=== PATIENT | female | born 1990 | race Two or more races ===

== ENCOUNTER 2017-05-17 20:24 | Emergency (ER) | payer MEDICAID ==
[~2017-05-17] VITALS: Ht 160 cm; Wt 72.6 kg
[2017-05-17 21:10] LABS: Basophils # (auto) 0 uL; Eosinophils # (auto) 0 uL; Eosinophils % (auto) 0.2 % (0.0-7.0); Lymphocytes # (auto) 3.2 uL; Monocytes # (auto) 0.8 uL; Monocytes % (auto) 6.2 % (0.0-12.0); Neutrophils # (auto) 8.5 uL
[2017-05-17 21:10] LABS: Urine Bacteria FEW /hpf (None Seen); Urine Blood Negative /uL (Negative); Urine Mucus FEW (None Seen); Urine Specific Gravity 1.023 (1.001-1.035); Urine WBC 19 /hpf (0 - 5)
[2017-05-17 21:12] LABS: Basophils % (auto) 0.1 % (0.0-2.0); Hematocrit 38.5 % (36.0-46.0); Lymphocytes % (auto) 25.5 % (10.0-50.0); Mean Corpuscular Hemoglobin 26.7 pg (28.0-32.0); Mean Corpuscular Hgb Conc. 33.9 g/dL (32.0-36.0); Platelet Count (auto) 242 10^3/uL (140-450); Red Blood Cells 4.87 10^6/uL (4.0-5.20); Red Cell Distribution Width 13.3 % (11.8-14.3); White Blood Cell 12.4 10^3/uL (4.4-10.8)
[2017-05-17 21:23] LABS: Albumin 3.6 g/dL (3.4-5.0); BUN/Creatinine Ratio 21.7; Calcium 8.5 mg/dL (8.5-10.1); Potassium 3.6 mmol/L (3.5-5.1)
[2017-05-17 21:25] LABS: Bilirubin, Total 0.3 mg/dL (0.2-1.0); Total Protein 7.5 g/dL (6.4-8.2)
[2017-05-18 02:54] VITALS: BP 150/100
== END 2017-05-18 03:32 | disposition home or self-care (01) ==
LOC: ER 20:24
DX: N39.0 Urinary tract infection, site not specified (principal)
CPT/HCPCS: 36415; 76801; 76817; 80053; 81001; 81025; 84702; 85025

== ENCOUNTER 2017-05-22 17:09 | Emergency (ER) | payer MEDICAID ==
[~2017-05-22] VITALS: Ht 157.5 cm; Wt 72.6 kg
[2017-05-22 18:13] LABS: Basophils # (auto) 0 uL; Basophils % (auto) 0.1 % (0.0-2.0); Eosinophils # (auto) 0 uL; Eosinophils % (auto) 0.1 % (0.0-7.0); Hematocrit 39.4 % (36.0-46.0); Hemoglobin 13.8 g/dL (12.2-16.2); Lymphocytes # (auto) 2.8 uL; Lymphocytes % (auto) 25.9 % (10.0-50.0); Mean Corpuscular Hemoglobin 27.5 pg (28.0-32.0); Mean Corpuscular Hgb Conc. 35.1 g/dL (32.0-36.0); Mean Corpuscular Volume 78.4 fL (80.0-100.0); Monocytes # (auto) 0.6 uL; Monocytes % (auto) 5.4 % (0.0-12.0); Neutrophils # (auto) 7.3 uL; Neutrophils % (auto) 68.5 % (37.0-80.0); Platelet Count (auto) 235 10^3/uL (140-450); Red Blood Cells 5.03 10^6/uL (4.0-5.20); Red Cell Distribution Width 13.3 % (11.8-14.3); White Blood Cell 10.7 10^3/uL (4.4-10.8)
[2017-05-22 22:19] LABS: Urine Bacteria NONE SEEN /hpf (None Seen); Urine Blood Negative /uL (Negative); Urine Mucus FEW (None Seen); Urine Specific Gravity 1.038 (1.001-1.035); Urine WBC 4 /hpf (0 - 5)
[2017-05-22] MEDS ORDERED: SODIUM CHLORIDE 0.9% 1,000 ML IV ONE (23:30)
[2017-05-22] MEDS ORDERED: ONDANSETRON HCL 4 MG/2 ML VIAL IV ONE (23:30)
[2017-05-23 00:44] VITALS: BP 134/78
== END 2017-05-23 00:55 | disposition home or self-care (01) ==
LOC: ER 17:09 → EDBD 17:09 → EDUNIT# 17:09 → ER 05-23 00:55
DX: O20.0 Threatened abortion (principal); O16.1 Unspecified maternal hypertension, first trimester; Z3A.09 9 weeks gestation of pregnancy
CPT/HCPCS: 36415; 76801; 81001; 84702; 85025; 96361; 96374; 99285; J2405

== ENCOUNTER → 2017-06-01 | Outpatient (CLI) | payer MEDICAID ==
[2017-06-01 12:13] LABS: Basophils # (auto) 0 uL; Basophils % (auto) 0.2 % (0.0-2.0); Eosinophils # (auto) 0 uL; Eosinophils % (auto) 0.2 % (0.0-7.0); Hematocrit 39.9 % (36.0-46.0); Hemoglobin 13.9 g/dL (12.2-16.2); Lymphocytes # (auto) 2.3 uL; Lymphocytes % (auto) 26.6 % (10.0-50.0); Mean Corpuscular Hemoglobin 27.2 pg (28.0-32.0); Mean Corpuscular Hgb Conc. 34.8 g/dL (32.0-36.0); Mean Corpuscular Volume 78.4 fL (80.0-100.0); Monocytes # (auto) 0.4 uL; Monocytes % (auto) 4.7 % (0.0-12.0); Neutrophils % (auto) 68.3 % (37.0-80.0); Platelet Count (auto) 243 10^3/uL (140-450); Red Cell Distribution Width 13.5 % (11.8-14.3); White Blood Cell 8.8 10^3/uL (4.4-10.8)
[2017-06-01 12:59] LABS: Alcohol, Urine < 3.0 mg/dL (0-5); Amphetamine Screen, Urine NEGATIVE (NEGATIVE); Barbiturate Scree,Urine NEGATIVE (NEGATIVE); Benzodiazephine Screen, Urine NEGATIVE (NEGATIVE); Cannabinoid Screen, Urine POSITIVE (NEGATIVE); Cocaine Screen, Urine NEGATIVE (NEGATIVE); Opiate Scree,Urine NEGATIVE (NEGATIVE); Phencyclidine Screen, Urine NEGATIVE (NEGATIVE)
[2017-06-01 13:06] LABS: Beta HCG, Quantitative 57004 mlU/mL (1-3)
[2017-06-01 13:47] LABS: Thyroid Stimulating Hormone < 0.01 uIU/mL (0.358-3.74)
== END | disposition home or self-care (01) ==
LOC: LAB 11:15
PROVIDERS: ATTEND Specialist
DX: Z34.81 Encounter for supervision of other normal pregnancy, first trimester (principal); Z3A.11 11 weeks gestation of pregnancy
CPT/HCPCS: 36415; 80307; 83036; 84439; 84443; 84702; 85025; 86592; 86703; 86762; 86850; 86900; 86901; 87086; 87340; 87591

== ENCOUNTER 2017-06-15 00:34 | Emergency (ER) | payer MEDICAID ==
[~2017-06-15] VITALS: Ht 157.5 cm; Wt 73.0 kg
[2017-06-15 00:45] VITALS: BP 134/80
[2017-06-15 01:21] LABS: Basophils # (auto) 0 uL; Basophils % (auto) 0.2 % (0.0-2.0); Eosinophils # (auto) 0.1 uL; Eosinophils % (auto) 0.4 % (0.0-7.0); Hematocrit 37.2 % (36.0-46.0); Hemoglobin 12.9 g/dL (12.2-16.2); Lymphocytes # (auto) 2.9 uL; Lymphocytes % (auto) 24.1 % (10.0-50.0); Mean Corpuscular Hemoglobin 27.5 pg (28.0-32.0); Mean Corpuscular Hgb Conc. 34.7 g/dL (32.0-36.0); Mean Corpuscular Volume 79.4 fL (80.0-100.0); Monocytes # (auto) 0.6 uL; Monocytes % (auto) 5.3 % (0.0-12.0); Neutrophils # (auto) 8.3 uL; Nucleated Red Blood Cells % 0.1 %; Platelet Count (auto) 230 10^3/uL (140-450); Red Blood Cells 4.68 10^6/uL (4.0-5.20); Red Cell Distribution Width 13.3 % (11.8-14.3); White Blood Cell 11.9 10^3/uL (4.4-10.8)
[2017-06-15 01:39] LABS: Albumin 3.3 g/dL (3.4-5.0); Calcium 9.2 mg/dL (8.5-10.1); Potassium 3.4 mmol/L (3.5-5.1)
[2017-06-15 01:42] LABS: BUN/Creatinine Ratio 19.6; Bilirubin, Total 0.4 mg/dL (0.2-1.0); Total Protein 7.3 g/dL (6.4-8.2)
[2017-06-15 02:09] LABS: Urine Bacteria FEW /hpf (None Seen); Urine Blood Negative /uL (Negative); Urine Specific Gravity 1.008 (1.001-1.035); Urine WBC 5 /hpf (0 - 5)
== END 2017-06-15 04:41 | disposition left against medical advice (07) ==
LOC: ER 00:34
DX: R10.30 Lower abdominal pain, unspecified (principal); Z53.21 Procedure and treatment not carried out due to patient leaving prior to being seen by health care provider
CPT/HCPCS: 36415; 80053; 81001; 81025; 84702; 85025

== ENCOUNTER 2017-11-15 10:15 | Observation (INO) | payer MEDICAID ==
[~2017-11-15 10:15] MED LIST: PREN-96 PO
== END 2017-11-15 13:15 | disposition home or self-care (01) | DRG 566 ==
LOC: LDRP 10:15
PROVIDERS: ADMIT Obstetrics & Gynecology; ATTEND Obstetrics & Gynecology
DX: O10.913 Unspecified pre-existing hypertension complicating pregnancy, third trimester (principal); E05.90 Thyrotoxicosis, unspecified without thyrotoxic crisis or storm; O99.283 Endocrine, nutritional and metabolic diseases complicating pregnancy, third trimester; Z3A.35 35 weeks gestation of pregnancy; Z87.891 Personal history of nicotine dependence
CPT/HCPCS: 59025; 76818; 81002; G0378

== ENCOUNTER 2017-11-23 11:47 | Observation (INO) | payer MEDICAID | END 2017-11-23 13:15 | disposition home or self-care (01) | DRG 566 | LOC: LDRP 11:47 | PROVIDERS: ADMIT Obstetrics & Gynecology; ATTEND Obstetrics & Gynecology | DX: O13.3 Gestational [pregnancy-induced] hypertension without significant proteinuria, third trimester (principal); O26.893 Other specified pregnancy related conditions, third trimester; G43.909 Migraine, unspecified, not intractable, without status migrainosus; M54.9 Dorsalgia, unspecified; R50.9 Fever, unspecified; Z3A.36 36 weeks gestation of pregnancy | CPT/HCPCS: 59025; 76818; 81002; G0378 ==

== ENCOUNTER 2017-11-30 11:11 | Observation (INO) | payer MEDICAID ==
[2017-11-30 13:55] LABS: Urine WBC None Seen /hpf (0 - 5)
[2017-11-30 14:12] LABS: Urine Bacteria NONE SEEN /hpf (None Seen); Urine Blood Negative /uL (Negative); Urine Specific Gravity 1.003 (1.001-1.035)
[2017-11-30 14:18] LABS: Basophils # (auto) 0.1 uL; Basophils % (auto) 0.5 % (0.0-2.0); Eosinophils # (auto) 0 uL; Eosinophils % (auto) 0.2 % (0.0-7.0); Hematocrit 37.9 % (36.0-46.0); Hemoglobin 12.8 g/dL (12.2-16.2); Lymphocytes # (auto) 2.1 uL; Lymphocytes % (auto) 18.6 % (10.0-50.0); Mean Corpuscular Hemoglobin 27.8 pg (28.0-32.0); Mean Corpuscular Hgb Conc. 33.9 g/dL (32.0-36.0); Mean Corpuscular Volume 82.1 fL (80.0-100.0); Monocytes # (auto) 0.6 uL; Neutrophils # (auto) 8.6 uL; Neutrophils % (auto) 75.7 % (37.0-80.0); Nucleated Red Blood Cells % 0.1 %; Platelet Count (auto) 223 10^3/uL (140-450); Red Blood Cells 4.62 10^6/uL (4.0-5.20); Red Cell Distribution Width 12.8 % (11.8-14.3); White Blood Cell 11.3 10^3/uL (4.4-10.8)
[2017-11-30 14:19] LABS: INR 0.81 (0.9-1.15); Partial Thromboplastin Time 25.6 sec (23.78-33.04); Prothrombin Time 8.8 sec (9.27-12.13)
[2017-11-30 14:32] LABS: Albumin 2.5 g/dL (3.4-5.0); Calcium 8.6 mg/dL (8.5-10.1); Potassium 4.2 mmol/L (3.5-5.1)
[2017-11-30 14:34] LABS: Uric Acid 4.6 mg/dL (2.6-6.0)
[2017-11-30 14:37] LABS: Bilirubin, Total 0.2 mg/dL (0.2-1.0)
== END 2017-11-30 15:00 | disposition home or self-care (01) | DRG 566 ==
LOC: LDRP 11:11
PROVIDERS: ADMIT Obstetrics & Gynecology; ATTEND Obstetrics & Gynecology
DX: O26.893 Other specified pregnancy related conditions, third trimester (principal); I10 Essential (primary) hypertension; O62.9 Abnormality of forces of labor, unspecified; Z3A.37 37 weeks gestation of pregnancy
CPT/HCPCS: 36415; 59025; 76818; 80053; 81001; 81002; 84550; 85025; 85610; 85730; G0378

== ENCOUNTER 2017-12-02 08:50 | Observation (INO) | payer MEDICAID ==
[2017-12-02 10:15] LABS: Protein, Urine 7.1 mg/dL (0.0-11.9)
[2017-12-02 10:21] LABS: 24 Hr. Total Protein, Urine 99.4 mg/24 Hr (<149.1)
== END 2017-12-02 10:38 | disposition home or self-care (01) | DRG 566 ==
LOC: LDRP 08:50
PROVIDERS: ADMIT Obstetrics & Gynecology; ATTEND Obstetrics & Gynecology
DX: O13.3 Gestational [pregnancy-induced] hypertension without significant proteinuria, third trimester (principal); E03.9 Hypothyroidism, unspecified; O99.283 Endocrine, nutritional and metabolic diseases complicating pregnancy, third trimester; Z3A.37 37 weeks gestation of pregnancy; Z87.891 Personal history of nicotine dependence
CPT/HCPCS: 59025; 81002; 84156; G0378

== ENCOUNTER 2017-12-06 22:02 | Observation (INO) | payer MEDICAID ==
[2017-12-06 23:38] LABS: Urine Bacteria NONE SEEN /hpf (None Seen); Urine Blood Negative /uL (Negative); Urine Specific Gravity 1.025 (1.001-1.035); Urine WBC 1 /hpf (0 - 5)
[2017-12-06 23:48] LABS: Alcohol, Urine < 3.0 mg/dL (0-5); Amphetamine Screen, Urine NEGATIVE (NEGATIVE); Barbiturate Scree,Urine NEGATIVE (NEGATIVE); Benzodiazephine Screen, Urine NEGATIVE (NEGATIVE); Cannabinoid Screen, Urine NEGATIVE (NEGATIVE); Cocaine Screen, Urine NEGATIVE (NEGATIVE); Opiate Scree,Urine NEGATIVE (NEGATIVE); Phencyclidine Screen, Urine NEGATIVE (NEGATIVE)
== END 2017-12-06 23:20 | disposition home or self-care (01) | DRG 566 ==
LOC: LDRP 22:02
PROVIDERS: ADMIT Specialist; ATTEND Specialist
DX: O26.893 Other specified pregnancy related conditions, third trimester (principal); F41.9 Anxiety disorder, unspecified; R03.0 Elevated blood-pressure reading, without diagnosis of hypertension; O99.343 Other mental disorders complicating pregnancy, third trimester; Z3A.38 38 weeks gestation of pregnancy
CPT/HCPCS: 59025; 80307; 81001; 81002; G0378

== ENCOUNTER 2017-12-07 10:55 | Observation (INO) | payer MEDICAID | END 2017-12-07 12:00 | disposition home or self-care (01) | DRG 566 | LOC: LDRP 10:55 | PROVIDERS: ADMIT Obstetrics & Gynecology; ATTEND Obstetrics & Gynecology | DX: O26.892 Other specified pregnancy related conditions, second trimester (principal); R50.9 Fever, unspecified; G43.909 Migraine, unspecified, not intractable, without status migrainosus; M54.9 Dorsalgia, unspecified; M79.10 Myalgia, unspecified site; Z3A.00 Weeks of gestation of pregnancy not specified | CPT/HCPCS: 76818; G0378 ==

== ENCOUNTER 2017-12-08 10:40 | Observation (INO) | payer MEDICAID | END 2017-12-08 12:00 | disposition home or self-care (01) | DRG 566 | LOC: LDRP 10:40 | PROVIDERS: ADMIT Obstetrics & Gynecology; ATTEND Obstetrics & Gynecology | DX: O62.9 Abnormality of forces of labor, unspecified (principal); O10.913 Unspecified pre-existing hypertension complicating pregnancy, third trimester; O26.893 Other specified pregnancy related conditions, third trimester; N89.8 Other specified noninflammatory disorders of vagina; O99.343 Other mental disorders complicating pregnancy, third trimester; F41.9 Anxiety disorder, unspecified; Z3A.38 38 weeks gestation of pregnancy; Z87.891 Personal history of nicotine dependence | CPT/HCPCS: 59025; 81002; G0378 ==

== ENCOUNTER 2017-12-15 08:15 | Inpatient (IN) | payer MEDICAID ==
[~2017-12-15] VITALS: Ht 30.5 cm; Wt 0.5 kg
[2017-12-15] MEDS ORDERED: LACT. RINGERS/OXYTOCIN 20UNITS 1,000 ML IV SCH (08:17)
[2017-12-15] MEDS ORDERED: LIDOCAINE 2% (LOCAL ANESTH.) PF 5ml SDV ID ONE (08:30)
[2017-12-15] MEDS ORDERED: WITCH HAZEL-GLYCERIN PAD TOP PRN (08:30)
[2017-12-15] MEDS ORDERED: PHISODERM TOP SOLN 240ML BTL TOP PRN (08:30)
[2017-12-15] MEDS ORDERED: NALBUPHINE HCL 10 MG/1ml INJECTION IV PRN (08:30)
[2017-12-15] MEDS ORDERED: METHYLERGONOVINE MALEATE 0.2 MG/ML AMP IM PRN (08:30)
[2017-12-15] MEDS ORDERED: DERMOPLAST 60ML BOTTLE TOP PRN (08:30)
[2017-12-15 09:19] LABS: Basophils # (auto) 0 uL; Basophils % (auto) 0.2 % (0.0-2.0); Eosinophils # (auto) 0 uL; Eosinophils % (auto) 0.3 % (0.0-7.0); Hematocrit 38.1 % (36.0-46.0); Hemoglobin 12.9 g/dL (12.2-16.2); Lymphocytes # (auto) 2.3 uL; Lymphocytes % (auto) 21.6 % (10.0-50.0); Mean Corpuscular Hgb Conc. 33.9 g/dL (32.0-36.0); Mean Corpuscular Volume 82.6 fL (80.0-100.0); Monocytes # (auto) 0.5 uL; Monocytes % (auto) 4.4 % (0.0-12.0); Neutrophils % (auto) 73.5 % (37.0-80.0); Platelet Count (auto) 208 10^3/uL (140-450); Red Blood Cells 4.61 10^6/uL (4.0-5.20); Red Cell Distribution Width 13.1 % (11.8-14.3); White Blood Cell 10.9 10^3/uL (4.4-10.8)
[2017-12-15 09:23] LABS: Urine Bacteria FEW /hpf (None Seen); Urine Blood 2+ /uL (Negative); Urine Mucus FEW (None Seen); Urine WBC 5 /hpf (0 - 5)
[2017-12-15 09:30] LABS: Albumin 2.6 g/dL (3.4-5.0); Potassium 3.8 mmol/L (3.5-5.1)
[2017-12-15 09:30] LABS: Alcohol, Urine < 3.0 mg/dL (0-5); Amphetamine Screen, Urine NEGATIVE (NEGATIVE); Barbiturate Scree,Urine NEGATIVE (NEGATIVE); Benzodiazephine Screen, Urine NEGATIVE (NEGATIVE); Cannabinoid Screen, Urine NEGATIVE (NEGATIVE); Cocaine Screen, Urine NEGATIVE (NEGATIVE); Opiate Scree,Urine NEGATIVE (NEGATIVE); Phencyclidine Screen, Urine NEGATIVE (NEGATIVE)
[2017-12-15 09:32] LABS: INR 0.82 (0.9-1.15); Partial Thromboplastin Time 25.9 sec (23.78-33.04); Prothrombin Time 8.9 sec (9.27-12.13)
[2017-12-15 09:34] LABS: BUN/Creatinine Ratio 17.5; Bilirubin, Total 0.2 mg/dL (0.2-1.0); Total Protein 7.1 g/dL (6.4-8.2)
[2017-12-15] MEDS: LACTATED RINGER'S 1,000 ML IV SCH ×2 (16:07)
[2017-12-15] MEDS ORDERED: ePHEDrine SULFATE 50 MG/ML AMP IV ONE ×2 (17:30→18:30)
[2017-12-15] MEDS ORDERED: fentaNYL W ROPIVACAINE 150 ML EPI SCH ×2 (17:30→18:30)
[2017-12-15] MEDS ORDERED: SODIUM CHLORIDE 0.9% 500 ML IV PRN (18:25)
[2017-12-15] MEDS ORDERED: NALOXONE HCL 0.4 MG/ML VIAL IV ONE (18:30)
[2017-12-15] MEDS: IBUPROFEN 600 MG TAB PO PRN (22:26)
[2017-12-16 03:20] VITALS: BP 134/67
[2017-12-16] MEDS: IBUPROFEN 600 MG TAB PO PRN ×3 (05:41→21:22)
[2017-12-16 07:10] LABS: RPR Non Reactive (Non Reactive)
[2017-12-16 07:30] VITALS: BP 125/70
[2017-12-16] MEDS: DOCUSATE CALCIUM 240 MG CAP PO SCH (10:00)
[2017-12-16 11:00] VITALS: BP 132/74
[2017-12-16 15:30] VITALS: BP 132/76
[2017-12-16] MEDS: ABILIFY 20 MG PO SCH (17:16)
[2017-12-16] MEDS ORDERED: INFLUENZA QUAD 2018-2019 0.5 ML SYRG IM ONE (17:30)
[2017-12-16] MEDS ORDERED: TETANUS-DIPTH-ACEL PERTUSSIS 0.5ML SYRG IM ONE (17:30)
[2017-12-16 19:00] VITALS: BP 140/77
[2017-12-16] MEDS ORDERED: QUEtiapine FUMARATE 25 MG TAB PO SCH (22:00)
[2017-12-16 23:00] VITALS: BP 108/56
[2017-12-17 03:00] VITALS: BP 129/60
[2017-12-17] MEDS: IBUPROFEN 600 MG TAB PO PRN ×2 (06:00→11:20)
[2017-12-17 07:00] VITALS: BP 135/86
[2017-12-17] MEDS: ABILIFY 20 MG PO SCH (10:00)
[2017-12-17] MEDS: DOCUSATE CALCIUM 240 MG CAP PO SCH (10:51)
[2017-12-17 11:10] VITALS: BP 139/85
== END 2017-12-17 13:30 | disposition home or self-care (01) | DRG 560 ==
LOC: LDRP 08:15
PROVIDERS: ADMIT Specialist; ATTEND Specialist
PROC: 10D07Z6 Extraction of Products of Conception, Vacuum, Via Natural or Artificial Opening (ICD-10-PCS; principal; 2017-12-15)
PROC: 3E0R3BZ Introduction of Anesthetic Agent into Spinal Canal, Percutaneous Approach (ICD-10-PCS; 2017-12-15)
PROC: 00HU33Z Insertion of Infusion Device into Spinal Canal, Percutaneous Approach (ICD-10-PCS; 2017-12-15)
PROC: 0W8NXZZ Division of Female Perineum, External Approach (ICD-10-PCS; 2017-12-15)
DX: O99.344 Other mental disorders complicating childbirth (principal); F31.9 Bipolar disorder, unspecified; Z37.0 Single live birth; Z3A.39 39 weeks gestation of pregnancy
CPT/HCPCS: 36415; 59025; 80053; 80307; 81001; 84443; 84550; 85025; 85610; 85730; 86592; 86850; 86900; 86901; 90674; 90715; 94762; 96361; 96366; 96372; G0378; J2001; J2590; J3010

== ENCOUNTER 2019-05-05 16:52 | Emergency (ER) | payer MEDICAID ==
[~2019-05-05] VITALS: Ht 157.5 cm; Wt 83.9 kg
[2019-05-05] MEDS ORDERED: guaiFENesin-DM 100/10mg/5ml SYR PO ONE (19:00)
[2019-05-05] MEDS ORDERED: ACETAMINOPHEN 500 MG TAB PO ONE (19:00)
[2019-05-05] MEDS ORDERED: IBUPROFEN 800 MG TAB PO ONE (19:00)
[2019-05-05] MEDS ORDERED: ALBUTEROL SULF 2.5 MG/0.5ML(0.5%) NEB SOLN NEB ONE (19:00)
[2019-05-05] MEDS ORDERED: PSEUDOEPHEDRINE HCL 30 MG TAB PO ONE (19:00)
[2019-05-05] MEDS ORDERED: IPRATROPIUM BROM 0.5 MG/2.5ML INH SOL NEB ONE (19:00)
[2019-05-05] MEDS ORDERED: ALBUTEROL SULF 2.5 MG/0.5ML(0.5%) NEB SOLN ONE (19:29)
[2019-05-05] MEDS ORDERED: IPRATROPIUM BROM 0.5 MG/2.5ML INH SOL ONE (19:29)
[2019-05-05 20:41] VITALS: BP 115/88
== END 2019-05-05 21:04 | disposition home or self-care (01) ==
LOC: ER 16:52
DX: J02.0 Streptococcal pharyngitis (principal); J18.9 Pneumonia, unspecified organism
CPT/HCPCS: 71045; 87804; 87880; 94640; 99284; J7644

== ENCOUNTER 2019-08-19 02:28 | Emergency (ER) | payer MEDICAID ==
[~2019-08-19] VITALS: Ht 157.5 cm; Wt 88.5 kg
[2019-08-19] MEDS ORDERED: cloNIDine HCL 0.1 MG TAB PO ONE (02:45)
[2019-08-19 03:27] LABS: Basophils # (auto) 0 10 ^3/uL (0-0.2); Basophils % (auto) 0.3 % (0.0-2.0); Eosinophils # (auto) 0.1 10 ^3/uL (0-0.8); Eosinophils % (auto) 0.8 % (0.0-7.0); Hematocrit 43.8 % (36.0-46.0); Hemoglobin 14.7 g/dL (12.2-16.2); Lymphocytes # (auto) 4.1 10 ^3/uL (0.4-5.4); Lymphocytes % (auto) 33.9 % (10.0-50.0); Mean Corpuscular Hemoglobin 27.5 pg (28.0-32.0); Mean Corpuscular Hgb Conc. 33.5 g/dL (32.0-36.0); Mean Corpuscular Volume 82.2 fL (80.0-100.0); Monocytes # (auto) 0.9 10 ^3/uL (0-1.3); Monocytes % (auto) 7.1 % (0.0-12.0); Neutrophils % (auto) 57.9 % (37.0-80.0); Platelet Count (auto) 246 10^3/uL (140-450); Red Blood Cells 5.32 10^6/uL (4.0-5.20); Red Cell Distribution Width 13.1 % (11.8-14.3)
[2019-08-19 03:43] LABS: INR 0.95 (0.9-1.15); Partial Thromboplastin Time 26.9 sec (23.64-32.05)
[2019-08-19 03:53] LABS: Albumin 3.6 g/dL (3.4-5.0); Anion Gap 9 (5-15); Blood Urea Nitrogen 15 mg/dL (7-18); Calcium 8.6 mg/dL (8.5-10.1); Carbon Dioxide 24 mmol/L (21-32); Chloride 106 mmol/L (98-107); Glucose 85 mg/dL (74-106); Potassium 4.2 mmol/L (3.5-5.1); Sodium 139 mmol/L (136-145)
[2019-08-19 03:54] LABS: Alanine Aminotransferase 16 U/L (13-56); Aspartate Aminotransferase 5 U/L (15-37); BUN/Creatinine Ratio 23.1; GFR African American 138 mL/min; GFR Non-African American 114 mL/min
[2019-08-19 03:59] LABS: Alkaline Phosphatase 71 U/L (45-117); Bilirubin, Total 0.3 mg/dL (0.2-1.0); Total Protein 7.7 g/dL (6.4-8.2)
[2019-08-19 04:04] VITALS: BP 128/83
[2019-08-19] MEDS ORDERED: ONDANSETRON HCL 4 MG/2 ML VIAL IV ONE (04:15)
[2019-08-19] MEDS ORDERED: SODIUM CHLORIDE 0.9% 1,000 ML IV ONE (04:15)
== END 2019-08-19 05:29 | disposition home or self-care (01) ==
LOC: ER 02:34
DX: A09 Infectious gastroenteritis and colitis, unspecified (principal); Z20.828 Contact with and (suspected) exposure to other viral communicable diseases
CPT/HCPCS: 36415; 71045; 80053; 82728; 83605; 83880; 84484; 85025; 85610; 85730; 87040; 87070; 87635; 87804; 87880; 93005; 96374; 99285; J2405

== ENCOUNTER 2020-03-01 11:45 | Emergency (ER) | payer MEDICAID ==
[~2020-03-01] VITALS: Ht 157.5 cm; Wt 81.6 kg
[2020-03-01 12:49] VITALS: BP 141/90
[2020-03-01] MEDS ORDERED: ACETAMINOPHEN 325 MG TAB PO ONE (13:00)
[2020-03-01 13:09] LABS: Urine Bacteria NONE SEEN /hpf (None Seen); Urine Blood TRACE /uL (Negative); Urine Mucus FEW (None Seen); Urine Specific Gravity 1.021 (1.001-1.035); Urine WBC 1 /hpf (0 - 5)
== END 2020-03-01 17:07 | disposition home or self-care (01) ==
LOC: ER 11:45
DX: O20.0 Threatened abortion (principal); H11.31 Conjunctival hemorrhage, right eye; Z3A.01 Less than 8 weeks gestation of pregnancy
CPT/HCPCS: 36415; 76801; 81001; 81025; 84702

== ENCOUNTER 2020-04-11 21:46 | Emergency (ER) | payer MEDICAID ==
[~2020-04-11] VITALS: Ht 157.5 cm; Wt 83.5 kg
[2020-04-11 22:48] LABS: Basophils # (auto) 0 10 ^3/uL (0-0.2); Basophils % (auto) 0.1 % (0.0-2.0); Eosinophils # (auto) 0 10 ^3/uL (0-0.8); Eosinophils % (auto) 0.1 % (0.0-7.0); Hematocrit 36.9 % (36.0-46.0); Lymphocytes % (auto) 13.2 % (10.0-50.0); Mean Corpuscular Hemoglobin 28.7 pg (28.0-32.0); Mean Corpuscular Hgb Conc. 35.2 g/dL (32.0-36.0); Mean Corpuscular Volume 81.6 fL (80.0-100.0); Monocytes # (auto) 0.6 10 ^3/uL (0-1.3); Monocytes % (auto) 3.9 % (0.0-12.0); Neutrophils # (auto) 12.4 10 ^3/uL (1.6-8.6); Neutrophils % (auto) 82.7 % (37.0-80.0); Platelet Count (auto) 213 10^3/uL (140-450); Red Blood Cells 4.53 10^6/uL (4.0-5.20); Red Cell Distribution Width 12.3 % (11.8-14.3); White Blood Cell 14.9 10^3/uL (4.4-10.8)
[2020-04-11 23:11] LABS: Albumin 3.2 g/dL (3.4-5.0); Calcium 8.6 mg/dL (8.5-10.1); Potassium 3.6 mmol/L (3.5-5.1)
[2020-04-11 23:14] LABS: BUN/Creatinine Ratio 24.4; Bilirubin, Total 0.3 mg/dL (0.2-1.0); Total Protein 7.5 g/dL (6.4-8.2)
[2020-04-11 23:52] LABS: Urine Bacteria FEW /hpf (None Seen); Urine Blood Negative /uL (Negative); Urine Mucus FEW (None Seen); Urine Specific Gravity 1.023 (1.001-1.035); Urine WBC 1 /hpf (0 - 5)
[2020-04-12 03:40] VITALS: BP 120/56
== END 2020-04-12 05:32 | disposition home or self-care (01) ==
LOC: ER 21:48
DX: O20.0 Threatened abortion (principal); S39.92XA Unspecified injury of lower back, initial encounter; S39.91XA Unspecified injury of abdomen, initial encounter; R51.9 Headache, unspecified; Z3A.12 12 weeks gestation of pregnancy; W22.8XXA Striking against or struck by other objects, initial encounter; Y93.89 Activity, other specified; Y92.89 Other specified places as the place of occurrence of the external cause; Y99.8 Other external cause status
CPT/HCPCS: 36415; 76801; 80053; 81001; 84702; 85025

== ENCOUNTER 2020-07-30 15:19 | Observation (INO) | payer MEDICAID ==
[~2020-07-30] VITALS: Ht 160 cm; Wt 73.5 kg
[2020-07-30] MEDS ORDERED: BETAMETHASONE ACET (30mg/5ml) 5ml Vial 6mg/ml IM ONE (16:45)
== END 2020-07-30 17:15 | disposition home or self-care (01) ==
LOC: LDRP 15:19
PROVIDERS: ADMIT Obstetrics & Gynecology; ATTEND Obstetrics & Gynecology
DX: O60.02 Preterm labor without delivery, second trimester (principal); O26.872 Cervical shortening, second trimester; Z3A.27 27 weeks gestation of pregnancy
CPT/HCPCS: 59025; 81002; 96372; G0378; J0702

== ENCOUNTER 2020-07-31 10:15 | Observation (INO) | payer MEDICAID ==
[~2020-07-31] VITALS: Ht 160 cm; Wt 88.0 kg
[2020-07-31] MEDS ORDERED: BETAMETHASONE ACET (30mg/5ml) 5ml Vial 6mg/ml IM ONE (11:00)
== END 2020-07-31 11:58 | disposition home or self-care (01) ==
LOC: LDRP 10:15
PROVIDERS: ADMIT Specialist; ATTEND Specialist
DX: O60.03 Preterm labor without delivery, third trimester (principal); Z3A.28 28 weeks gestation of pregnancy
CPT/HCPCS: 59025; 81002; 94760; 96372; G0378

== ENCOUNTER 2020-08-07 09:16 | Observation (INO) | payer MEDICAID ==
[2020-08-07] MEDS ORDERED: NIF10C GT (11:50)
== END 2020-08-07 11:48 | disposition home or self-care (01) ==
LOC: LDRP 10:40
PROVIDERS: ADMIT Obstetrics & Gynecology; ATTEND Obstetrics & Gynecology
DX: O60.03 Preterm labor without delivery, third trimester (principal); Z3A.29 29 weeks gestation of pregnancy
CPT/HCPCS: 59025; 76817; 76818; 81002; G0378

== ENCOUNTER 2020-08-26 14:43 | Observation (INO) | payer MEDICAID ==
[~2020-08-26] VITALS: Ht 157.5 cm; Wt 88.5 kg
[~2020-08-26 14:43] MED LIST changes: +NIF10C GT
[2020-08-26] MEDS ORDERED: BETAMETHASONE ACET (6MG/ML) 5ML VIAL IM ONE (15:15)
[2020-08-26] MEDS ORDERED: TERBUTALINE SULFATE 1 MG/ML 1ML VIAL SC SCH (15:45)
[2020-08-26 16:02] LABS: Urine Amorphous Crystal FEW /hpf (None Seen); Urine Bacteria FEW /hpf (None Seen); Urine Blood 2+ /uL (Negative); Urine Mucus FEW (None Seen); Urine Specific Gravity 1.027 (1.001-1.035); Urine WBC 2 /hpf (0 - 5)
[2020-08-26 16:13] LABS: Alcohol, Urine < 3.0 mg/dL (0-10); Amphetamine Screen, Urine NEGATIVE (NEGATIVE); Barbiturate Scree,Urine NEGATIVE (NEGATIVE); Benzodiazephine Screen, Urine NEGATIVE (NEGATIVE); Cannabinoid Screen, Urine NEGATIVE (NEGATIVE); Cocaine Screen, Urine NEGATIVE (NEGATIVE); Opiate Scree,Urine NEGATIVE (NEGATIVE); Phencyclidine Screen, Urine NEGATIVE (NEGATIVE)
== END 2020-08-26 17:20 | disposition home or self-care (01) ==
LOC: LDRP 14:43
PROVIDERS: ADMIT Obstetrics & Gynecology; ATTEND Obstetrics & Gynecology
DX: O99.891 Other specified diseases and conditions complicating pregnancy (principal); M54.5 Low back pain; O62.9 Abnormality of forces of labor, unspecified; Z3A.31 31 weeks gestation of pregnancy
CPT/HCPCS: 59025; 76805; 76817; 80307; 81001; 81002; 96372; G0378; J3105

== ENCOUNTER 2020-09-11 11:00 | Observation (INO) | payer MEDICAID | END 2020-09-11 14:00 | disposition home or self-care (01) | LOC: LDRP 11:00 → UNDOADMOB 11:00 → LDRP 12:24 | PROVIDERS: ADMIT Specialist; ATTEND Specialist | DX: O26.873 Cervical shortening, third trimester (principal); Z3A.34 34 weeks gestation of pregnancy | CPT/HCPCS: 59025; 76817; 76818; 81002; 94760; G0378 ==

== ENCOUNTER 2020-09-18 13:34 | Observation (INO) | payer MEDICAID | END 2020-09-18 14:55 | disposition home or self-care (01) | LOC: LDRP 13:34 | PROVIDERS: ADMIT Obstetrics & Gynecology; ATTEND Obstetrics & Gynecology | DX: O60.03 Preterm labor without delivery, third trimester (principal); O26.873 Cervical shortening, third trimester; O99.323 Drug use complicating pregnancy, third trimester; F12.90 Cannabis use, unspecified, uncomplicated; Z87.891 Personal history of nicotine dependence; Z3A.35 35 weeks gestation of pregnancy | CPT/HCPCS: 59025; 76817; 76818; 81002; 94762; G0378 ==

== ENCOUNTER → 2020-09-23 | Outpatient (CLI) | payer MEDICAID ==
[2020-09-23 10:54] LABS: Basophils # (auto) 0 10 ^3/uL (0-0.2); Basophils % (auto) 0.2 % (0.0-2.0); Eosinophils # (auto) 0 10 ^3/uL (0-0.8); Eosinophils % (auto) 0.4 % (0.0-7.0); Hematocrit 37.3 % (36.0-46.0); Hemoglobin 13.3 g/dL (12.2-16.2); Lymphocytes # (auto) 2.4 10 ^3/uL (0.4-5.4); Lymphocytes % (auto) 17.8 % (10.0-50.0); Mean Corpuscular Hemoglobin 28.9 pg (28.0-32.0); Mean Corpuscular Hgb Conc. 35.7 g/dL (32.0-36.0); Monocytes # (auto) 0.7 10 ^3/uL (0-1.3); Monocytes % (auto) 5.5 % (0.0-12.0); Neutrophils # (auto) 10.3 10 ^3/uL (1.6-8.6); Neutrophils % (auto) 76.1 % (37.0-80.0); Nucleated Red Blood Cells % 0.1 %; Red Blood Cells 4.61 10^6/uL (4.0-5.20); Red Cell Distribution Width 13.2 % (11.8-14.3); White Blood Cell 13.5 10^3/uL (4.4-10.8)
== END | disposition home or self-care (01) ==
LOC: LAB 10:40
PROVIDERS: ATTEND Specialist
DX: Z34.83 Encounter for supervision of other normal pregnancy, third trimester (principal); Z3A.36 36 weeks gestation of pregnancy
CPT/HCPCS: 36415; 82951; 85025

== ENCOUNTER 2020-09-25 12:07 | Observation (INO) | payer MEDICAID | END 2020-09-25 14:30 | disposition home or self-care (01) | LOC: LDRP 13:20 | PROVIDERS: ADMIT Obstetrics & Gynecology; ATTEND Obstetrics & Gynecology | DX: O60.03 Preterm labor without delivery, third trimester (principal); O26.873 Cervical shortening, third trimester; O34.63 Maternal care for abnormality of vagina, third trimester; N89.8 Other specified noninflammatory disorders of vagina; O99.323 Drug use complicating pregnancy, third trimester; F12.90 Cannabis use, unspecified, uncomplicated; Z3A.36 36 weeks gestation of pregnancy; Z87.891 Personal history of nicotine dependence | CPT/HCPCS: 59025; 76818; 81002; G0378 ==

== ENCOUNTER 2020-10-06 13:00 | Observation (INO) | payer MEDICAID ==
[2020-10-06 14:07] LABS: Basophils # (auto) 0 10 ^3/uL (0-0.2); Basophils % (auto) 0.3 % (0.0-2.0); Eosinophils # (auto) 0 10 ^3/uL (0-0.8); Eosinophils % (auto) 0.1 % (0.0-7.0); Hematocrit 37.7 % (36.0-46.0); Hemoglobin 13.1 g/dL (12.2-16.2); Lymphocytes # (auto) 1.9 10 ^3/uL (0.4-5.4); Mean Corpuscular Hemoglobin 28.5 pg (28.0-32.0); Mean Corpuscular Hgb Conc. 34.8 g/dL (32.0-36.0); Mean Corpuscular Volume 81.8 fL (80.0-100.0); Monocytes # (auto) 0.5 10 ^3/uL (0-1.3); Monocytes % (auto) 4.4 % (0.0-12.0); Neutrophils # (auto) 9.9 10 ^3/uL (1.6-8.6); Neutrophils % (auto) 80.2 % (37.0-80.0); Red Blood Cells 4.61 10^6/uL (4.0-5.20); Red Cell Distribution Width 13.1 % (11.8-14.3); White Blood Cell 12.4 10^3/uL (4.4-10.8)
[2020-10-06 14:25] LABS: Albumin 2.2 g/dL (3.4-5.0); Calcium 8.5 mg/dL (8.5-10.1); Potassium 3.5 mmol/L (3.5-5.1); Uric Acid 4.5 mg/dL (2.6-6.0)
[2020-10-06 14:29] LABS: INR 0.92 (0.9-1.15); Partial Thromboplastin Time 25.1 sec (23.6-33.0)
[2020-10-06 14:32] LABS: BUN/Creatinine Ratio 19.1; Bilirubin, Total 0.3 mg/dL (0.2-1.0); Total Protein 6.8 g/dL (6.4-8.2)
[2020-10-06 14:37] LABS: Urine Bacteria FEW /hpf (None Seen); Urine Blood TRACE /uL (Negative); Urine Mucus FEW (None Seen); Urine Specific Gravity 1.024 (1.001-1.035); Urine WBC 4 /hpf (0 - 5)
[2020-10-06 14:53] LABS: Protein, Urine 22.2 mg/dL (0.0-11.9)
== END 2020-10-06 15:45 | disposition home or self-care (01) ==
LOC: LDRP 13:00
PROVIDERS: ADMIT Obstetrics & Gynecology; ATTEND Obstetrics & Gynecology
DX: O13.3 Gestational [pregnancy-induced] hypertension without significant proteinuria, third trimester (principal); O24.419 Gestational diabetes mellitus in pregnancy, unspecified control; O99.323 Drug use complicating pregnancy, third trimester; F12.90 Cannabis use, unspecified, uncomplicated; Z3A.37 37 weeks gestation of pregnancy; Z87.891 Personal history of nicotine dependence
CPT/HCPCS: 36415; 59025; 76818; 80053; 81001; 81002; 82570; 84156; 84550; 85025; 85610; 85730; G0378

== ENCOUNTER 2020-10-07 02:03 | Inpatient (IN) | payer MEDICAID ==
[~2020-10-07] VITALS: Ht 160 cm; Wt 94.8 kg
[~2020-10-07 02:03] MED LIST changes: -NIF10C GT
[2020-10-07] MEDS ORDERED: LACTATED RINGER'S 1,000 ML IV SCH (02:45)
[2020-10-07] MEDS ORDERED: DERMOPLAST 60ML BOTTLE TOP PRN (02:45)
[2020-10-07] MEDS ORDERED: LIDOCAINE 2%HCL (LOCAL ANESTH.) INJ 20ML MDV IJ PRN (02:45)
[2020-10-07] MEDS ORDERED: WITCH HAZEL-GLYCERIN PAD TOP PRN (02:45)
[2020-10-07] MEDS ORDERED: PHISODERM TOP SOLN 240ML BTL TOP PRN (02:45)
[2020-10-07] MEDS ORDERED: BUTORPHANOL TARTRATE 2 MG/1 ML VIAL IV PRN ×2 (02:45)
[2020-10-07] MEDS ORDERED: PROMETHAZINE HCL 25 MG/ML 1ML IM PRN (02:45)
[2020-10-07] MEDS ORDERED: TERBUTALINE SULFATE 1 MG/ML 1ML VIAL SC ONE (03:00)
[2020-10-07] MEDS ORDERED: LACT. RINGERS/OXYTOCIN 20UNITS 1,000 ML IV SCH (03:00)
[2020-10-07] MEDS ORDERED: OXYTOCIN 10UNIT/ML 1ML VIAL IM ONE (03:00)
[2020-10-07] MEDS ORDERED: LACT. RINGERS/OXYTOCIN 20UNITS 500 ML IV ONE ×2 (03:00→03:30)
[2020-10-07] MEDS ORDERED: PENICILLIN G POT 5MIL/D5 50ML 50 ML IV ONE (03:00)
[2020-10-07 03:42] LABS: Basophils # (auto) 0 10 ^3/uL (0-0.2); Basophils % (auto) 0.1 % (0.0-2.0); Eosinophils # (auto) 0 10 ^3/uL (0-0.8); Eosinophils % (auto) 0.2 % (0.0-7.0); Hematocrit 38.7 % (36.0-46.0); Hemoglobin 13.7 g/dL (12.2-16.2); Lymphocytes # (auto) 2.8 10 ^3/uL (0.4-5.4); Lymphocytes % (auto) 19.2 % (10.0-50.0); Mean Corpuscular Hemoglobin 28.8 pg (28.0-32.0); Mean Corpuscular Hgb Conc. 35.4 g/dL (32.0-36.0); Mean Corpuscular Volume 81.2 fL (80.0-100.0); Monocytes # (auto) 0.8 10 ^3/uL (0-1.3); Monocytes % (auto) 5.8 % (0.0-12.0); Neutrophils # (auto) 10.8 10 ^3/uL (1.6-8.6); Neutrophils % (auto) 74.7 % (37.0-80.0); Nucleated Red Blood Cells % 0.2 %; Red Blood Cells 4.76 10^6/uL (4.0-5.20); Red Cell Distribution Width 13.1 % (11.8-14.3); White Blood Cell 14.5 10^3/uL (4.4-10.8)
[2020-10-07 03:50] LABS: INR 0.93 (0.9-1.15); Partial Thromboplastin Time 25.6 sec (23.6-33.0); Urine Bacteria NONE SEEN /hpf (None Seen); Urine Blood 1+ /uL (Negative); Urine Mucus FEW (None Seen); Urine Specific Gravity 1.019 (1.001-1.035); Urine WBC 8 /hpf (0 - 5)
[2020-10-07 04:05] LABS: Albumin 2.4 g/dL (3.4-5.0); Calcium 8.7 mg/dL (8.5-10.1); Potassium 3.6 mmol/L (3.5-5.1)
[2020-10-07 04:07] LABS: Alcohol, Urine < 3.0 mg/dL (0-10); Amphetamine Screen, Urine NEGATIVE (NEGATIVE); Barbiturate Scree,Urine NEGATIVE (NEGATIVE); Benzodiazephine Screen, Urine NEGATIVE (NEGATIVE); Cannabinoid Screen, Urine NEGATIVE (NEGATIVE); Cocaine Screen, Urine NEGATIVE (NEGATIVE); Opiate Scree,Urine NEGATIVE (NEGATIVE); Phencyclidine Screen, Urine NEGATIVE (NEGATIVE)
[2020-10-07 04:08] LABS: BUN/Creatinine Ratio 21.6; Bilirubin, Total 0.3 mg/dL (0.2-1.0); Total Protein 7.1 g/dL (6.4-8.2); Uric Acid 4.6 mg/dL (2.6-6.0)
[2020-10-07] MEDS ORDERED: ACETAMINOPHEN 325 MG TAB PO PRN (05:15)
[2020-10-07] MEDS: IBUPROFEN 600 MG TAB PO PRN ×3 (05:28→20:25)
[2020-10-07] MEDS ORDERED: ACCU-CHEK COMFORT CURVE STRIP VI SCH (06:00)
[2020-10-07 07:00] VITALS: BP 134/74
[2020-10-07] MEDS ORDERED: PENICILLIN G POTASSIUM 2,500,000 UNITS in D5W 5% 50 ML IV SCH (07:00)
[2020-10-07 11:00] VITALS: BP 138/75
[2020-10-07 15:00] VITALS: BP 135/68
[2020-10-07] MEDS ORDERED: MEASLES, MUMPS & RUBELLA VAC(MMRII) 0.5ML SC ONE (17:45)
[2020-10-07 19:08] VITALS: BP 137/75
[2020-10-07 23:16] VITALS: BP 138/78
[2020-10-08 04:04] VITALS: BP 136/72
[2020-10-08 06:34] VITALS: BP 129/73
[2020-10-08 07:06] LABS: RPR Non Reactive (Non Reactive)
== END 2020-10-08 09:24 | disposition home or self-care (01) | DRG 560 ==
LOC: LDRP 02:03 → OBSVTOIN 02:48 → LDRP 02:49
PROVIDERS: ADMIT Obstetrics & Gynecology; ATTEND Obstetrics & Gynecology
PROC: 10E0XZZ Delivery of Products of Conception, External Approach (ICD-10-PCS; principal; 2020-10-07)
DX: O69.81X0 Labor and delivery complicated by cord around neck, without compression, not applicable or unspecified (principal); Z37.0 Single live birth; Z20.822 Contact with and (suspected) exposure to COVID-19; Z3A.37 37 weeks gestation of pregnancy
CPT/HCPCS: 36415; 59025; 59409; 71046; 80053; 80307; 81001; 82948; 82962; 84112; 84550; 85025; 85610; 85730; 86592; 86850; 86900; 86901; 87426; 93005; 94760; 96360; 96361; 96365; 96366; G0378; J2540; J2590; J7060

== ENCOUNTER 2021-05-17 13:43 | Emergency (ER) | payer MEDICAID ==
[~2021-05-17] VITALS: Ht 152.4 cm; Wt 93.0 kg
[2021-05-17 17:45] VITALS: BP 154/85
[2021-05-17] MEDS ORDERED: BENZ100C19 PO (17:53)
[2021-05-17] MEDS ORDERED: ACET-1158 PO (17:53)
[2021-05-17] MEDS ORDERED: PRED20TA2 PO (17:53)
[2021-05-17] MEDS ORDERED: AMOX-277 PO (17:53)
[2021-05-17] MEDS ORDERED: methylPREDNISolone SOD SUCC 125 MG/2 ML VL IM ONE (18:00)
[2021-05-17] MEDS ORDERED: cefTRIAXone SOD 1,000 MG VL IM ONE (18:00)
== END 2021-05-17 18:24 | disposition home or self-care (01) ==
LOC: ER 13:43
DX: J06.9 Acute upper respiratory infection, unspecified (principal); I10 Essential (primary) hypertension; E03.9 Hypothyroidism, unspecified; Z79.2 Long term (current) use of antibiotics; Z79.899 Other long term (current) drug therapy; Z20.822 Contact with and (suspected) exposure to COVID-19
CPT/HCPCS: 36415; 71046; 87426; 96372; 99284; J0696; J2930

== ENCOUNTER 2021-12-01 13:20 | Emergency (ER) | payer MEDICAID ==
[~2021-12-01] VITALS: Ht 162.6 cm; Wt 81.8 kg
[~2021-12-01 13:20] MED LIST changes: +ACET-1158 PO; +AMOX-277 PO; +BENZ100C19 PO; +PRED20TA2 PO
[2021-12-01] MEDS ORDERED: LORazepam 2MG/ML-1ML VIAL IV ONE (14:15)
[2021-12-01] MEDS ORDERED: SODIUM CHLORIDE 0.9% 1,000 ML IVB ONE (14:15)
[2021-12-01 14:46] LABS: Basophils # (auto) 0 10 ^3/uL (0-0.2); Basophils % (auto) 0.2 % (0.0-2.0); Eosinophils # (auto) 0 10 ^3/uL (0-0.8); Hematocrit 46.2 % (36.0-46.0); Hemoglobin 14.9 g/dL (12.2-16.2); Lymphocytes # (auto) 2.9 10 ^3/uL (0.4-5.4); Mean Corpuscular Hemoglobin 27.2 pg (28.0-32.0); Mean Corpuscular Hgb Conc. 32.3 g/dL (32.0-36.0); Mean Corpuscular Volume 84.2 fL (80.0-100.0); Monocytes % (auto) 6.3 % (0.0-12.0); Neutrophils # (auto) 11.5 10 ^3/uL (1.6-8.6); Neutrophils % (auto) 74.5 % (37.0-80.0); Red Blood Cells 5.49 10^6/uL (4.0-5.20); Red Cell Distribution Width 13.3 % (11.8-14.3); White Blood Cell 15.5 10^3/uL (4.4-10.8)
[2021-12-01] MEDS ORDERED: ACETAMINOPHEN 325 MG TAB PO ONE (15:30)
[2021-12-01 15:53] LABS: Alcohol, Urine < 3.0 mg/dL (0-10); Amphetamine Screen, Urine POSITIVE (NEGATIVE); Barbiturate Scree,Urine NEGATIVE (NEGATIVE); Benzodiazephine Screen, Urine NEGATIVE (NEGATIVE); Cannabinoid Screen, Urine POSITIVE (NEGATIVE); Cocaine Screen, Urine POSITIVE (NEGATIVE); Opiate Scree,Urine NEGATIVE (NEGATIVE); Phencyclidine Screen, Urine NEGATIVE (NEGATIVE)
[2021-12-01 16:05] LABS: Urine Bacteria FEW /hpf (None Seen); Urine Blood 1+ /uL (Negative); Urine Budding Yeast FEW /hpf (None Seen); Urine Specific Gravity 1.003 (1.001-1.035); Urine WBC 3 /hpf (0 - 5)
[2021-12-01 16:09] LABS: Potassium 3.2 mmol/L (3.5-5.1); Sodium 140 mmol/L (136-145)
[2021-12-01 16:10] LABS: Alanine Aminotransferase 22 U/L (13-56); Alkaline Phosphatase 81 U/L (45-117); Anion Gap 14 (5-15); Aspartate Aminotransferase 19 U/L (15-37); BUN/Creatinine Ratio 6.6; Bilirubin, Total 0.6 mg/dL (0.2-1.0); Blood Urea Nitrogen 5 mg/dL (7-18); Calcium 7.9 mg/dL (8.5-10.1); Carbon Dioxide 17 mmol/L (21-32); Chloride 109 mmol/L (98-107); GFR African American 113 mL/min; GFR Non-African American 93 mL/min; Glucose 95 mg/dL (74-106); Total Protein 7.4 g/dL (6.4-8.2)
[2021-12-01 16:11] LABS: Albumin 3.4 g/dL (3.4-5.0)
[2021-12-01] MEDS ORDERED: ONDA-144 PO (16:38)
[2021-12-01 19:10] VITALS: BP 154/92
== END 2021-12-01 19:20 | disposition home or self-care (01) ==
LOC: ER 13:20 → EDBD 13:20 → ER 19:19
DX: F10.239 Alcohol dependence with withdrawal, unspecified (principal); F15.10 Other stimulant abuse, uncomplicated; F12.10 Cannabis abuse, uncomplicated; F14.10 Cocaine abuse, uncomplicated; I10 Essential (primary) hypertension; E03.9 Hypothyroidism, unspecified; F17.210 Nicotine dependence, cigarettes, uncomplicated; Z79.2 Long term (current) use of antibiotics; Z79.899 Other long term (current) drug therapy; Y90.0 Blood alcohol level of less than 20 mg/100 ml
CPT/HCPCS: 36415; 80053; 80307; 80320; 81001; 85025; 96360; 99283; J7030

== ENCOUNTER 2022-06-19 18:39 | Inpatient (IN) | payer MEDICAID ==
[~2022-06-19] VITALS: Ht 160 cm; Wt 95.0 kg
[~2022-06-19 18:39] MED LIST changes: +ONDA-144 PO
[2022-06-19 19:05] LABS: Basophils # (auto) 0 10 ^3/uL (0-0.2); Basophils % (auto) 0.3 % (0.0-2.0); Eosinophils # (auto) 0.2 10 ^3/uL (0-0.8); Eosinophils % (auto) 1.6 % (0.0-7.0); Hematocrit 44.6 % (36.0-46.0); Hemoglobin 15.1 g/dL (12.2-16.2); Lymphocytes # (auto) 2.1 10 ^3/uL (0.4-5.4); Lymphocytes % (auto) 22.5 % (10.0-50.0); Mean Corpuscular Hgb Conc. 33.9 g/dL (32.0-36.0); Mean Corpuscular Volume 82.7 fL (80.0-100.0); Monocytes # (auto) 0.7 10 ^3/uL (0-1.3); Monocytes % (auto) 7.1 % (0.0-12.0); Neutrophils # (auto) 6.3 10 ^3/uL (1.6-8.6); Neutrophils % (auto) 68.5 % (37.0-80.0); Nucleated Red Blood Cells % 0.2 %; Red Cell Distribution Width 13.3 % (11.8-14.3); White Blood Cell 9.2 10^3/uL (4.4-10.8)
[2022-06-19 19:23] LABS: Albumin 3.8 g/dL (3.4-5.0); Calcium 8.5 mg/dL (8.5-10.1); Potassium 3.9 mmol/L (3.5-5.1)
[2022-06-19 19:27] LABS: BUN/Creatinine Ratio 12.3 (10.0-20.0); Bilirubin, Total 0.3 mg/dL (0.2-1.0); Total Protein 7.4 g/dL (6.4-8.2)
[2022-06-19] MEDS ORDERED: AZITHROMYCIN 500MG/ 250ML 250 ML IV ONE (19:45)
[2022-06-19] MEDS ORDERED: methylPREDNISolone SOD SUCC 125 MG/2 ML VL IV ONE (19:45)
[2022-06-20] VITALS (7 sets, daily range): BP systolic 106–161; BP diastolic 56–93
[2022-06-20] MEDS ORDERED: IPRATROPIUM BROM 0.5 MG/2.5ML INH SOL NEB PRN (00:45)
[2022-06-20] MEDS ORDERED: ALBUTEROL SULF 2.5 MG/0.5ML(0.5%) NEB SOLN NEB PRN (00:45)
[2022-06-20] MEDS: cefTRIAXone 1GM/50ML D5W 50 ML IV SCH ×2 (00:51→22:20)
[2022-06-20 02:15] LABS: Cholesterol 199 mg/dL (< 200); HDL Cholesterol 58 mg/dL (40-59); LDL Cholesterol 118 mg/dL (< 100); Triglycerides 188 mg/dL (< 150)
[2022-06-20] MEDS: ACETAMINOPHEN 325 MG TAB PO PRN ×3 (03:22→22:26)
[2022-06-20] MEDS ORDERED: HYDR12.56 PO (03:25)
[2022-06-20] MEDS ORDERED: ALBU2TAB4 PO (03:26)
[2022-06-20] MEDS ORDERED: QUET25TA37 PO (03:29)
[2022-06-20] MEDS ORDERED: INFLUENZA QUAD 2022-2023 0.5 ML SYRG IM ONE (06:00)
[2022-06-20] MEDS ORDERED: PNEUMOCOCCAL VACC POLYS 25 MCG/0.5 ML VIAL IM ONE (06:00)
[2022-06-20] MEDS: ALBUTEROL SULF 2.5 MG/0.5ML(0.5%) NEB SOLN NEB SCH ×3 (07:01→18:19)
[2022-06-20] MEDS: IPRATROPIUM BROM 0.5 MG/2.5ML INH SOL NEB SCH ×3 (07:01→18:19)
[2022-06-20 08:05] LABS: Urine Bacteria NONE SEEN /hpf (None Seen); Urine Blood 1+ /uL (Negative); Urine WBC 1 /hpf (0 - 5)
[2022-06-20 08:20] LABS: Alcohol, Urine < 3.0 mg/dL (0-10); Amphetamine Screen, Urine NEGATIVE (NEGATIVE); Barbiturate Scree,Urine NEGATIVE (NEGATIVE); Benzodiazephine Screen, Urine NEGATIVE (NEGATIVE)
[2022-06-20 08:28] LABS: Cannabinoid Screen, Urine POSITIVE (NEGATIVE); Cocaine Screen, Urine NEGATIVE (NEGATIVE); Opiate Scree,Urine NEGATIVE (NEGATIVE); Phencyclidine Screen, Urine NEGATIVE (NEGATIVE)
[2022-06-20 08:39] LABS: Free T4 (Free Thyroxine) 0.88 ng/dL (0.89-1.76)
[2022-06-20 08:40] LABS: Free T3 2.68 pg/mL (2.3-4.2)
[2022-06-20] MEDS ORDERED: PANTOPRAZOLE 40 MG/10 ML VIAL INJ IV SCH (10:00)
[2022-06-20] MEDS ORDERED: ENOXAPARIN SOD 40 MG/0.4 ML SYRINGE SC SCH (10:00)
[2022-06-20] MEDS: hydrALAZINE HCL 20 MG/ML VL IV PRN ×2 (10:18→19:04)
[2022-06-20] MEDS ORDERED: LISINOPRIL 20 MG TAB PO ONE (12:15)
[2022-06-20] MEDS ORDERED: methylPREDNISolone SOD SUCC 40 MG/ML VL IV ONE (12:15)
[2022-06-20] MEDS ORDERED: NICOTINE 14 MG/24HR TOPICAL PATCH TD ONE (12:15)
[2022-06-20] MEDS ORDERED: HCTZ 25 MG TAB PO ONE (12:30)
[2022-06-20] MEDS ORDERED: ZINC SULFATE 220mg CAP or TAB PO ONE (13:15)
[2022-06-20] MEDS ORDERED: ASCORBIC ACID 500 MG TAB PO ONE (13:15)
[2022-06-20 13:38] LABS: Alkaline Phosphatase 72 U/L (45-117); Anion Gap 9 (5-15); Aspartate Aminotransferase 25 U/L (15-37); BUN/Creatinine Ratio 15.5 (10.0-20.0); Blood Urea Nitrogen 9 mg/dL (7-18); Carbon Dioxide 18 mmol/L (21-32); Chloride 108 mmol/L (98-107); GFR African American 154 mL/min; GFR Non-African American 127 mL/min; Glucose 115 mg/dL (74-106); Potassium 4.2 mmol/L (3.5-5.1); Sodium 135 mmol/L (136-145)
[2022-06-20 13:39] LABS: Alanine Aminotransferase 22 U/L (13-56); Albumin 3.5 g/dL (3.4-5.0); Bilirubin, Total 0.3 mg/dL (0.2-1.0); Calcium 9.3 mg/dL (8.5-10.1); Total Protein 8.1 g/dL (6.4-8.2)
[2022-06-20 15:16] LABS: Basophils # (auto) 0 10 ^3/uL (0-0.2); Basophils % (auto) 0.1 % (0.0-2.0); Eosinophils # (auto) 0 10 ^3/uL (0-0.8); Hematocrit 41.8 % (36.0-46.0); Hemoglobin 14.4 g/dL (12.2-16.2); Lymphocytes % (auto) 22.6 % (10.0-50.0); Mean Corpuscular Hemoglobin 28.3 pg (28.0-32.0); Mean Corpuscular Hgb Conc. 34.5 g/dL (32.0-36.0); Mean Corpuscular Volume 81.9 fL (80.0-100.0); Monocytes # (auto) 0.6 10 ^3/uL (0-1.3); Monocytes % (auto) 7.4 % (0.0-12.0); Neutrophils # (auto) 6.1 10 ^3/uL (1.6-8.6); Neutrophils % (auto) 69.9 % (37.0-80.0); Nucleated Red Blood Cells % 0.2 %; Red Cell Distribution Width 12.8 % (11.8-14.3); White Blood Cell 8.7 10^3/uL (4.4-10.8)
[2022-06-20] MEDS ORDERED: AZITHROMYCIN 500MG/ 250ML 250 ML IV SCH (22:00)
[2022-06-20] MEDS: methylPREDNISolone SOD SUCC 40 MG/ML VL IV SCH (22:20)
[2022-06-21] VITALS (7 sets, daily range): BP systolic 114–154; BP diastolic 62–94
[2022-06-21] MEDS: IPRATROPIUM BROM 0.5 MG/2.5ML INH SOL NEB SCH ×4 (01:13→18:55)
[2022-06-21] MEDS: ALBUTEROL SULF 2.5 MG/0.5ML(0.5%) NEB SOLN NEB SCH ×4 (01:13→18:55)
[2022-06-21] MEDS: ACETAMINOPHEN 325 MG TAB PO PRN ×2 (10:24→20:45)
[2022-06-21] MEDS: ASCORBIC ACID 500 MG TAB PO SCH (10:24)
[2022-06-21] MEDS: LISINOPRIL 20 MG TAB PO SCH (10:25)
[2022-06-21] MEDS: HCTZ 25 MG TAB PO SCH (10:25)
[2022-06-21] MEDS: ZINC SULFATE 220mg CAP or TAB PO SCH (10:26)
[2022-06-21] MEDS: ENOXAPARIN SOD 40 MG/0.4 ML SYRINGE SC SCH (10:27)
[2022-06-21] MEDS: methylPREDNISolone SOD SUCC 40 MG/ML VL IV SCH (10:27)
[2022-06-21] MEDS: NICOTINE 14 MG/24HR TOPICAL PATCH TD SCH (10:28)
[2022-06-21] MEDS: cefTRIAXone 1GM/50ML D5W 50 ML IV SCH (20:44)
[2022-06-22] MEDS: ALBUTEROL SULF 2.5 MG/0.5ML(0.5%) NEB SOLN NEB SCH ×3 (00:27→12:22)
[2022-06-22] MEDS: IPRATROPIUM BROM 0.5 MG/2.5ML INH SOL NEB SCH ×3 (00:27→12:22)
[2022-06-22 05:00] VITALS: BP 137/87
[2022-06-22] MEDS: ENOXAPARIN SOD 40 MG/0.4 ML SYRINGE SC SCH (08:36)
[2022-06-22] MEDS: ACETAMINOPHEN 325 MG TAB PO PRN (08:36)
[2022-06-22] MEDS: LISINOPRIL 20 MG TAB PO SCH (08:37)
[2022-06-22] MEDS: ZINC SULFATE 220mg CAP or TAB PO SCH (08:37)
[2022-06-22] MEDS: ASCORBIC ACID 500 MG TAB PO SCH (08:37)
[2022-06-22] MEDS: NICOTINE 14 MG/24HR TOPICAL PATCH TD SCH (08:38)
[2022-06-22] MEDS: HCTZ 25 MG TAB PO SCH (08:38)
[2022-06-22 08:58] VITALS: BP 129/63
[2022-06-22] MEDS ORDERED: AZITHROMYCIN 250 MG TAB PO SCH (10:00)
[2022-06-22] MEDS ORDERED: predniSONE 20 MG TAB PO SCH (10:00)
[2022-06-22] MEDS ORDERED: ASCO500T11 PO (11:58)
[2022-06-22] MEDS ORDERED: ALBUAER3 IN (11:58)
[2022-06-22] MEDS ORDERED: HYDR25TA5 PO (11:58)
[2022-06-22] MEDS ORDERED: PRED20TA2 PO (11:58)
[2022-06-22] MEDS ORDERED: AZIT250T9 PO (11:58)
[2022-06-22] MEDS ORDERED: LISI20TA28 PO (11:58)
[2022-06-22 12:30] VITALS: BP 144/70
== END 2022-06-22 15:43 | disposition home or self-care (01) | DRG 137 ==
LOC: ER 18:39 → OVERFLOW 23:42 → WEST WING 06-20 02:09
PROVIDERS: ADMIT Registered Nurse; ATTEND Internal Medicine
DX: U07.1 COVID-19 (principal); J96.01 Acute respiratory failure with hypoxia; J12.82 Pneumonia due to coronavirus disease 2019; J45.901 Unspecified asthma with (acute) exacerbation; I10 Essential (primary) hypertension; E89.0 Postprocedural hypothyroidism; E66.9 Obesity, unspecified; Z72.0 Tobacco use; Z79.899 Other long term (current) drug therapy; Z68.37 Body mass index [BMI] 37.0-37.9, adult
CPT/HCPCS: 36415; 71045; 71046; 80053; 80061; 80307; 81001; 81025; 83036; 83605; 83880; 84439; 84443; 84481; 84484; 85025; 87040; 87070; 87205; 87426; 90686; 93005; 94640; 96365; 96375; C9113; G0378; J0696

== ENCOUNTER 2022-08-18 05:16 | Emergency (ER) | payer MEDICAID ==
[~2022-08-18] VITALS: Ht 162.6 cm; Wt 100.0 kg
[~2022-08-18 05:16] MED LIST changes: -ACET-1158 PO; +ALBU2TAB11 PO; +ALBUAER3 IN; -AMOX-277 PO; +ASCO500T11 PO; +AZIT-43 PO; -BENZ100C19 PO; +HYDR12.59 PO; +HYDR25TA5 PO; +LISI20TA56 PO; -ONDA-144 PO; -PREN-96 PO; +QUET25TA37 PO
[2022-08-18] MEDS ORDERED: SODIUM CHLORIDE 0.9% 1,000 ML IV ONE (05:45)
[2022-08-18] MEDS ORDERED: HYDROmorphone HCL 2 MG/ML VL/or syr IV ONE ×2 (05:45→07:30)
[2022-08-18] MEDS ORDERED: ONDANSETRON HCL 4 MG/2 ML VIAL IV ONE ×2 (05:45→07:30)
[2022-08-18] MEDS ORDERED: IOHEXOL 350 MG/ML 100ML IJ ONE (06:04)
[2022-08-18 06:29] LABS: Basophils # (auto) 0 10 ^3/uL (0-0.2); Basophils % (auto) 0.2 % (0.0-2.0); Eosinophils # (auto) 0 10 ^3/uL (0-0.8); Hematocrit 41.7 % (36.0-46.0); Hemoglobin 14.1 g/dL (12.2-16.2); Lymphocytes # (auto) 1.8 10 ^3/uL (0.4-5.4); Lymphocytes % (auto) 12.8 % (10.0-50.0); Mean Corpuscular Hemoglobin 28.1 pg (28.0-32.0); Mean Corpuscular Hgb Conc. 33.7 g/dL (32.0-36.0); Mean Corpuscular Volume 83.2 fL (80.0-100.0); Monocytes # (auto) 0.6 10 ^3/uL (0-1.3); Neutrophils # (auto) 11.7 10 ^3/uL (1.6-8.6); Nucleated Red Blood Cells % 0.1 %; Red Blood Cells 5.01 10^6/uL (4.0-5.20); Red Cell Distribution Width 13.4 % (11.8-14.3); White Blood Cell 14.1 10^3/uL (4.4-10.8)
[2022-08-18 06:39] LABS: INR 1.04 (0.9-1.15); Partial Thromboplastin Time 27.1 SEC (24.5-34.5)
[2022-08-18 06:49] LABS: Albumin 3.2 g/dL (3.4-5.0); Potassium 3.7 mmol/L (3.5-5.1)
[2022-08-18 06:52] LABS: BUN/Creatinine Ratio 10.8 (10.0-20.0)
[2022-08-18 06:53] LABS: Bilirubin, Total 0.2 mg/dL (0.2-1.0); Total Protein 7.3 g/dL (6.4-8.2)
[2022-08-18] MEDS ORDERED: PERCOT PO (07:15)
[2022-08-18] MEDS ORDERED: hydrALAZINE HCL 20 MG/ML VL IV ONE (07:30)
[2022-08-18 08:47] LABS: Amphetamine Screen, Urine NEGATIVE (NEGATIVE); Barbiturate Scree,Urine NEGATIVE (NEGATIVE); Benzodiazephine Screen, Urine NEGATIVE (NEGATIVE); Cannabinoid Screen, Urine POSITIVE (NEGATIVE)
[2022-08-18 08:53] LABS: Cocaine Screen, Urine NEGATIVE (NEGATIVE); Opiate Scree,Urine NEGATIVE (NEGATIVE); Phencyclidine Screen, Urine NEGATIVE (NEGATIVE)
[2022-08-18 10:01] VITALS: BP 154/70
[2022-08-18] MEDS ORDERED: FOLIC ACID 1 MG, MULTIPLE VITAMIN 10 ML, MAGNESIUM SULF SDV 50% 8 MEQ, THIAMINE INJ 100... INJ SCH ×5 (12:00)
== END 2022-08-18 11:50 | disposition home or self-care (01) ==
LOC: EDBD 05:16 → ER 05:16
DX: S39.012A Strain of muscle, fascia and tendon of lower back, initial encounter (principal); S86.919A Strain of unspecified muscle(s) and tendon(s) at lower leg level, unspecified leg, initial encounter; R41.82 Altered mental status, unspecified; J45.909 Unspecified asthma, uncomplicated; I10 Essential (primary) hypertension; F12.10 Cannabis abuse, uncomplicated; F15.10 Other stimulant abuse, uncomplicated; F14.10 Cocaine abuse, uncomplicated; Z87.891 Personal history of nicotine dependence; Z79.899 Other long term (current) drug therapy; Z79.01 Long term (current) use of anticoagulants; V43.52XA Car driver injured in collision with other type car in traffic accident, initial encounter; Y93.89 Activity, other specified; Y92.89 Other specified places as the place of occurrence of the external cause; Y99.8 Other external cause status
CPT/HCPCS: 36415; 70450; 70486; 71260; 72125; 74177; 80053; 80307; 80320; 82962; 85025; 85610; 85730; 86850; 86900; 86901; 96361; 96365; 96375; 96376; 99285; J0360; J1170; J2405; J3411; J3475; J7030; Q9967

== ENCOUNTER 2022-09-01 09:02 | Emergency (ER) | payer MEDICAID ==
[~2022-09-01] VITALS: Ht 157.5 cm; Wt 93.8 kg
[~2022-09-01 09:02] MED LIST changes: +PERCOT PO
[2022-09-01 09:42] VITALS: BP 136/94
[2022-09-01] MEDS ORDERED: cefTRIAXone SOD 1,000 MG VL IM ONE (10:15)
[2022-09-01] MEDS ORDERED: IPRATROPIUM BROM 0.5 MG/2.5ML INH SOL NEB ONE (10:15)
[2022-09-01] MEDS ORDERED: ALBUTEROL SULF 2.5 MG/0.5ML(0.5%) NEB SOLN NEB ONE (10:15)
[2022-09-01] MEDS ORDERED: AUG875T PO (10:26)
[2022-09-01] MEDS ORDERED: ALBU108A5 IN (10:26)
[2022-09-01] MEDS ORDERED: PRED20TA2 PO (10:26)
== END 2022-09-01 10:54 | disposition home or self-care (01) ==
LOC: ER 09:02
DX: J20.9 Acute bronchitis, unspecified (principal); J45.901 Unspecified asthma with (acute) exacerbation; H66.91 Otitis media, unspecified, right ear; I10 Essential (primary) hypertension; F12.10 Cannabis abuse, uncomplicated; F15.10 Other stimulant abuse, uncomplicated; F14.10 Cocaine abuse, uncomplicated; Z87.891 Personal history of nicotine dependence
CPT/HCPCS: 71046; 94640; 96372; 99283; J0696; J7644

== ENCOUNTER 2022-10-31 10:26 | Emergency (ER) | payer MEDICAID ==
[~2022-10-31] VITALS: Ht 157.5 cm; Wt 98.9 kg
[~2022-10-31 10:26] MED LIST changes: +ALBU108A5 IN; +AUG875T PO
[2022-10-31] MEDS ORDERED: cloNIDine HCL 0.1 MG TAB PO ONE (11:00)
[2022-10-31 11:18] LABS: Urine Bacteria FEW /hpf (None Seen); Urine Blood 1+ /uL (Negative); Urine Clarity Clear (Clear); Urine Color Yellow (Yellow); Urine Mucus FEW (None Seen); Urine Protein, UAD Negative (Negative); Urine Urobilinogen Normal (Negative); Urine WBC 1 /hpf (0 - 5); Urine pH 6.5 (5.0-8.0)
[2022-10-31 11:21] LABS: Basophils # (auto) 0 10 ^3/uL (0-0.2); Basophils % (auto) 0.5 % (0.0-2.0); Eosinophils # (auto) 0 10 ^3/uL (0-0.8); Eosinophils % (auto) 0.8 % (0.0-7.0); Hematocrit 41.3 % (36.0-46.0); Lymphocytes # (auto) 1.4 10 ^3/uL (0.4-5.4); Lymphocytes % (auto) 22.7 % (10.0-50.0); Mean Corpuscular Hemoglobin 27.9 pg (28.0-32.0); Mean Corpuscular Hgb Conc. 33.8 g/dL (32.0-36.0); Mean Corpuscular Volume 82.5 fL (80.0-100.0); Monocytes # (auto) 0.6 10 ^3/uL (0-1.3); Monocytes % (auto) 10.4 % (0.0-12.0); Neutrophils % (auto) 65.6 % (37.0-80.0); Nucleated Red Blood Cells % 0.2 %; Red Blood Cells 5.01 10^6/uL (4.0-5.20); White Blood Cell 6.1 10^3/uL (4.4-10.8)
[2022-10-31 11:51] LABS: Amphetamine Screen, Urine Neg (NEGATIVE); Benzodiazephine Screen, Urine Neg (NEGATIVE)
[2022-10-31 11:52] LABS: Barbiturate Scree,Urine Neg (NEGATIVE); Cannabinoid Screen, Urine Pos (NEGATIVE); Cocaine Screen, Urine Neg (NEGATIVE); Opiate Scree,Urine Neg (NEGATIVE); Phencyclidine Screen, Urine Neg (NEGATIVE)
[2022-10-31 11:52] LABS: Alanine Aminotransferase 17 U/L (7-40); Alkaline Phosphatase 73 U/L (46-116); Anion Gap 5.5 (5-15); Aspartate Aminotransferase < 8 U/L (13-40); BUN/Creatinine Ratio 10.8 (10.0-20.0); Blood Alcohol < 3.0 mg/dL (<10); Blood Urea Nitrogen 7 mg/dL (9-23); Calcium 8.9 mg/dL (8.5-10.1); Carbon Dioxide 26.5 mmol/L (20-30); Chloride 106 mmol/L (98-107); Glucose 85 mg/dL (74-106); Magnesium 1.8 mg/dL (1.6-2.6); Potassium 3.9 mmol/L (3.5-5.1); Sodium 138 mmol/L (136-145)
[2022-10-31 11:53] LABS: Albumin 4.3 g/dL (3.2-4.8); Bilirubin, Total 0.6 mg/dL (0.2-1.0)
[2022-10-31] MEDS ORDERED: NITR-87 PO (13:21)
[2022-10-31] MEDS ORDERED: HYDR25TA4 PO (13:21)
[2022-10-31 14:07] VITALS: BP 141/71; PULSE 97; RESP 17; TEMP 98.2; O2SAT 99
== END 2022-10-31 14:08 | disposition home or self-care (01) ==
LOC: ER 10:26
DX: I16.0 Hypertensive urgency (principal); N39.0 Urinary tract infection, site not specified; J45.909 Unspecified asthma, uncomplicated; F17.210 Nicotine dependence, cigarettes, uncomplicated; F15.90 Other stimulant use, unspecified, uncomplicated; Z90.89 Acquired absence of other organs; Z79.1 Long term (current) use of non-steroidal anti-inflammatories (NSAID); Z79.899 Other long term (current) drug therapy
CPT/HCPCS: 36415; 70450; 71046; 80053; 80307; 80320; 81001; 82962; 83735; 84484; 85025; 93005

== ENCOUNTER 2023-03-10 14:56 | Emergency (ER) | payer MEDICAID ==
[~2023-03-10] VITALS: Ht 157.5 cm; Wt 91.0 kg
[~2023-03-10 14:56] MED LIST changes: +HYDR25TA4 PO; +NITR-87 PO
[2023-03-10 15:10] VITALS: BP 141/86; RESP 18; TEMP 97.5; O2SAT 98
[2023-03-10 15:23] LABS: Basophils # (auto) 0.1 10 ^3/uL (0-0.2); Basophils % (auto) 0.4 % (0.0-2.0); Eosinophils # (auto) 0.4 10 ^3/uL (0-0.8); Eosinophils % (auto) 3.5 % (0.0-7.0); Hematocrit 44.3 % (36.0-46.0); Hemoglobin 14.8 g/dL (12.2-16.2); Lymphocytes # (auto) 2.6 10 ^3/uL (0.4-5.4); Lymphocytes % (auto) 20.6 % (10.0-50.0); Mean Corpuscular Hemoglobin 27.4 pg (28.0-32.0); Mean Corpuscular Hgb Conc. 33.5 g/dL (32.0-36.0); Mean Corpuscular Volume 81.9 fL (80.0-100.0); Monocytes # (auto) 0.8 10 ^3/uL (0-1.3); Monocytes % (auto) 6.8 % (0.0-12.0); Neutrophils # (auto) 8.5 10 ^3/uL (1.6-8.6); Neutrophils % (auto) 68.7 % (37.0-80.0); Nucleated Red Blood Cells % 1.1 %; Red Blood Cells 5.41 10^6/uL (4.0-5.20); Red Cell Distribution Width 13.5 % (11.8-14.3); White Blood Cell 12.4 10^3/uL (4.4-10.8)
[2023-03-10 15:40] LABS: INR 0.93 (0.9-1.15); Partial Thromboplastin Time 27.1 SEC (24.5-34.5); Prothrombin Time 9.8 sec (9.3-11.8)
[2023-03-10 15:54] LABS: Alanine Aminotransferase 19 U/L (7-40); Albumin 4.5 g/dL (3.2-4.8); Alkaline Phosphatase 82 U/L (46-116); Anion Gap 10 (5-15); Aspartate Aminotransferase 16 U/L (13-40); BUN/Creatinine Ratio 20.5 (10.0-20.0); Bilirubin, Total 0.5 mg/dL (0.2-1.0); Blood Urea Nitrogen 16 mg/dL (9-23); Calcium 9.8 mg/dL (8.5-10.1); Carbon Dioxide 26 mmol/L (20-30); Chloride 103 mmol/L (98-107); Glucose 95 mg/dL (74-106); Potassium 3.7 mmol/L (3.5-5.1); Sodium 139 mmol/L (136-145); Total Protein 7.3 g/dL (5.7-8.2)
[2023-03-10 17:57] VITALS: PULSE 94
== END 2023-03-10 18:53 | disposition home or self-care (01) ==
LOC: ER 14:56
DX: R07.89 Other chest pain (principal); J45.909 Unspecified asthma, uncomplicated; I10 Essential (primary) hypertension; F12.10 Cannabis abuse, uncomplicated; F15.10 Other stimulant abuse, uncomplicated; F14.10 Cocaine abuse, uncomplicated; D72.829 Elevated white blood cell count, unspecified; Z87.891 Personal history of nicotine dependence
CPT/HCPCS: 36415; 71045; 76705; 80053; 83690; 84484; 85025; 85379; 85610; 85730; 93005

== ENCOUNTER 2023-07-20 21:06 | Emergency (ER) | payer MEDICAID ==
[~2023-07-20] VITALS: Ht 160 cm; Wt 105.3 kg
[2023-07-20 22:58] VITALS: BP 171/105; PULSE 87; RESP 16; TEMP 98.1; O2SAT 98
[2023-07-20 23:10] LABS: Urine Bacteria None Seen /hpf (None Seen)
[2023-07-20] MEDS: KETOROLAC TROMETH 60MG/2ML VIAL IM ONE (23:12)
[2023-07-20 23:15] LABS: Urine Blood 1+ /uL (Negative); Urine Clarity Clear (Clear); Urine Color Light-Yellow (Yellow); Urine Mucus FEW (None Seen); Urine Protein, UAD TRACE (Negative); Urine Specific Gravity 1.031 (1.001-1.035); Urine Urobilinogen Normal (Negative); Urine WBC 7 /hpf (0 - 5)
[2023-07-20 23:20] LABS: Basophils # (auto) 0.1 10 ^3/uL (0-0.2); Basophils % (auto) 0.5 % (0.0-2.0); Eosinophils # (auto) 0.2 10 ^3/uL (0-0.8); Eosinophils % (auto) 1.7 % (0.0-7.0); Hematocrit 40.6 % (36.0-46.0); Hemoglobin 13.6 g/dL (12.2-16.2); Lymphocytes # (auto) 4.2 10 ^3/uL (0.4-5.4); Lymphocytes % (auto) 29.7 % (10.0-50.0); Mean Corpuscular Hemoglobin 27.8 pg (28.0-32.0); Mean Corpuscular Hgb Conc. 33.6 g/dL (32.0-36.0); Mean Corpuscular Volume 82.8 fL (80.0-100.0); Monocytes # (auto) 0.8 10 ^3/uL (0-1.3); Monocytes % (auto) 5.8 % (0.0-12.0); Neutrophils # (auto) 8.8 10 ^3/uL (1.6-8.6); Neutrophils % (auto) 62.3 % (37.0-80.0); Nucleated Red Blood Cells % 0.2 %; White Blood Cell 14.2 10^3/uL (4.4-10.8)
[2023-07-20 23:40] LABS: Alanine Aminotransferase 28 U/L (7-40); Albumin 4.2 g/dL (3.2-4.8); Alkaline Phosphatase 74 U/L (46-116); Anion Gap 6 (5-15); Aspartate Aminotransferase 15 U/L (13-40); BUN/Creatinine Ratio 22.1 (10.0-20.0); Bilirubin, Total 0.2 mg/dL (0.2-1.0); Blood Urea Nitrogen 15 mg/dL (9-23); Calcium 9.9 mg/dL (8.7-10.4); Carbon Dioxide 30 mmol/L (20-30); Chloride 105 mmol/L (98-107); Glucose 109 mg/dL (74-106); Potassium 3.3 mmol/L (3.5-5.1); Sodium 141 mmol/L (136-145); Total Protein 7.2 g/dL (5.7-8.2)
[2023-07-20] MEDS ORDERED: NITR-52 PO (23:43)
[2023-07-21 00:09] LABS: COVID19 ANTIGEN SOFIA FIA NEGATIVE (NEGATIVE); Rapid Influenza A Negative (Negative); Rapid Influenza B Negative (Negative)
[2023-07-21] MEDS: POTASSIUM CHL 20 Meq TABLET PO ONE (00:15)
[2023-07-21] MEDS ORDERED: PRED20TA2 PO (00:19)
[2023-07-21] MEDS ORDERED: ALBU108A5 IN (00:19)
== END 2023-07-21 00:21 | disposition home or self-care (01) ==
LOC: ER 21:06
DX: J06.9 Acute upper respiratory infection, unspecified (principal); N39.0 Urinary tract infection, site not specified; J45.909 Unspecified asthma, uncomplicated; I10 Essential (primary) hypertension; E07.9 Disorder of thyroid, unspecified; F15.10 Other stimulant abuse, uncomplicated; F12.10 Cannabis abuse, uncomplicated; Z20.822 Contact with and (suspected) exposure to COVID-19; Z79.899 Other long term (current) drug therapy; Z87.891 Personal history of nicotine dependence
CPT/HCPCS: 36415; 71045; 74176; 80053; 81001; 85025; 87426; 87804; 96372; 99285; J1885

== ENCOUNTER 2023-11-09 20:34 | Inpatient (IN) | payer MEDICAID ==
[~2023-11-09] VITALS: Ht 160 cm; Wt 99.4 kg
[~2023-11-09 20:34] MED LIST changes: +NITR-52 PO
[2023-11-09 21:21] LABS: Basophils # (auto) 0.1 10 ^3/uL (0-0.2); Basophils % (auto) 0.5 % (0.0-2.0); Eosinophils # (auto) 0.1 10 ^3/uL (0-0.8); Eosinophils % (auto) 0.5 % (0.0-7.0); Hematocrit 45.4 % (36.0-46.0); Hemoglobin 15.9 g/dL (12.2-16.2); Lymphocytes # (auto) 4.3 10 ^3/uL (0.4-5.4); Lymphocytes % (auto) 31.5 % (10.0-50.0); Mean Corpuscular Hemoglobin 28.8 pg (28.0-32.0); Mean Corpuscular Hgb Conc. 34.9 g/dL (32.0-36.0); Mean Corpuscular Volume 82.6 fL (80.0-100.0); Monocytes # (auto) 0.8 10 ^3/uL (0-1.3); Monocytes % (auto) 5.5 % (0.0-12.0); Neutrophils # (auto) 8.5 10 ^3/uL (1.6-8.6); Nucleated Red Blood Cells % 0.1 %; Platelet Count (auto) 328 10^3/uL (140-450); Red Cell Distribution Width 12.6 % (11.8-14.3); White Blood Cell 13.8 10^3/uL (4.4-10.8)
[2023-11-09 21:40] LABS: Alanine Aminotransferase 42 U/L (7-40); Albumin 4.9 g/dL (3.2-4.8); Alkaline Phosphatase 84 U/L (46-116); Anion Gap 8 (5-15); Aspartate Aminotransferase 21 U/L (13-40); BUN/Creatinine Ratio 14.3 (10.0-20.0); Bilirubin, Total 0.4 mg/dL (0.2-1.0); Blood Urea Nitrogen 12 mg/dL (9-23); Calcium 10.9 mg/dL (8.7-10.4); Carbon Dioxide 31 mmol/L (20-30); Chloride 99 mmol/L (98-107); Glucose 95 mg/dL (74-106); Potassium 3.7 mmol/L (3.5-5.1); Sodium 138 mmol/L (136-145); Total Protein 8.1 g/dL (5.7-8.2)
[2023-11-09 23:42] LABS: Urine Bacteria None Seen /hpf (None Seen)
[2023-11-10 00:05] LABS: Urine Blood 1+ /uL (Negative); Urine Clarity Turbid (Clear); Urine Color Yellow (Yellow); Urine Hyaline Cast FEW /lpf (0 - 2); Urine Mucus FEW (None Seen); Urine Protein, UAD TRACE (Negative); Urine Specific Gravity 1.023 (1.001-1.035); Urine Urobilinogen Normal (Negative); Urine WBC 16 /hpf (0 - 5); Urine pH 5.5 (5.0-9.0)
[2023-11-10 00:07] LABS: Amphetamine Screen, Urine Neg (NEGATIVE); Barbiturate Scree,Urine Neg (NEGATIVE); Benzodiazephine Screen, Urine Neg (NEGATIVE); Cannabinoid Screen, Urine Pos (NEGATIVE); Cocaine Screen, Urine Neg (NEGATIVE); Opiate Scree,Urine Neg (NEGATIVE); Phencyclidine Screen, Urine Neg (NEGATIVE)
[2023-11-10 04:55] VITALS: PULSE 100; RESP 16; O2SAT 99
[2023-11-10] MEDS: ONDANSETRON HCL 4 MG/2 ML VIAL IV ONE (08:29)
[2023-11-10] MEDS: MORPHINE SULFATE INJ 2 MG/ml SYRG IV ONE (08:30)
[2023-11-10 11:38] LABS: Basophils # (auto) 0.1 10 ^3/uL (0-0.2); Basophils % (auto) 0.5 % (0.0-2.0); Eosinophils # (auto) 0.1 10 ^3/uL (0-0.8); Eosinophils % (auto) 0.6 % (0.0-7.0); Hematocrit 45.1 % (36.0-46.0); Hemoglobin 15.7 g/dL (12.2-16.2); Lymphocytes # (auto) 2.8 10 ^3/uL (0.4-5.4); Lymphocytes % (auto) 22.8 % (10.0-50.0); Mean Corpuscular Hgb Conc. 34.8 g/dL (32.0-36.0); Mean Corpuscular Volume 83.4 fL (80.0-100.0); Monocytes # (auto) 0.6 10 ^3/uL (0-1.3); Monocytes % (auto) 5.3 % (0.0-12.0); Neutrophils # (auto) 8.7 10 ^3/uL (1.6-8.6); Neutrophils % (auto) 70.8 % (37.0-80.0); Platelet Count (auto) 290 10^3/uL (140-450); Red Blood Cells 5.41 10^6/uL (4.0-5.20); Red Cell Distribution Width 12.7 % (11.8-14.3); White Blood Cell 12.3 10^3/uL (4.4-10.8)
[2023-11-10 12:06] LABS: Alanine Aminotransferase 44 U/L (7-40); Albumin 4.7 g/dL (3.2-4.8); Alkaline Phosphatase 81 U/L (46-116); Anion Gap 8 (5-15); Aspartate Aminotransferase 24 U/L (13-40); BUN/Creatinine Ratio 17.1 (10.0-20.0); Bilirubin, Total 0.6 mg/dL (0.2-1.0); Blood Urea Nitrogen 13 mg/dL (9-23); Carbon Dioxide 30 mmol/L (20-30); Chloride 100 mmol/L (98-107); Glucose 107 mg/dL (74-106); Potassium 3.5 mmol/L (3.5-5.1); Sodium 138 mmol/L (136-145); Total Protein 7.8 g/dL (5.7-8.2)
[2023-11-10] MEDS: DOXYCYCLINE 100MG/250ML 250 ML IV SCH (12:59)
[2023-11-10] MEDS: cefTRIAXone 1GM/50ML D5W 50 ML IV SCH (13:02)
[2023-11-10 13:14] LABS: Free T3 3.53 pg/mL (2.3-4.2)
[2023-11-10 13:15] LABS: Free T4 (Free Thyroxine) 1.33 ng/dL (0.89-1.76)
[2023-11-10] MEDS: ONDANSETRON HCL 4 MG/2 ML VIAL IV PRN (13:21)
[2023-11-10] MEDS: hydroCHLOROthiazide 25 MG TAB PO SCH (14:14)
[2023-11-10] MEDS: LISINOPRIL 5 MG TAB PO SCH (14:15)
[2023-11-10 14:54] VITALS: BP 153/95; PULSE 97; RESP 18; TEMP 97.7; O2SAT 97
[2023-11-10 17:00] VITALS: BP 158/96; PULSE 89; RESP 18; TEMP 98.2; O2SAT 99
[2023-11-10] MEDS: ACETAMINOPHEN 325 MG TAB PO PRN (17:25)
[2023-11-10 18:00] VITALS: BP 136/88; PULSE 80
[2023-11-10] MEDS: hydrALAZINE HCL 20 MG/ML VL IV PRN (19:41)
[2023-11-10 20:00] VITALS: PULSE 82; RESP 18; O2SAT 91
[2023-11-10 21:00] VITALS: BP 121/64; PULSE 76; RESP 20; TEMP 97.6; O2SAT 98
[2023-11-11] VITALS (8 sets, daily range): BP systolic 118–159; BP diastolic 58–99; PULSE 86–107; RESP 16–21; TEMP 97.3–98.3; O2SAT 96–100
[2023-11-11 07:21] LABS: Anion Gap 7 (5-15); Carbon Dioxide 30 mmol/L (20-30); Chloride 100 mmol/L (98-107); Potassium 4.3 mmol/L (3.5-5.1); Sodium 137 mmol/L (136-145)
[2023-11-11 07:26] LABS: BUN/Creatinine Ratio 9.8 (10.0-20.0); Blood Urea Nitrogen 8 mg/dL (9-23); Glucose 130 mg/dL (74-106)
[2023-11-11 07:28] LABS: Basophils # (auto) 0 10 ^3/uL (0-0.2); Basophils % (auto) 0.2 % (0.0-2.0); Eosinophils # (auto) 0.1 10 ^3/uL (0-0.8); Eosinophils % (auto) 1.1 % (0.0-7.0); Hematocrit 43.1 % (36.0-46.0); Hemoglobin 15.3 g/dL (12.2-16.2); Lymphocytes % (auto) 30.3 % (10.0-50.0); Mean Corpuscular Hemoglobin 29.3 pg (28.0-32.0); Mean Corpuscular Hgb Conc. 35.5 g/dL (32.0-36.0); Mean Corpuscular Volume 82.4 fL (80.0-100.0); Monocytes # (auto) 0.6 10 ^3/uL (0-1.3); Monocytes % (auto) 5.8 % (0.0-12.0); Neutrophils # (auto) 6.2 10 ^3/uL (1.6-8.6); Neutrophils % (auto) 62.6 % (37.0-80.0); Platelet Count (auto) 272 10^3/uL (140-450); Red Blood Cells 5.23 10^6/uL (4.0-5.20); Red Cell Distribution Width 12.8 % (11.8-14.3); White Blood Cell 9.9 10^3/uL (4.4-10.8)
[2023-11-11] MEDS ORDERED: LISINOPRIL 5 MG TAB PO SCH (10:00)
[2023-11-11] MEDS ORDERED: hydroCHLOROthiazide 25 MG TAB PO SCH (10:00)
[2023-11-11] MEDS: PANTOPRAZOLE 40 MG/10 ML VIAL INJ IV SCH (10:44)
[2023-11-11] MEDS: DOXYCYCLINE 100 MG TAB/CAP PO SCH (10:45)
[2023-11-11] MEDS: SODIUM CHLORIDE 0.9% 1,000 ML IV SCH (17:10)
[2023-11-11] MEDS: MORPHINE SULFATE INJ 2 MG/ml SYRG IV PRN (17:10)
[2023-11-11] MEDS: MELATONIN 5 MG TAB PO ONE (23:16)
[2023-11-12 01:00] VITALS: BP 121/67; PULSE 82; RESP 19; TEMP 98.3; O2SAT 97
[2023-11-12 05:00] VITALS: BP 143/71; PULSE 84; RESP 17; TEMP 97.7; O2SAT 96
[2023-11-12 07:58] VITALS: PULSE 96; RESP 21; O2SAT 97
[2023-11-12 09:00] VITALS: BP 112/78; PULSE 70; RESP 20; TEMP 98.4; O2SAT 92
[2023-11-12 11:06] LABS: Chlamydia Trachomatis, NAA Negative (Negative); Neisseria gonorrhoeae, NAA Negative (Negative)
[2023-11-12] MEDS ORDERED: THIA100T13 PO (11:50)
[2023-11-12] MEDS ORDERED: FOLI-119 PO (11:50)
[2023-11-12] MEDS ORDERED: ZOFR4T PO (11:50)
[2023-11-12] MEDS ORDERED: DOXY1CAP57 PO (11:50)
[2023-11-12 12:02] VITALS: BP 112/78; TEMP 36.9
== END 2023-11-12 13:50 | disposition home or self-care (01) | DRG 720 ==
LOC: ER 20:34 → OVERFLOW 11-10 11:22 → TELE-EAST 11-10 14:46 → EAST 11-11 00:52
PROVIDERS: ADMIT Registered Nurse General Practice; ATTEND Registered Nurse General Practice
DX: A41.9 Sepsis, unspecified organism (principal); K76.0 Fatty (change of) liver, not elsewhere classified; A74.9 Chlamydial infection, unspecified; E03.9 Hypothyroidism, unspecified; E11.9 Type 2 diabetes mellitus without complications; N30.01 Acute cystitis with hematuria; F17.210 Nicotine dependence, cigarettes, uncomplicated; I16.0 Hypertensive urgency; J45.909 Unspecified asthma, uncomplicated; Z82.49 Family history of ischemic heart disease and other diseases of the circulatory system; Z82.5 Family history of asthma and other chronic lower respiratory diseases; Z83.3 Family history of diabetes mellitus; Z79.4 Long term (current) use of insulin
CPT/HCPCS: 36415; 71045; 74176; 76705; 76856; 80048; 80053; 80307; 81001; 81025; 83615; 83690; 84439; 84443; 84481; 85025; 93005; G0378; J2405; J2470; J3490

== ENCOUNTER 2024-02-27 20:30 | Emergency (ER) | payer MEDICAID ==
[~2024-02-27] VITALS: Ht 157.5 cm; Wt 103.1 kg
[~2024-02-27 20:30] MED LIST changes: +DOXY1CAP57 PO; +FOLI-119 PO; +THIA100T13 PO; +ZOFR4T PO
[2024-02-27 22:16] LABS: COVID19 ANTIGEN SOFIA FIA NEGATIVE (NEGATIVE)
[2024-02-27 22:17] LABS: Rapid Influenza A Negative (Negative); Rapid Influenza B Negative (Negative)
[2024-02-27] MEDS: ACETAMINOPHEN 325 MG TAB PO ONE (23:57)
[2024-02-28] MEDS ORDERED: AMOX875T4 PO (00:01)
[2024-02-28] MEDS ORDERED: ACET500T58 PO (00:01)
[2024-02-28] MEDS ORDERED: PRED20TA2 PO (00:01)
[2024-02-28] MEDS ORDERED: ALBUAER3 IN (00:01)
--- NOTE | 2024-02-28 00:01 | ED.PDOC ---
SOB-HPI HPI Comments 33-YEAR-OLD FEMALE PRESENTS TO ER WITH COMPLAINTS OF FLU-LIKE SYMPTOMS X TWO DAYS. PATIENT REPORTS THAT SHE HAS BEEN EXPERIENCING PRODUCTIVE COUGH WITH GREEN PHLEGM, CONGESTION, BODY ACHES AND INTERMITTENT FRONTAL HEADACHE X1 DAY WITH ASSOCIATED NAUSEA X 1 DAY. SHE RATES HER CURRENT PAIN AN 8/10 AND STATES HER SON HAS ALSO BEEN EXPERIENCING SIMILAR SYMPTOMS. NOTES SHE LAST TOOK [id number] TYLENOL YESTERDAY MORNING WITHOUT RELIEF. PATIENT PRESENTS TO ER FEBRILE ON ARRIVAL AT 100.6 F, AMBULATORY, WITH STEADY GAIT, IN NO DISTRESS AND DENIES ANY KNOWN FEVER PRIOR TO ARRIVAL TO ER. DENIES SHORTNESS OF BREATH, CHEST PAIN, HEMOPTYSIS, SORE THROAT, EARACHE, DIZZINESS, VOMITING OR ANY FURTHER SYMPTOMS/COMPLAINTS Chief Complaint: Flu like Time Seen by MD: 21:31 Primary Care Provider: UNKNOWN Reviewed notes: Nurses Notes, Medications, Allergies Information Source: Patient Mode of Arrival: Ambulatory Past Medical History PAST MEDICAL HISTORY: Asthma, HTN, Thyroid Surgical History: Denies all surgeries CONTROL VALVE MECHANIC History: No Pertinent CONTROL VALVE MECHANIC History Family History Family History: Unknown, Family hx of heart hadley, Family hx of HTN Social History Smoker: Cigarettes, Less Than 1 Pack/Day Alcohol: Occasionally Drugs: Marijuana Lives In: Home Constitutional: denies: chills, diaphoresis, fatigue, fever, malaise, sweats, weakness, others EENTM: reports: others ( STATED IN HPI) Respiratory: reports: others ( STATED IN HPI) Cardiovascular: denies: chest pain, dizzy spells, diaphoresis, Dyspnea on exe rtion, edema, irregular heart beat, left arm pain, lightheadedness, palpitations, PND, syncope, others Gastrointestinal: denies: abdomen distended, abdominal pain, blood streaked bowels, constipated, diarrhea, dysphagia, difficulty swallowing, hematemesis, melena, nausea, poor appetite, poor fluid intake, rectal bleeding, rectal pain, vomiting, others Genitourinary: denies: abnormal vagina bleeding, burning, dyspareunia, dysuria, flank pain, frequency, hematuria, incontinence, pain, , vagina discharge, urgency, others Neurological: reports: others ( STATED IN HPI) Musculoskeletal: denies: back pain, gout, joint pain, joint swelling, muscle p ain, muscle stiffness, neck pain, others Integumetry: denies: bruises, change in color, change in hair/nails, dryness, laceration, lesions, lumps, rash, wounds, others Allergic/Immunocompromised: denies: Difficulty Healing, Frequent Infections, Hives, Itching, others Hematologic/Lymphatic: denies: anemia, blood clots, easy bleeding, easy bruising, swollen glands, others Endocrine: denies: excessive hunger, excessive sweating, excessive thirst, excessive urination, flushing, intolerance to cold, intolerance to heat, unexplained weight gain, unexplained weight loss, others Psychiatric: denies: anxiety, bipolar disorder, depression, hopeless, panic disorder, schizophrenia, sleepless, suicidal, others Physical Exam General Appearance: No Apparent Distress HEENT: Normal ENT Inspection, PERRL/EOMI, Pharynx Normal, TMs Normal Neck: Full Range of Motion, Non-Tender, Normal Respiratory: Chest Non-Tender, Lungs Clear, No Accessory Muscle Use, No Respiratory Distress, Normal Breath Sounds Cardiovascular: No Murmur, No Gallop, Regular Rate/Rhythm Breast Exam: Deferred Gastrointestinal: NOT DONE Genitalia: Deferred Pelvic: Deferred Rectal: Deferred Extremities: Normal capillary refill, Normal range of motion Neurologic: Alert, line tender II-XII nml as Tested, No Motor Deficits, Normal Affect, Normal Mood, No Sensory Deficits Cerebellar Function: Normal Reflexes: Normal Skin: Dry, Normal Color, Warm Peripheral Pulses: 2+ Radial (R), 2+ Radial (L), 2+ Brachial (R), 2+ Brachial (L) Lymphatic: No Adenopathy Was a procedure done? Was a procedure done?: No Sedation Sedation?: No Differential Dx Differential Diagnosis: Pneumonia, Respiratory Distress, Otitis Media, Other (COVID-19, INFLUENZA) X-Ray, Labs, Meds, VS Vital Signs Date Time Temp Pulse Resp B/P (MAP) Pulse Ox O2 Delivery O2 Flow Rate FiO2 02/28/24 02:57 98.6 121 20 146/79 (101) 97 98.6 02/27/24 20:55 100.6 124 18 154/105 (121) 96 100.6 02/27/24 20:55 Room Air 02/27/24 20:55 100.6 124 18 154/105 (121) 96 Lab Test 02/27/24 21:10 Range/Units Influenza Type A Antigen Negative Negative Influenza Type B Antigen Negative Negative SARS-CoV-2 Antigen (Rapid) Negative NEGATIVE Current Medications Medications (Trade) Dose Ordered Sig/Enrique Route Start Time Stop Time Status Last Admin Acetaminophen (Tylenol Tablet) 650 mg ONCE ONCE PO 02/27/24 21:45 02/27/24 21:46 DC 02/27/24 23:57 Methylprednisolone Sodium Succinate (Solu Medrol) 125 mg ONCE ONCE IM 02/28/24 00:00 02/28/24 00:01 DC 02/28/24 02:41 Ceftriaxone Sodium (Rocephin) 1,000 mg ONCE ONCE IM 02/28/24 00:00 02/28/24 00:01 DC 02/28/24 02:41 Ondansetron HCl (Zofran Po) 4 mg ONCE ONCE PO 02/28/24 01:00 02/28/24 01:01 DC 02/28/24 02:22 ALL SWAB RESULTS REVIEWED-NEGATIVE TYLENOL 650 MG P.O. ORDERED ROCEPHIN 1 G IM ORDERED SOLU-MEDROL 125 MG IM ORDERED ZOFRAN 4 MG PO ORDERED SMOKING/CANNABIS CESSATION DISCUSSED AND ADVISED PATIENT HAD IMPROVEMENT IN SYMPTOMS, TOLERATING P.O. INTAKE WELL AND IN NO DIS TRESS PRIOR TO DISCHARGE ADVISED TO DRINK PLENTY OF FLUIDS ADVISED TO FOLLOW UP WITH PCP IN 1-2 DAYS PATIENT VERBALIZED UNDERSTANDING AND AGREEABLE WITH CURRENT PLAN OF CARE ADVISED TO RETURN TO ER IMMEDIATELY IF SYMPTOMS WORSEN Time of 1ST Reevaluation: 23:24 Reevaluation 1ST: N/A Patient Education/Counseling: Diagnosis, Treatment, Prognosis, Need For Follow Up Family Education/Counseling: No Family Present Departure 1 Departure Time of Disposition: 23:52 Impression: Primary Impression: Upper respiratory infection Qualified Codes: J06.9 - Acute upper respiratory infection, unspecified Disposition: 01 HOME / SELF CARE / HOMELESS Condition: Stable e-Prescriptions Albuterol Sulfate (VENTOLIN MDI) 90 Mcg Ih 2 PUFF IN Q4HPRN, #1 INH 0 Refills Prov: KATI DE LA TORRE 02/28/24 Acetaminophen (Acetaminophen) 500 Mg Tab 500 MG PO Q4HPRN, #30 TAB 0 Refills Prov: KATI DE LA TORRE 02/28/24 Prednisone (Prednisone) 20 Mg Tab 20 MG PO BID for 5 Days, #10 TAB 0 Refills Prov: KATI DE LA TORRE 02/28/24 Amoxicillin & Pot Clavulanate (Amoxicillin/Potassium Cla) 875 Mg Tab 1 TAB PO BID for 7 Days, #14 TAB 0 Refills Prov: KATI DE LA TORRE 02/28/24 Discharged With: Self Critical Care Note Critical Care Time?: No Stability Stability form required: No Heart Score Heart Score: Heart Score Response (Comments) Value History N/A 0 EKG N/A 0 Age N/A 0 Risk Factors N/A 0 Troponin N/A 0 Total 0 KATI DE LA TORRE Feb 28, 2024 00:01
[2024-02-28] MEDS: ONDANSETRON ODT 4 MG TAB PO ONE (02:22)
[2024-02-28] MEDS: methylPREDNISolone SOD SUCC 125 MG/2 ML VL IM ONE (02:41)
[2024-02-28] MEDS: cefTRIAXone SOD 1,000 MG VL IM ONE (02:41)
[2024-02-28 02:57] VITALS: BP 146/79; PULSE 121; RESP 20; TEMP 98.6; O2SAT 97
== END 2024-02-28 03:01 | disposition home or self-care (01) ==
LOC: ER 20:30
DX: J06.9 Acute upper respiratory infection, unspecified (principal); J45.909 Unspecified asthma, uncomplicated; I10 Essential (primary) hypertension; F17.210 Nicotine dependence, cigarettes, uncomplicated; F12.10 Cannabis abuse, uncomplicated; Z20.822 Contact with and (suspected) exposure to COVID-19
CPT/HCPCS: 36415; 87426; 87804; 96372; 99284; J0696; J2919; Q0162

== ENCOUNTER 2024-07-03 09:52 | Emergency (ER) | payer MEDICAID ==
[~2024-07-03] VITALS: Ht 160 cm; Wt 101.3 kg
[~2024-07-03 09:52] MED LIST changes: +ACET500T58 PO; +AMOX875T4 PO
--- NOTE | 2024-07-03 10:23 | ED.PDOC ---
HPI Comments 33 year old female presents to the ED with chief complaint of chest pain. Patient reports that she has been experiencing chest pain with associated headache and nausea for the past 2 days. Patient relays that she visited today, but was told her BP was too high and she needed to follow up with the ED for further evaluation. Patient denies any vomiting, abdominal pain, dizziness, SOB, cough, fever, or chills. Chief Complaint: High Blood Pressure Time Seen by MD: 10:20 Primary Care Provider: UNKNOWN Reviewed Notes: Nurses Notes, Medications, Allergies Allergies: Coded Allergies: NO KNOWN ALLERGIES (Unverified , 05/17/17) Home Meds Active Scripts Albuterol Sulfate (VENTOLIN MDI) 90 Mcg Ih, 2 PUFF IN Q4HPRN, #1 INH 0 Refills Prov:KATI DE LA TORRE 02/28/24 Acetaminophen (Acetaminophen) 500 Mg Tab, 500 MG PO Q4HPRN, #30 TAB 0 Refills Prov:KATI DE LA TORRE 02/28/24 Prednisone (Prednisone) 20 Mg Tab, 20 MG PO BID for 5 Days, #10 TAB 0 Refills Prov:KATI DE LA TORRE 02/28/24 Amoxicillin & Pot Clavulanate (Amoxicillin/Potassium Cla) 875 Mg Tab, 1 TAB PO BID for 7 Days, #14 TAB 0 Refills Prov:KATI DE LA TORRE 02/28/24 Folic Acid (Folic Acid) 1 Mg Tab, 1 MG PO DAILY, #30 TAB Prov:MATIAS MARCH MD 11/12/23 Thiamine HCl (Thiamine Hydrochloride) 100 Mg Tab, 100 MG PO DAILY, #30 TAB Prov:MATIAS MARCH MD 11/12/23 Ondansetron Odt 4MG Tab (ZOFRAN PO) 4 Mg Tb, 4 MG PO QID PRN, #20 TAB ODT TAB-DISSOLVE IN MOUTH, THEN SWALLOW Prov:MATIAS MARCH MD 11/12/23 Doxycycline Monohydrate (Doxycycline Monohydrate) 100 Mg Cap, 1 CAP PO BID, #28 CAP Prov:MATIAS MARCH MD 11/12/23 Albuterol Sulfate (Albuterol Sulfate Hfa) 108 Mcg/Act Aer, 108 MCG IN TID, #90 AER Prov:BLU JANG 07/21/23 Prednisone (Prednisone) 20 Mg Tab, 60 MG PO DAILY, #15 TAB Prov:BLU JANG PAC 07/21/23 Nitrofurantoin (Nitrofurantoin) 100 Mg Cap, 1 CAP PO BID for 5 Days, #10 CAP Prov:BLU JANG PAC 07/20/23 Hydrochlorothiazide (Hydrochlorothiazide) 25 Mg Tab, 1 TAB PO DAILY, #30 TAB 5 Refills Prov:SULAIMAN GARZA MD 10/31/22 Nitrofurantoin Monohydrate Mac (Macrobid) 100 Mg Cap, 100 MG PO BID for 5 Days, #10 CAP Prov:SULAIMAN GARZA MD 10/31/22 Amoxicillin & Pot Clavulanate (AUGMENTIN TABLET) 875 Mg Tb, 875 MG PO BID for 10 Days, #20 TAB Prov:GAMALIEL GILLESPIE 09/01/22 Oxycodone W/ Acetaminophen (Percocet 5/325MG) 1 Tab Tb, 1 TAB PO BID for 7 Days, #14 TAB Prov:GORAN CARTWRIGHT MD 08/18/22 Albuterol Sulfate (VENTOLIN MDI) 90 Mcg Ih, 90 MCG IN TIDP PRN for 30 Days, #1 INH Prov:NOLA ARCHIBALD MD 06/22/22 Prednisone (Prednisone) 20 Mg Tab, 20 MG PO QAM for 5 Days, #5 TAB Prov:NOLA ARCHIBALD MD 06/22/22 Ascorbic Acid (VITAMIN C TABLET) 500 Mg Tb, 500 MG PO DAILY for 30 Days, #30 TAB Prov:NOLA ARCHIBALD MD 06/22/22 Lisinopril (Lisinopril) 20 Mg Tab, 20 MG PO DAILY for 30 Days, #30 TAB 3 Refills Prov:NOLA ARCHIBALD MD 06/22/22 Hctz (Hydrochlorothiazide) 25 Mg Tab, 25 MG PO QAM for 30 Days, #30 TAB 3 Refills Prov:NOLA ARCHIBALD MD 06/22/22 Azithromycin (Azithromycin) 250 Mg Tab, 500 MG PO DAILY for 5 Days, #10 TAB Prov:NOLA ARCHIBALD MD 06/22/22 Reported Medications Quetiapine Fumerate (Seroquel) 25 Mg Tab, 10 MG PO HS for depression, TAB 06/20/22 Albuterol Sulfate (Albuterol Sulfate) 2 Mg Tab, 10 MG PO Q6HP PRN for SHORTNESS OF BREATH, MG 06/20/22 Hydrochlorothiazide (Hydrochlorothiazide) 12.5 Mg Cap, 5 MG PO BID for 30 Days, MG 06/20/22 Information Source: Patient Mode of Arrival: Ambulatory Severity: Moderate Timing: Days Duration: Since onset Prehospital treatment: None Location: Substernal Radiation: No Radiation Quality: Aching Onset: At Rest Cardiac Risk Factors: None PE Risk Factors: None History of: None Past Medical History PAST MEDICAL HISTORY: Asthma, HTN, Thyroid Surgical History: Denies all surgeries PIN OR CLIP FASTENER History: No Pertinent PIN OR CLIP FASTENER History Family History Family History: Unknown, Family hx of heart hadley, Family hx of HTN Social History Smoker: Cigarettes, Less Than 1 Pack/Day Alcohol: Occasionally Drugs: Marijuana Lives In: Home Constitutional: denies: chills, diaphoresis, fatigue, fever, malaise, sweats, weakness, others EENTM: denies: blurred vision, double vision, ear bleeding, ear discharge, ear drainage, ear pain, ear ringing, eye pain, eye redness, hearing loss, mouth pain, mouth swelling, nasal discharge, nose bleeding, nose congestion, nose pain, photophobia, tearing, throat pain, throat swelling, voice changes, others Respiratory: denies: cough, hemoptysis, orthopnea, SOB at rest, shortness of breath, SOB with excertion, stridor, wheezing, others Cardiovascular: reports: chest pain, lightheadedness; denies: dizzy spells, diaphoresis, Dyspnea on exertion, edema, irregular heart beat, left arm pain, palpitations, PND, syncope, others Gastrointestinal: reports: nausea; denies: abdomen distended, abdominal pain, blood streaked bowels, constipated, diarrhea, dysphagia, difficulty swallowing, hematemesis, melena, poor appetite, poor fluid intake, rectal bleeding, rectal pain, vomiting, others Genitourinary: denies: abnormal vagina bleeding, burning, dyspareunia, dysuria, flank pain, frequency, hematuria, incontinence, pain, , vagina discharge, urgency, others Neurological: reports: headache; denies: dizziness, fainting, left sided numbness, left sided weakness, numbness, paresthesia, pre-existing deficit, right sided numbness, right sided weakness, seizure, speech problems, tingling, tremors, weakness, others Musculoskeletal: denies: back pain, gout, joint pain, joint swelling, muscle p ain, muscle stiffness, neck pain, others Integumetry: denies: bruises, change in color, change in hair/nails, dryness, laceration, lesions, lumps, rash, wounds, others Allergic/Immunocompromised: denies: Difficulty Healing, Frequent Infections, Hives, Itching, others Hematologic/Lymphatic: denies: anemia, blood clots, easy bleeding, easy bruising, swollen glands, others Endocrine: denies: excessive hunger, excessive sweating, excessive thirst, excessive urination, flushing, intolerance to cold, intolerance to heat, unexplained weight gain, unexplained weight loss, others Psychiatric: denies: anxiety, bipolar disorder, depression, hopeless, panic disorder, schizophrenia, sleepless, suicidal, others All Other Systems: Reviewed and Negative Physical Exam General Appearance: Moderate Distress, Normal HEENT: Normal ENT Inspection, Pharynx Normal, TMs Normal Neck: Full Range of Motion, Non-Tender, Normal, Normal Inspection Respiratory: Chest Non-Tender, Lungs Clear, No Accessory Muscle Use, No Respiratory Distress, Normal Breath Sounds Cardiovascular: No Edema, No JVD, No Murmur, No Gallop, Normal Peripheral Pulses, Regular Rate/Rhythm Breast Exam: Deferred Gastrointestinal: No Organomegaly, Non Tender, No Pulsatile Mass, Normal Bowel Sounds, Soft Genitalia: Deferred Pelvic: Deferred Rectal: Deferred Extremities: No calf tenderness, Normal capillary refill, Normal inspection, Normal range of motion, Non-tender, No pedal edema Musculoskeletal : Apperance: Normal Neurologic: Alert, inventory accountant II-XII nml as Tested, No Motor Deficits, Normal Affect, Normal Mood, No Sensory Deficits Cerebellar Function: Normal Reflexes: Normal Skin: Dry, Normal Color, Warm Peripheral Pulses: 3+ Radial (R), 3+ Radial (L) Lymphatic: No Adenopathy Was a procedure done? Was a procedure done?: No CP Differential Dx Differential Diagnosis: A-fib, A-Flutter, Angina, Anxiety / Panic Attack, Atrial Dysrhythmia, Electrolyte Disorder X-Ray, Labs, Meds, VS Vital Signs Date Time Temp Pulse Resp B/P (MAP) Pulse Ox O2 Delivery O2 Flow Rate FiO2 5/14/25 13:20 162/84 07/03/24 12:20 185/107 07/03/24 09:58 93 07/03/24 09:53 97.9 78 16 155/104 (121) 96 97.9 Lab Test 07/03/24 12:56 07/03/24 11:25 07/03/24 10:21 07/03/24 10:04 Range/Units Urine Color Yellow Yellow Urine Clarity Clear Clear Urine pH 6.0 5.0-9.0 Urine Specific [place] 1.032 1.001-1.035 Urine Protein Trace H Negative Urine Ketones Negative Negative Urine Blood 1+ H Negative /uL Urine Nitrite Negative Negative Urine Bilirubin Negative Negative Urine Urobilinogen Normal Negative mg/dL Urine Leukocyte Esterase 2+ Negative /uL Urine RBC 8 0 - 4 /hpf Urine Microscopic WBC 8 H 0-5 /HPF Urine Squamous Epithelial Cells Few <5 /hpf Urine Bacteria Mod H None Seen /hpf Urine Mucus Few None Seen Urine Glucose Normal Normal mg/dL Troponin I High Sensitivity 4 3 L </=34 ng/L White Blood Count 10.4 4.4-10.8 10^3/uL Red Blood Count 5.68 H 4.0-5.20 10^6/uL Hemoglobin 15.7 12.2-16.2 g/dL Hematocrit 45.3 36.0-46.0 % Mean Corpuscular Volume 79.8 L 80.0-100.0 fL Mean Corpuscular Hemoglobin 27.6 L 28.0-32.0 pg Mean Corpuscular Hemoglobin Concent 34.5 32.0-36.0 g/dL Red Cell Distribution Width 13.1 11.8-14.3 % Platelet Count 264 140-450 10^3/uL Mean Platelet Volume 8.2 6.9-10.8 fL Neutrophils (%) (Auto) 62.9 37.0-80.0 % Lymphocytes (%) (Auto) 30.6 10.0-50.0 % Monocytes (%) (Auto) 5.0 0.0-12.0 % Eosinophils (%) (Auto) 1.0 0.0-7.0 % Basophils (%) (Auto) 0.5 0.0-2.0 % Neutrophils # (Auto) 6.6 1.6-8.6 10 ^3/uL Lymphocytes # (Auto) 3.2 0.4-5.4 10 ^3/uL Monocytes # (Auto) 0.5 0-1.3 10 ^3/uL Eosinophils # (Auto) 0.1 0-0.8 10 ^3/uL Basophils # (Auto) 0.1 0-0.2 10 ^3/uL Nucleated Red Blood Cells 0.1 % Sodium Level 140 136-145 mmol/L Potassium Level 3.2 L 3.5-5.1 mmol/L Chloride Level 103 98-107 mmol/L Carbon Dioxide Level 29 20-31 mmol/L Anion Gap 8 5-15 Blood Urea Nitrogen 10 9-23 mg/dL Creatinine 0.78 0.550-1.02 mg/dL Glomerular Filtration Rate Calc 102 >90 mL/min BUN/Creatinine Ratio 12.8 10.0-20.0 Serum Glucose 154 H 74-106 mg/dL Calcium Level 9.7 8.7-10.4 mg/dL POC Glucose 151 H 70-106 mg/dl Current Medications Medications (Trade) Dose Ordered Sig/Enrique Route Start Time Stop Time Status Last Admin Clonidine HCl (Catapres Tablet) 0.2 mg ONCE ONCE PO 07/03/24 10:30 07/03/24 10:31 DC 07/03/24 12:20 Potassium Bicarbonate (Klor-Con/Ef) 25 meq ONCE ONCE PO 07/03/24 16:30 07/03/24 16:31 DC 07/03/24 16:28 Patient alert. Complaining of having high blood pressure. She has been taking her blood pressure medication for months. Heart rate within normal limits. She was given clonidine. Answering questions. WBC within normal limits. Was given prescription of lisinopril. Urinalysis shows UTI. She was given Macrobid antibiotic. Explained to the patient at 4:25 p.m. her diagnosis reviewed the lab findings including giving a prescription of lisinopril for her blood pressure. Was told to follow up with her primary care physician. Was told to come back if there is any problem. Time of 1ST Reevaluation: 11:20 Reevaluation 1ST: Unchanged Time of 2ND Reevaluation: 16:25 Reevaluation 2ND: Improved Patient Education/Counseling: Diagnosis, Treatment Family Education/Counseling: No Family Present Additional Information The following tests were ordered, and results were reviewed by me: CBC, BMP, UA, Troponin, EKG Additional Information was gathered from interviewing the following independent historians: None I reviewed and agreed with the following test results read by other providers: None I discussed treatment and results with medical personnel and: patient Comprehensive systems review obtained and negative except for what is stated in the HPI. Departure 1 Departure Time of Disposition: 16:29 Impression: Primary Impression: Hypertensive urgency Additional Impression: UTI (urinary tract infection) Qualified Codes: N30.00 - Acute cystitis without hematuria Disposition: HOME / SELF CARE / HOMELESS Condition: Good e-Prescriptions Nitrofurantoin Monohydrate Mac (Macrobid) 100 Mg Cap 100 MG PO BID for 7 Days, #14 CAP Prov: WILLIE DUNN MD 07/03/24 Ibuprofen Micronized (MOTRIN TABLET) 600 Mg Tb 600 MG PO TID PRN for 3 Days, #9 TAB *Black box warning-NSAIDS can increase risk of HI & hypertension, GI irritation, ulceration, bleed, perferation. Do not use post cardiac surgery. Use short duration/lowest effective dose. Prov: WILLIE DUNN MD 07/03/24 Lisinopril (Lisinopril) 20 Mg Tab 1 TAB PO DAILY for 20 Days, #20 TAB 5 Refills Prov: WILLIE DUNN MD 07/03/24 Discharged With: Self Comments Spoke to and examined patient at 1015, discussing treatment plan at this time. Critical Care Note Critical Care Time?: No Stability Stability form required: No Heart Score Heart Score: Heart Score Response (Comments) Value History Moderate Suspicious 1 EKG Normal 0 Age <45 0 Risk Factors No known risk factors 0 Troponin Normal limit 0 Total 1 I personally scribed for WILLIE DUNN MD ([email or web address]) on 07/03/24 at 10:23. Electronically submitted by Arvind Schilling ([email or web address]). WILLIE DUNN MD July 03, 2024 10:23
[2024-07-03 10:35] LABS: Basophils # (auto) 0.1 10 ^3/uL (0-0.2); Basophils % (auto) 0.5 % (0.0-2.0); Eosinophils # (auto) 0.1 10 ^3/uL (0-0.8); Hematocrit 45.3 % (36.0-46.0); Hemoglobin 15.7 g/dL (12.2-16.2); Lymphocytes # (auto) 3.2 10 ^3/uL (0.4-5.4); Lymphocytes % (auto) 30.6 % (10.0-50.0); Mean Corpuscular Hemoglobin 27.6 pg (28.0-32.0); Mean Corpuscular Hgb Conc. 34.5 g/dL (32.0-36.0); Mean Corpuscular Volume 79.8 fL (80.0-100.0); Monocytes # (auto) 0.5 10 ^3/uL (0-1.3); Neutrophils # (auto) 6.6 10 ^3/uL (1.6-8.6); Neutrophils % (auto) 62.9 % (37.0-80.0); Nucleated Red Blood Cells % 0.1 %; Platelet Count (auto) 264 10^3/uL (140-450); Red Blood Cells 5.68 10^6/uL (4.0-5.20); Red Cell Distribution Width 13.1 % (11.8-14.3); White Blood Cell 10.4 10^3/uL (4.4-10.8)
[2024-07-03 10:48] LABS: Chloride 103 mmol/L (98-107); Sodium 140 mmol/L (136-145)
[2024-07-03 10:49] LABS: Anion Gap 8 (5-15); Calcium 9.7 mg/dL (8.7-10.4); Carbon Dioxide 29 mmol/L (20-31)
[2024-07-03 10:52] LABS: Potassium 3.2 mmol/L (3.5-5.1)
[2024-07-03 10:54] LABS: BUN/Creatinine Ratio 12.8 (10.0-20.0); Blood Urea Nitrogen 10 mg/dL (9-23)
[2024-07-03 11:02] LABS: Glucose 154 mg/dL (74-106)
[2024-07-03] MEDS: cloNIDine HCL 0.1 MG TAB PO ONE (12:20)
[2024-07-03 15:14] LABS: Urine Bacteria MOD /hpf (None Seen); Urine Blood 1+ /uL (Negative); Urine Clarity Clear (Clear); Urine Color Yellow (Yellow); Urine Mucus FEW (None Seen); Urine Protein, UAD TRACE (Negative); Urine Specific Gravity 1.032 (1.001-1.035); Urine Squamous Epithelial Cell FEW /hpf (<5); Urine Urobilinogen Normal (Negative); Urine WBC 8 /HPF (0-5)
[2024-07-03] MEDS: POTASSIUM EFFERVESENT TAB 25 MEQ PO ONE (16:28)
[2024-07-03] MEDS ORDERED: IBU600T PO (16:39)
[2024-07-03] MEDS ORDERED: LISI20TA56 PO (16:39)
[2024-07-03] MEDS ORDERED: NITR-87 PO (16:39)
[2024-07-03 16:46] VITALS: BP 160/94; PULSE 72; RESP 16; TEMP 97.6; O2SAT 98
--- NOTE | 2024-07-04 06:56 | ECG ---
[facility] Test Date: 2024-07-03 Test Time: 09:58:24 Pat Name: JOSÉ LUIS TREJO Department: ER Room: Gender: F Outside Sales Manager: [place] : [id number] Requested By: WILLIE DUNN Order Number: [id number] Reading MD: Albert Zaman Measurements Intervals [place] Rate: 93 P: 19 TN: 132 QRS: 21 QRSD: 82 T: 57 QT: 356 QTc: 443 Interpretive Statements Sinus rhythm Ventricular premature complex Electronically Signed On 07-04-2024 13:13:32 PDT by Albert Zaman Please click the below link to view image of tracing.
== END 2024-07-03 16:48 | disposition home or self-care (01) ==
LOC: ER 09:52
DX: I16.0 Hypertensive urgency (principal); N39.0 Urinary tract infection, site not specified; J45.909 Unspecified asthma, uncomplicated; I10 Essential (primary) hypertension; F12.90 Cannabis use, unspecified, uncomplicated; F17.210 Nicotine dependence, cigarettes, uncomplicated; Z79.899 Other long term (current) drug therapy
CPT/HCPCS: 36415; 80048; 81001; 82947; 82962; 84484; 85025; 93005

== ENCOUNTER 2024-11-18 20:11 | Inpatient (IN) | payer MEDICAID ==
[~2024-11-18] VITALS: Ht 160 cm; Wt 97.2 kg
[~2024-11-18 20:11] MED LIST changes: +IBU600T PO
--- NOTE | 2024-11-18 20:29 | ED.PDOC ---
History of Present Illness HPI Comments 34-year-old female with a hypertension, chlamydial UTI, ? PID., asthma, tobacco use who has been to the ER with a chief complaint of a chest pain 48 hour. Patient reports left-sided chest pain, radiating to the back, sharp and pressure-type in nature, 10/10 in intensity, which started while she was watching a game, associated with a headache, denies nausea vomiting diaphoresis, on arrival to the ER patient's blood pressure was 190/100 mmHg, pulse 90s, troponin unremarkable. Patient reports compliance to her hypertensive medication including hydrochlorothiazide and lisinopril. History significant mom passing at 39 and sister passing at 33, cardiac causes Chief Complaint: Chest Pain Time Seen by MD: 20:18 Primary Care Provider: UNKNOWN Reviewed Notes: Nurses Notes Allergies: Coded Allergies: NO KNOWN ALLERGIES (Unverified , 05/17/17) Home Meds Active Scripts Nitrofurantoin Monohydrate Mac (Macrobid) 100 Mg Cap, 100 MG PO BID for 7 Days, #14 CAP Prov:WILLIE DUNN MD 07/03/24 Ibuprofen Micronized (MOTRIN TABLET) 600 Mg Tb, 600 MG PO TID PRN for 3 Days, #9 TAB *Black box warning-NSAIDS can increase risk of ND & hypertension, GI irritation, ulceration, bleed, perferation. Do not use post cardiac surgery. Use short duration/lowest effective dose. Prov:WILLIE DUNN MD 07/03/24 Lisinopril (Lisinopril) 20 Mg Tab, 1 TAB PO DAILY for 20 Days, #20 TAB 5 Refills Prov:WILLIE DUNN MD 07/03/24 Albuterol Sulfate (VENTOLIN MDI) 90 Mcg Ih, 2 PUFF IN Q4HPRN, #1 INH 0 Refills Prov:KATI DE LA TORRE 02/28/24 Acetaminophen (Acetaminophen) 500 Mg Tab, 500 MG PO Q4HPRN, #30 TAB 0 Refills Prov:KATI DE LA TORRE 02/28/24 Prednisone (Prednisone) 20 Mg Tab, 20 MG PO BID for 5 Days, #10 TAB 0 Refills Prov:KATI DE LA TORRE 02/28/24 Amoxicillin & Pot Clavulanate (Amoxicillin/Potassium Cla) 875 Mg Tab, 1 TAB PO BID for 7 Days, #14 TAB 0 Refills Prov:KATI DE LA TORRE 02/28/24 Folic Acid (Folic Acid) 1 Mg Tab, 1 MG PO DAILY, #30 TAB Prov:MATIAS MARCH MD 11/12/23 Thiamine HCl (Thiamine Hydrochloride) 100 Mg Tab, 100 MG PO DAILY, #30 TAB Prov:MATIAS MARCH MD 11/12/23 Ondansetron Odt 4MG Tab (ZOFRAN PO) 4 Mg Tb, 4 MG PO QID PRN, #20 TAB ODT TAB-DISSOLVE IN MOUTH, THEN SWALLOW Prov:MATIAS MARCH MD 11/12/23 Doxycycline Monohydrate (Doxycycline Monohydrate) 100 Mg Cap, 1 CAP PO BID, #28 CAP Prov:MATIAS MARCH MD 11/12/23 Albuterol Sulfate (Albuterol Sulfate Hfa) 108 Mcg/Act Aer, 108 MCG IN TID, #90 AER Prov:BLU JANG 07/21/23 Prednisone (Prednisone) 20 Mg Tab, 60 MG PO DAILY, #15 TAB Prov:BLU JANG 07/21/23 Nitrofurantoin (Nitrofurantoin) 100 Mg Cap, 1 CAP PO BID for 5 Days, #10 CAP Prov:BLU JANG 07/20/23 Hydrochlorothiazide (Hydrochlorothiazide) 25 Mg Tab, 1 TAB PO DAILY, #30 TAB 5 Refills Prov:SULAIMAN GARZA MD 10/31/22 Nitrofurantoin Monohydrate Mac (Macrobid) 100 Mg Cap, 100 MG PO BID for 5 Days, #10 CAP Prov:SULAIMAN GARZA MD 10/31/22 Amoxicillin & Pot Clavulanate (AUGMENTIN TABLET) 875 Mg Tb, 875 MG PO BID for 10 Days, #20 TAB Prov:GAMALIEL GILLESPIE 09/01/22 Oxycodone W/ Acetaminophen (Percocet 5/325MG) 1 Tab Tb, 1 TAB PO BID for 7 Days, #14 TAB Prov:GORAN CARTWRIGHT MD 08/18/22 Albuterol Sulfate (VENTOLIN MDI) 90 Mcg Ih, 90 MCG IN TIDP PRN for 30 Days, #1 INH Prov:NOLA ARCHIBALD MD 06/22/22 Prednisone (Prednisone) 20 Mg Tab, 20 MG PO QAM for 5 Days, #5 TAB Prov:NOLA ARCHIBALD MD 06/22/22 Ascorbic Acid (VITAMIN C TABLET) 500 Mg Tb, 500 MG PO DAILY for 30 Days, #30 TAB Prov:NOLA ARCHIBALD MD 06/22/22 Lisinopril (Lisinopril) 20 Mg Tab, 20 MG PO DAILY for 30 Days, #30 TAB 3 Refills Prov:NOLA ARCHIBALD MD 06/22/22 Hctz (Hydrochlorothiazide) 25 Mg Tab, 25 MG PO QAM for 30 Days, #30 TAB 3 Refills Prov:NOLA ARCHIBALD MD 06/22/22 Azithromycin (Azithromycin) 250 Mg Tab, 500 MG PO DAILY for 5 Days, #10 TAB Prov:NOLA ARCHIBALD MD 06/22/22 Reported Medications Quetiapine Fumerate (Seroquel) 25 Mg Tab, 10 MG PO HS for depression, TAB 06/20/22 Albuterol Sulfate (Albuterol Sulfate) 2 Mg Tab, 10 MG PO Q6HP PRN for SHORTNESS OF BREATH, MG 06/20/22 Hydrochlorothiazide (Hydrochlorothiazide) 12.5 Mg Cap, 5 MG PO BID for 30 Days, MG 06/20/22 Mode of Arrival: Ambulatory Past Medical History PAST MEDICAL HISTORY: Asthma, HTN, Thyroid Surgical History: Denies all surgeries TITLE CHECKER History: No Pertinent TITLE CHECKER History Family History Family History: Unknown, Family hx of heart hadley, Family hx of HTN Social History Smoker: Cigarettes, Less Than 1 Pack/Day Alcohol: Occasionally Drugs: Marijuana Lives In: Home Constitutional: denies: chills, diaphoresis, fatigue, fever, malaise, sweats, weakness, others EENTM: denies: blurred vision, double vision, ear bleeding, ear discharge, ear drainage, ear pain, ear ringing, eye pain, eye redness, hearing loss, mouth pain, mouth swelling, nasal discharge, nose bleeding, nose congestion, nose pain, photophobia, tearing, throat pain, throat swelling, voice changes, others Respiratory: denies: cough, hemoptysis, orthopnea, SOB at rest, shortness of breath, SOB with excertion, stridor, wheezing, others Cardiovascular: reports: chest pain Gastrointestinal: denies: abdomen distended, abdominal pain, blood streaked bowels, constipated, diarrhea, dysphagia, difficulty swallowing, hematemesis, melena, nausea, poor appetite, poor fluid intake, rectal bleeding, rectal pain, vomiting, others Genitourinary: denies: abnormal vagina bleeding, burning, dyspareunia, dysuria, flank pain, frequency, hematuria, incontinence, pain, , vagina discharge, urgency, others Neurological: denies: dizziness, fainting, headache, left sided numbness, left sided weakness, numbness, paresthesia, pre-existing deficit, right sided numbness, right sided weakness, seizure, speech problems, tingling, tremors, weakness, others Musculoskeletal: denies: back pain, gout, joint pain, joint swelling, muscle pain, muscle stiffness, neck pain, others Integumetry: denies: bruises, change in color, change in hair/nails, dryness, laceration, lesions, lumps, rash, wounds, others Allergic/Immunocompromised: denies: Difficulty Healing, Frequent Infections, Hives, Itching, others Hematologic/Lymphatic: denies: anemia, blood clots, easy bleeding, easy bruising, swollen glands, others Endocrine: denies: excessive hunger, excessive sweating, excessive thirst, excessive urination, flushing, intolerance to cold, intolerance to heat, unexplained weight gain, unexplained weight loss, others Psychiatric: denies: anxiety, bipolar disorder, depression, hopeless, panic disorder, schizophrenia, sleepless, suicidal, others Physical Exam General Appearance: No Apparent Distress, Normal HEENT: Normal ENT Inspection, Pharynx Normal, TMs Normal Neck: Full Range of Motion, Non-Tender, Normal, Normal Inspection Respiratory: Chest Non-Tender, Lungs Clear, No Accessory Muscle Use, No Respiratory Distress, Normal Breath Sounds Cardiovascular: No Edema, No JVD, No Murmur, No Gallop, Normal Peripheral Pulses, Regular Rate/Rhythm Breast Exam: Deferred Gastrointestinal: No Organomegaly, Non Tender, No Pulsatile Mass, Normal Bowel Sounds, Soft Genitalia: Deferred Pelvic: Deferred Rectal: Deferred Extremities: No calf tenderness, Normal capillary refill, Normal inspection, Normal range of motion, Non-tender, No pedal edema Musculoskeletal : Apperance: Normal Neurologic: Alert, strip picker II-XII nml as Tested, No Motor Deficits, Normal Affect, Normal Mood, No Sensory Deficits Cerebellar Function: Normal Reflexes: Normal Skin: Dry, Normal Color, Warm Lymphatic: No Adenopathy Was a procedure done? Was a procedure done?: No EKG EKG : Cardiac Rhythm: NSR Differential Dx Considerations may include: ACS/pericarditis/PE X-Ray, Labs, Meds, VS Vital Signs Date Time Temp Pulse Resp B/P (MAP) Pulse Ox O2 Delivery O2 Flow Rate FiO2 11/19/24 00:00 92 162/103 11/18/24 23:12 196/100 11/18/24 23:07 196/100 11/18/24 23:00 98.4 85 16 196/100 (132) 100 98.4 11/18/24 21:08 70 11/18/24 20:24 98.2 88 18 196/110 98 98.2 11/18/24 20:15 80 Lab Test 11/18/24 23:00 11/18/24 22:05 11/18/24 20:40 Range/Units Urine Color Light-yellow Yellow Urine Clarity Clear Clear Urine pH 6.0 5.0-9.0 Urine Specific [place] 1.028 1.001-1.035 Urine Protein Negative Negative Urine Ketones Negative Negative Urine Blood 1+ H Negative /uL Urine Nitrite Negative Negative Urine Bilirubin Negative Negative Urine Urobilinogen Normal Negative mg/dL Urine Leukocyte Esterase Trace Negative /uL Urine RBC 6 0 - 4 /hpf Urine Microscopic WBC 3 0-5 /HPF Urine Squamous Epithelial Cells Few <5 /hpf Urine Bacteria None seen None Seen /hpf Urine Mucus Few None Seen Urine Glucose Normal Normal mg/dL Urine Test Negative Negative Troponin I High Sensitivity 3 L < 3 L </=34 ng/L White Blood Count 11.8 H 4.4-10.8 10^3/uL Red Blood Count 4.94 4.0-5.20 10^6/uL Hemoglobin 13.7 12.2-16.2 g/dL Hematocrit 40.1 36.0-46.0 % Mean Corpuscular Volume 81.3 80.0-100.0 fL Mean Corpuscular Hemoglobin 27.8 L 28.0-32.0 pg Mean Corpuscular Hemoglobin Concent 34.2 32.0-36.0 g/dL Red Cell Distribution Width 13.2 11.8-14.3 % Platelet Count 274 140-450 10^3/uL Mean Platelet Volume 8.7 6.9-10.8 fL Neutrophils (%) (Auto) 68.6 37.0-80.0 % Lymphocytes (%) (Auto) 25.8 10.0-50.0 % Monocytes (%) (Auto) 4.6 0.0-12.0 % Eosinophils (%) (Auto) 0.6 0.0-7.0 % Basophils (%) (Auto) 0.4 0.0-2.0 % Neutrophils # (Auto) 8.1 1.6-8.6 10 ^3/uL Lymphocytes # (Auto) 3.1 0.4-5.4 10 ^3/uL Monocytes # (Auto) 0.5 0-1.3 10 ^3/uL Eosinophils # (Auto) 0.1 0-0.8 10 ^3/uL Basophils # (Auto) 0 0-0.2 10 ^3/uL Nucleated Red Blood Cells 0.0 % Sodium Level 143 136-145 mmol/L Potassium Level 3.4 L 3.5-5.1 mmol/L Chloride Level 107 98-107 mmol/L Carbon Dioxide Level 27 20-31 mmol/L Anion Gap 9 5-15 Blood Urea Nitrogen 11 9-23 mg/dL Creatinine 0.76 0.550-1.02 mg/dL Glomerular Filtration Rate Calc 104 >90 mL/min BUN/Creatinine Ratio 14.5 10.0-20.0 Serum Glucose 95 74-106 mg/dL Calcium Level 9.2 8.7-10.4 mg/dL Current Medications Medications (Trade) Dose Ordered Sig/Enrique Route Start Time Stop Time Status Last Admin Clonidine HCl (Catapres Tablet) 0.2 mg ONCE ONCE PO 11/18/24 20:30 11/18/24 20:36 DC 11/18/24 23:07 Hydralazine HCl (Apresoline Injection) 10 mg ONCE ONCE IV 11/18/24 20:30 11/18/24 20:36 DC 11/18/24 23:12 Potassium Bicarbonate (Klor-Con/Ef) 50 meq ONCE ONCE PO 11/18/24 22:00 11/18/24 22:03 DC 11/18/24 23:07 Labetalol HCl (Labetalol HCl) 10 mg ONCE ONCE IV 11/18/24 23:15 11/18/24 23:27 DC 11/19/24 00:00 Images Reviewed?: Images reviewed and evaluated by me Time of 1ST Reevaluation: 22:00 Reevaluation 1ST: Improved Time of 2ND Reevaluation: 23:00 Reevaluation 2ND: Improved Consultation: PCP, Cardiology Patient Education/Counseling: Diagnosis, Treatment, Prognosis, Need For Follow Up Family Education/Counseling: No Family Present SEPSIS Sepsis Screen Date sepsis recognized/suspect: Nov 18, 2024 Time Sepsis recognized/suspect: 2025 Recent Procedure: No On Antibiotic Therapy: No Respiratory Rate >20: No Heart Rate >90: No Temp<36 C (96.8 F) or >38.3 C: No SBP <90 or MAP <65 mmHG: No New Acute Mental Status Change: No Is the patient on CPAP, BIPAP,: No Physician Orders Chest Xray 1 View (11/18/24 20:27) Electrocardigram (11/18/24 21:27) Vital Signs Date Time Temp Pulse Resp B/P (MAP) Pulse Ox O2 Delivery O2 Flow Rate FiO2 11/19/24 00:00 92 162/103 11/18/24 23:12 196/100 11/18/24 23:07 196/100 11/18/24 23:00 98.4 85 16 196/100 (132) 100 98.4 11/18/24 21:08 70 11/18/24 20:24 98.2 88 18 196/110 98 98.2 11/18/24 20:15 80 Laboratory Tests Test 11/18/24 20:40 White Blood Count 11.8 10^3/uL (4.4-10.8) H Medications Medications Dose Ordered Sig/Enrique Route Start Time Stop Time Status Last Admin Dose Admin Clonidine HCl 0.2 mg ONCE ONCE PO 11/18/24 20:30 11/18/24 20:36 DC 11/18/24 23:07 Hydralazine HCl 10 mg ONCE ONCE IV 11/18/24 20:30 11/18/24 20:36 DC 11/18/24 23:12 Labetalol HCl 10 mg ONCE ONCE IV 11/18/24 23:15 11/18/24 23:27 DC 11/19/24 00:00 Potassium Bicarbonate 50 meq ONCE ONCE PO 11/18/24 22:00 11/18/24 22:03 DC 11/18/24 23:07 Departure 1 Departure Time of Disposition: 01:07 Impression: Primary Impression: Chest pain Additional Impression: Hypertensive urgency Disposition: 30 STILL A PATIENT Admit to: Tele Condition: Stable Additional Instructions: Patient will be admitted for workup of chest pain and secondary hypertension. She has strong family history of sudden cardiac and heart attacks including her mother who passed at 39 and sister who passed at 33 Critical Care Note Critical Care Time?: No Stability Stability form required: No Heart Score Heart Score: Heart Score Response (Comments) Value History Moderate Suspicious 1 EKG Normal 0 Age <45 0 Risk Factors >3 or Hx ASHD 2 Troponin Normal limit 0 Total 3 ADAN LIEBERMAN RESIDENT Nov 18, 2024 20:29
--- NOTE | 2024-11-18 21:07 | DVH ---
CHEST RADIOGRAPH Indication: chest pain, sob Technique: Single frontal view of the chest was obtained Comparison: XY CHEST PORTABLE on DOS: 11/09/23, XY CHEST XRAY 1 VIEW on DOS: 07/20/23, XY CHEST PORTABL E on DOS: 03/10/23 FINDINGS: Lines and Tubes: None Lungs: No focal consolidation. Pleura: No effusion. No pneumothorax. Cardiomediastinal contours: Unremarkable Bones: No acute osseous abnormality. IMPRESSION: No acute cardiopulmonary disease.
--- NOTE | 2024-11-18 21:13 | ECG ---
[facility] Test Date: 2024-11-18 Test Time: 21:08:24 Pat Name: JOSÉ LUIS TREJO Department: Room: 0295T Gender: F Ict Developer: MORENITA : [id number] Requested By: ADAN LIEBERMAN Order Number: [id number] Reading MD: Albert Zaman Measurements Intervals [place] Rate: 70 P: 17 MS: 123 QRS: 40 QRSD: 92 T: 63 QT: 381 QTc: 412 Interpretive Statements Sinus rhythm Electronically Signed On 11-21-2024 22:09:34 PDT by Albert Zaman Please click the below link to view image of tracing.
[2024-11-18 21:15] LABS: Hematocrit 40.1 % (36.0-46.0); Hemoglobin 13.7 g/dL (12.2-16.2); Mean Corpuscular Hemoglobin 27.8 pg (28.0-32.0); Mean Corpuscular Volume 81.3 fL (80.0-100.0); Nucleated Red Blood Cells % 0.0 %
[2024-11-18 21:20] LABS: Chloride 107 mmol/L (98-107); Sodium 143 mmol/L (136-145)
[2024-11-18 21:22] LABS: Anion Gap 9 (5-15); Calcium 9.2 mg/dL (8.7-10.4); Carbon Dioxide 27 mmol/L (20-31)
[2024-11-18 21:27] LABS: BUN/Creatinine Ratio 14.5 (10.0-20.0); Blood Urea Nitrogen 11 mg/dL (9-23); Glucose 95 mg/dL (74-106)
[2024-11-18 21:28] LABS: Potassium 3.4 mmol/L (3.5-5.1)
[2024-11-18] MEDS: POTASSIUM EFFERVESENT TAB 25 MEQ PO ONE (23:07)
[2024-11-18] MEDS: hydrALAZINE HCL 20 MG/ML VL IV ONE (23:12)
[2024-11-18 23:54] LABS: Urine Protein, UAD Negative (Negative)
[2024-11-19] VITALS (12 sets, daily range): BP systolic 133–180; BP diastolic 80–106; PULSE 66–97; RESP 16–18; TEMP 97.6–98.6; O2SAT 93–100
[2024-11-19] MEDS: LABETALOL HCL 20 MG/4 ML VL IV ONE
[2024-11-19] MEDS ORDERED: NITROGLYCERIN 0.4 MG SL TAB SL PRN (01:15)
[2024-11-19] MEDS ORDERED: ACETAMINOPHEN 325 MG TAB PO PRN (01:15)
[2024-11-19] MEDS ORDERED: MORPHINE SULFATE INJ 2 MG/ml SYRG IV PRN (01:15)
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
[2024-11-19 01:59] LABS: Alanine Aminotransferase 21 U/L (7-40); Albumin 4.5 g/dL (3.2-4.8); Alkaline Phosphatase 71 U/L (46-116); Magnesium 1.9 mg/dL (1.6-2.6); Total Protein 7.6 g/dL (5.7-8.2)
[2024-11-19 02:01] LABS: Bilirubin, Total 0.3 mg/dL (0.2-1.0)
[2024-11-19 02:13] LABS: Triglycerides 149 mg/dL (< 150)
[2024-11-19 02:15] LABS: Cholesterol 152 mg/dL (< 200); HDL Cholesterol 50 mg/dL (40-59)
[2024-11-19 02:20] LABS: Cannabinoid Screen, Urine Pos (NEGATIVE)
[2024-11-19 02:46] LABS: Bilirubin, Direct < 0.1 mg/dL (<0.3)
[2024-11-19 02:46] LABS: Amphetamine Screen, Urine Neg (NEGATIVE); Barbiturate Scree,Urine Neg (NEGATIVE); Benzodiazephine Screen, Urine Neg (NEGATIVE); Cocaine Screen, Urine Neg (NEGATIVE); Opiate Scree,Urine Neg (NEGATIVE); Phencyclidine Screen, Urine Neg (NEGATIVE)
[2024-11-19] MEDS: LISINOPRIL 20 MG TAB PO ONE (04:52)
[2024-11-19] MEDS ORDERED: SIMV10TA20 PO (05:07)
[2024-11-19] MEDS ORDERED: ERGO2000 PO (05:07)
[2024-11-19] MEDS ORDERED: PANT40T PO (05:07)
--- NOTE | 2024-11-19 06:25 | ECG ---
[facility] Test Date: 2024-11-18 Test Time: 20:15:59 Pat Name: JOSÉ LUIS TREJO Department: [facility] ED Patient ID: [id number] Room: 0295T A Gender: F [place]: LAMIN : 1990 Requested By: ADAN LIEBERMAN Order Number: [id number] Reading MD: Albert Zaman Measurements Intervals [place] Rate: 80 P: 46 TN: 125 QRS: 37 QRSD: 94 T: 66 QT: 357 QTc: 412 Interpretive Statements Sinus rhythm Electronically Signed On 11-21-2024 22:09:27 PDT by Albert Zaman Please click the below link to view image of tracing.
--- NOTE | 2024-11-19 08:25 | DVH ---
INDICATION: Rule out cholelithiasis TECHNIQUE: Multiple real-time sonographic images were obtained of the right upper quadrant. COMPARISON: CT CT AB PEL WO CON-NO ORAL OR IV on DOS: 11/10/23, US PELVIC on DOS: 11/10/23, US GALLBLAD PARUL on DOS: 11/09/23, CT CT AB PEL WO CON-NO ORAL OR IV on DOS: 07/20/23, US GALLBLADDER on DOS: 4 FINDINGS: The liver demonstrates increased echotexture without focal mass lesions. The liver measure s 17.8 cm. Probable focal fatty sparing in the region of the gallbladder fossa. There is no intrahepatic or extrahepatic ductal dilatation. The common duct measures 0.3 cm. The gallbladder is without evidence of stone or sludge. The gallbladder wall measures 0.2 cm and is w ithin normal limits. The right kidney measures 10.1 cm. The right kidney is normal in contour, size, and shape. The echoge nicity is normal. There is no hydronephrosis. The pancreas is not well visualized due to overlying bowel gas. IMPRESSION: No sonographic evidence of gallstones or acute cholecystitis. Hepatic steatosis and hepatomegaly.
[2024-11-19] MEDS: hydroCHLOROthiazide 25 MG TAB PO SCH (10:00)
[2024-11-19] MEDS ORDERED: DEXTROSE (50%) 50ML SYRG IV PRN (10:00)
[2024-11-19] MEDS ORDERED: ATORVASTATIN 20 MG TAB PO ONE (10:00)
[2024-11-19] MEDS: FOLIC ACID 1 MG TAB PO SCH (10:52)
[2024-11-19] MEDS: THIAMINE HCL 100 MG TAB PO SCH (10:52)
[2024-11-19] MEDS: ENOXAPARIN SOD 40 MG/0.4 ML SYRINGE SC SCH (10:53)
[2024-11-19] MEDS: PANTOPRAZOLE 40 MG/10 ML VIAL INJ IV ONE (11:03)
[2024-11-19] MEDS: InsuLIN REG 1unit/0.01ml Soln (100units/ml) SC SCH (11:30)
[2024-11-19] MEDS: ACCU-CHEK COMFORT CURVE STRIP VI SCH (11:30)
--- NOTE | 2024-11-19 11:32 | DVH ---
ULTRASOUND RENAL CLINICAL INDICATION: Hypertension TECHNIQUE: Real-time sonographic, duplex, and color Doppler images of the kidneys were obtained. FINDINGS: The right kidney measures 12 cm and is normal in size. The right renal echogenicity, contou r and cortical thickness are within normal limits. No hydronephrosis, large masses or perinephric flu id is seen. The left kidney measures 12 cm and is normal in size. The left renal echogenicity, contour, and corti juliana thickness are within normal limits. no hydronephrosis, large masses or perinephric fluid is seen. Subsequent Doppler interrogation of the kidneys was performed. Resistive indices and velocities withi n normal limits. IMPRESSION: Normal examination. [<reference, normal RI <.7>]
[2024-11-19 13:22] LABS: Hematocrit 44.1 % (36.0-46.0); Hemoglobin 15.3 g/dL (12.2-16.2); Mean Corpuscular Hemoglobin 28.0 pg (28.0-32.0); Mean Corpuscular Volume 80.7 fL (80.0-100.0); Nucleated Red Blood Cells % 0.1 %
[2024-11-19 13:29] LABS: Chloride 103 mmol/L (98-107); Potassium 3.7 mmol/L (3.5-5.1); Sodium 139 mmol/L (136-145)
[2024-11-19 13:30] LABS: Anion Gap 10 (5-15); Carbon Dioxide 26 mmol/L (20-31)
[2024-11-19 13:31] LABS: Calcium 9.5 mg/dL (8.7-10.4)
[2024-11-19 13:35] LABS: Glucose 102 mg/dL (74-106)
[2024-11-19 13:36] LABS: BUN/Creatinine Ratio 11.6 (10.0-20.0)
[2024-11-19 13:37] LABS: Blood Urea Nitrogen 8 mg/dL (9-23)
--- NOTE | 2024-11-19 13:38 | DVHPN2 ---
Changes from previous H/P or p: No Changes, Changes Objective Vitals Vital Signs Date Time Temp Pulse Resp B/P (MAP) Pulse Ox O2 Delivery O2 Flow Rate FiO2 11/19/24 10:30 156/95 (115) 11/19/24 08:00 18 Room Air* 0 21 11/19/24 04:30 98.1 72 99 98.1 Intake/Output Intake and Output 11/19/24 07:00 Intake Total 0 ml Output Total 0 ml Balance 0 ml Intake Oral 0 ml Output Urine Total 0 ml Medications Current Medications Medications Dose Ordered Sig/Enrique Route Start Time Stop Time Status Last Admin Dose Admin Acetaminophen 325 mg Q4HP PRN PO 11/19/24 01:15 Ondansetron HCl 4 mg Q4HP PRN IV 11/19/24 01:15 Morphine Sulfate 2 mg Q4HPRN PRN IV 11/19/24 01:15 Enoxaparin Sodium 40 mg DAILY SC 11/19/24 10:00 11/19/24 10:53 40 MG Nitroglycerin 0.4 mg Q5MINP PRN SL 11/19/24 01:15 Morphine Sulfate 2 mg Q30M PRN IV 11/19/24 01:15 Hydrochlorothiazide 25 mg DAILY PO 11/19/24 10:00 11/19/24 10:00 25 MG Lisinopril 20 mg DAILY PO 11/20/24 10:00 Thiamine HCl 100 mg DAILY PO 11/19/24 10:00 11/19/24 10:52 100 MG Folic Acid 1 mg DAILY PO 11/19/24 10:00 11/19/24 10:52 1 MG Aspirin 81 mg DAILY PO 11/19/24 10:00 11/19/24 10:53 81 MG Atorvastatin Calcium 40 mg HS PO 11/19/24 22:00 Ceftriaxone Sodium 50 ml @ 100 mls/hr DAILY@09 IV 11/20/24 09:00 Diagnostic Test (Pha) 1 strip ACHS 11/19/24 11:30 11/19/24 11:30 1 STRIP Insulin Human Regular ACHS SC 11/19/24 11:30 Dextrose 50 ml UD PRN IV 11/19/24 10:00 Laboratory Results Laboratory Tests 11/19/24 12:02 Chemistry Test 11/18/24 20:40 11/18/24 22:05 11/19/24 12:02 Calcium Level 9.2 mg/dL (8.7-10.4) Pending Albumin 4.5 g/dL (3.2-4.8) Magnesium Level 1.9 mg/dL (1.6-2.6) Phosphorus Level 3.0 mg/dL (2.4-5.1) Total Protein 7.6 g/dL (5.7-8.2) Lipid panel Test 11/18/24 22:05 Cholesterol Level 152 mg/dL (< 200) HDL Cholesterol 50 mg/dL (40-59) Triglycerides Level 149 mg/dL (< 150) LFT Test 11/18/24 22:05 Alanine Aminotransferase (ALT) 21 U/L (7-40) Alkaline Phosphatase 71 U/L (46-116) Aspartate Amino Transferase (AST) 14 U/L (13-40) Direct Bilirubin < 0.1 mg/dL (<0.3) Total Bilirubin 0.3 mg/dL (0.2-1.0) HgA1c, TSH Test 11/18/24 20:40 Hemoglobin A1c 5.7 % A1C (<5.7) Thyroid Stimulating Hormone (TSH) 3.87 uIU/mL (0.55-4.78) Urinalysis Test 11/18/24 23:00 Urine Color Light-yellow (Yellow) Urine Clarity Clear (Clear) Urine pH 6.0 (5.0-9.0) Urine Specific [place] 1.028 (1.001-1.035) Urine Protein Negative (Negative) Urine Ketones Negative (Negative) Urine Blood 1+ /uL (Negative) H Urine Nitrite Negative (Negative) Urine Bilirubin Negative (Negative) Urine Urobilinogen Normal mg/dL (Negative) Urine Leukocyte Esterase Trace /uL (Negative) Urine RBC 6 /hpf (0 - 4) Urine Microscopic WBC 3 /HPF (0-5) Urine Squamous Epithelial Cells Few /hpf (<5) Urine Bacteria None seen /hpf (None Seen) Urine Mucus Few (None Seen) Urine Glucose Normal mg/dL (Normal) Urine Test Negative (Negative) Labs and/or images reviewed: Labs reviewed by me, Image(s) reviewed by me Assessment/Plan Assessment/Plan Hypertensive urgency Ruled out hyperthyroidism Ruled out acute coronary syndrome GERD: Consult for GI Dr. Shaq Ty Sepsis secondary to UTI Complicated UTI Hypokalemia Hepatic steatosis Obesity Obstructive sleep apnea with requirement of CPAP History of TIA Hypertension Dyslipidemia Diabetes -controlled (hemoglobin A1c 5.7%) Polysubstance abuse Bipolar disorder Depression RN Lorin bedside Plan discussed with: Patient Date of Service: Nov 19, 2024 Billing Provider: MATIAS MARCH MD Common Visit Codes: [id number] INP/OBS CARE(HIGH) MATIAS MARCH MD Nov 19, 2024 13:38
[2024-11-19 13:39] LABS: Free T4 (Free Thyroxine) 1.07 ng/dL (0.89-1.76)
--- NOTE | 2024-11-19 14:33 | DVHCONRES ---
Date Seen: Nov 19, 2024 Resident Creating Document: HAWA LÓPEZ RESIDENT Referring Physician Dr. March Reason for Consultation Epigastric pain, history of GERD History of Present Illness Patient is a 34-year-old female with past medical history of hypertension, dyslipidemia, type 2 diabetes, hepatic steatosis with stage III fibrosis, alcohol use disorder in remission for the last 1 year, severe CESARIO, recurrent UTIs, chlamydia?, GERD, bipolar disorder, depression, hypothyroidism, who initially came to the ER for epigastric chest pain and uncontrolled blood pressure. At the time of my assessment, patient notes significant improvement in epigastric pain, she describes it as a heavy pressure-like sharp pain that has been going on for the past 1-2 months also associated with nausea in his hour taste in her mouth. Patient notes she had an episode of vomiting recently containing food. Of note, patient has a history of using ibuprofen 600 mg b.i.d.-t.i.d. for the last 3 months. Patient also notes she had unintentional weight loss of about 30 lb in the last 12 months. Last bowel movement was yesterday and normal, does note some nausea but no vomiting since being hospitalized. Past Medical History hypertension, dyslipidemia, type 2 diabetes, hepatic steatosis with stage III fibrosis, alcohol use disorder in remission for the last 1 year, severe CESARIO, recurrent UTIs, chlamydia?, GERD, bipolar disorder, depression, hypothyroidism Past Surgical History Appendectomy, cystostomy Family History: Asthma G8 MOTHER Cardiovascular disease G8 MOTHER Diabetes mellitus G8 MOTHER G8 FATHER Hypercholesterolemia G8 FATHER Hypertension G8 MOTHER G8 FATHER Social History Smoking: Quit 2 years ago, prior history of heavy use Alcohol: Prior history of heavy usage, quit 1 year ago Drugs: Uses marijuana Allergies: Coded Allergies: NO KNOWN ALLERGIES (Unverified , 05/17/17) Home Meds Active Scripts Nitrofurantoin Monohydrate Mac (Macrobid) 100 Mg Cap, 100 MG PO BID for 7 Days, #14 CAP Prov:WILLIE DUNN MD 07/03/24 Ibuprofen Micronized (MOTRIN TABLET) 600 Mg Tb, 600 MG PO TID PRN for 3 Days, #9 TAB *Black box warning-NSAIDS can increase risk of MA & hypertension, GI irritation, ulceration, bleed, perferation. Do not use post cardiac surgery. Use short duration/lowest effective dose. Prov:WILLIE DUNN MD 07/03/24 Lisinopril (Lisinopril) 20 Mg Tab, 1 TAB PO DAILY for 20 Days, #20 TAB 5 Refills Prov:WILLIE DUNN MD 07/03/24 Albuterol Sulfate (VENTOLIN MDI) 90 Mcg Ih, 2 PUFF IN Q4HPRN, #1 INH 0 Refills Prov:KATI DE LA TORRE 02/28/24 Acetaminophen (Acetaminophen) 500 Mg Tab, 500 MG PO Q4HPRN, #30 TAB 0 Refills Prov:KATI DE LA TORRE 02/28/24 Prednisone (Prednisone) 20 Mg Tab, 20 MG PO BID for 5 Days, #10 TAB 0 Refills Prov:KATI DE LA TORRE 02/28/24 Amoxicillin & Pot Clavulanate (Amoxicillin/Potassium Cla) 875 Mg Tab, 1 TAB PO BID for 7 Days, #14 TAB 0 Refills Prov:KATI DE LA TORRE 02/28/24 Folic Acid (Folic Acid) 1 Mg Tab, 1 MG PO DAILY, #30 TAB Prov:MATIAS MARCH MD 11/12/23 Thiamine HCl (Thiamine Hydrochloride) 100 Mg Tab, 100 MG PO DAILY, #30 TAB Prov:MATIAS MARCH MD 11/12/23 Ondansetron Odt 4MG Tab (ZOFRAN PO) 4 Mg Tb, 4 MG PO QID PRN, #20 TAB ODT TAB-DISSOLVE IN MOUTH, THEN SWALLOW Prov:MATIAS MARCH MD 11/12/23 Doxycycline Monohydrate (Doxycycline Monohydrate) 100 Mg Cap, 1 CAP PO BID, #28 CAP Prov:MATIAS MARCH MD 11/12/23 Albuterol Sulfate (Albuterol Sulfate Hfa) 108 Mcg/Act Aer, 108 MCG IN TID, #90 AER Prov:BLU JANG 07/21/23 Prednisone (Prednisone) 20 Mg Tab, 60 MG PO DAILY, #15 TAB Prov:BLU JANG 07/21/23 Nitrofurantoin (Nitrofurantoin) 100 Mg Cap, 1 CAP PO BID for 5 Days, #10 CAP Prov:BLU JANG 07/20/23 Hydrochlorothiazide (Hydrochlorothiazide) 25 Mg Tab, 1 TAB PO DAILY, #30 TAB 5 Refills Prov:SULAIMAN GARZA MD 10/31/22 Nitrofurantoin Monohydrate Mac (Macrobid) 100 Mg Cap, 100 MG PO BID for 5 Days, #10 CAP Prov:SULAIMAN GARZA MD 10/31/22 Amoxicillin & Pot Clavulanate (AUGMENTIN TABLET) 875 Mg Tb, 875 MG PO BID for 10 Days, #20 TAB Prov:GAMALIEL GILLESPIE 09/01/22 Oxycodone W/ Acetaminophen (Percocet 5/325MG) 1 Tab Tb, 1 TAB PO BID for 7 Days, #14 TAB Prov:GORAN CARTWRIGHT MD 08/18/22 Albuterol Sulfate (VENTOLIN MDI) 90 Mcg Ih, 90 MCG IN TIDP PRN for 30 Days, #1 INH Prov:NOLA ARCHIBALD MD 06/22/22 Prednisone (Prednisone) 20 Mg Tab, 20 MG PO QAM for 5 Days, #5 TAB Prov:NOLA ARCHIBALD MD 06/22/22 Ascorbic Acid (VITAMIN C TABLET) 500 Mg Tb, 500 MG PO DAILY for 30 Days, #30 TAB Prov:NOLA ARCHIBALD MD 06/22/22 Lisinopril (Lisinopril) 20 Mg Tab, 20 MG PO DAILY for 30 Days, #30 TAB 3 Refills Prov:NOLA ARCHIBALD MD 06/22/22 Hctz (Hydrochlorothiazide) 25 Mg Tab, 25 MG PO QAM for 30 Days, #30 TAB 3 Refills Prov:NOLA ARCHIBALD MD 06/22/22 Azithromycin (Azithromycin) 250 Mg Tab, 500 MG PO DAILY for 5 Days, #10 TAB Prov:NOLA ARCHIBALD MD 06/22/22 Reported Medications Ergocalciferol (VITAMIN D2) 2,000 Unit Tab, PO, TAB 11/19/24 Pantoprazole Sodium Sesquihydr (Pantoprazole Sodium) 40 Mg Tab, 40 MG PO, TAB 11/19/24 Simvastatin (Simvastatin) 10 Mg Tab, 10 MG PO, TAB 11/19/24 Quetiapine Fumerate (Seroquel) 25 Mg Tab, 10 MG PO HS for depression, TAB 06/20/22 Albuterol Sulfate (Albuterol Sulfate) 2 Mg Tab, 10 MG PO Q6HP PRN for SHORTNESS OF BREATH, MG 06/20/22 Hydrochlorothiazide (Hydrochlorothiazide) 12.5 Mg Cap, 5 MG PO BID for 30 Days, MG 06/20/22 Current Medications Current Medications Medications (Trade) Dose Ordered Sig/Enrique Route PRN Reason Start Time Stop Time Status Last Admin Acetaminophen (Tylenol Tablet) 325 mg Q4HP PRN PO MILD PAIN (1-3 PAIN SCALE) 11/19/24 01:15 Ondansetron HCl (Zofran) 4 mg Q4HP PRN IV NAUSEA / VOMITING 11/19/24 01:15 Morphine Sulfate 2 mg Q4HPRN PRN IV SEVERE PAIN (7-10 PAIN SCALE) 11/19/24 01:15 Enoxaparin Sodium (Lovenox) 40 mg DAILY SC 11/19/24 10:00 11/19/24 10:53 Nitroglycerin (Ntrostat Sublingual) 0.4 mg Q5MINP PRN SL FOR CHEST PAIN 11/19/24 01:15 Morphine Sulfate 2 mg Q30M PRN IV FOR CHEST PAIN 11/19/24 01:15 Hydrochlorothiazide (hydroCHLOROthiazide TABLET) 25 mg DAILY PO 11/19/24 10:00 11/19/24 10:00 Lisinopril (Zestril Tablet) 20 mg DAILY PO 11/20/24 10:00 Thiamine HCl 100 mg DAILY PO 11/19/24 10:00 11/19/24 10:52 Folic Acid 1 mg DAILY PO 11/19/24 10:00 11/19/24 10:52 Aspirin 81 mg DAILY PO 11/19/24 10:00 11/19/24 10:53 Atorvastatin Calcium (Lipitor) 40 mg HS PO 11/19/24 22:00 Ceftriaxone Sodium 50 ml @ 100 mls/hr DAILY@09 IV 11/20/24 09:00 Diagnostic Test (Pha) (Accu-Chek Comfort Curve T) 1 strip ACHS 11/19/24 11:30 11/19/24 11:30 Insulin Human Regular (InsuLIN R) ACHS SC 11/19/24 11:30 Dextrose 50 ml UD PRN IV Blood Sugar LESS THAN 60 11/19/24 10:00 Pantoprazole Sodium (Protonix) 40 mg BID IV 11/19/24 22:00 Clonidine HCl (Catapres Tablet) 0.2 mg Q6HP PRN PO SBP>160 11/19/24 13:45 Review of Systems Patient seen and examined at bedside. Patient is alert and oriented to time, place person and responding to all questions. Eyes: No Pain, No Vision change, No Conjunctivae inflammation, No Eyelid inflammation, No Other, No Redness ENT: No Ear pain, No Ear discharge, No Nose pain, No Nose discharge, No Nose congestion, No Mouth pain, No Mouth swelling, No Throat pain, No Throat swelling, No Other Cardiovascular: No Chest Pain, No Palpitations, No Orthopnea, No Paroxysmal No Dyspnea, No Edema, No Lt Headedness, No Other Respiratory: No Cough, No Dry, No Shortness of breath, No SOB with exertion, No Wheezing, No Hemoptysis, No Pleuritic Pain, No Sputum, No Other Gastrointestinal: Nausea, No Vomiting, Abdominal Pain, No Diarrhea, No Constipation, No Melena, No Hematochezia, No Other Genitourinary: No Dysuria, No Frequency, No Incontinence, No Hematuria, No Retention, No Other Musculoskeletal: No other, No neck pain, No shoulder pain, No arm pain, No back pain, No hand pain, No leg pain, No foot pain Skin: No Rash, No Lesions, No Jaundice, No Bruising, No Other Vital Signs Vital Signs Date Time Temp Pulse Resp B/P (MAP) Pulse Ox O2 Delivery O2 Flow Rate FiO2 11/19/24 13:00 98.3 73 17 150/90 (110) 93 98.3 11/19/24 08:00 Room Air* 0 21 Physical Exam General: Lucid, afebrile, mucosae are moist Cardiovascular: Normal S1 and S2. No murmurs, gallops or rubs Respiratory: Normal ventilation mechanics. Clear lung sounds on auscultation Abdomen: Soft, mild epigastric tenderness on palpation rest of abdomen nontender, no organomegaly, normal bowel sounds MSK/skin: Mobilizes 4 limbs. Skin is dry and warm Neurological: Oriented in 3 spheres. No motor no sensitive deficits. Pupils are isocoric and reactive Labs/Diagnostic Data Labs Test 11/19/24 12:02 11/19/24 11:26 11/18/24 23:00 11/18/24 22:05 Range/Units White Blood Count 10.9 H 4.4-10.8 10^3/uL Red Blood Count 5.47 H 4.0-5.20 10^6/uL Hemoglobin 15.3 12.2-16.2 g/dL Hematocrit 44.1 36.0-46.0 % Mean Corpuscular Volume 80.7 80.0-100.0 fL Mean Corpuscular Hemoglobin 28.0 28.0-32.0 pg Mean Corpuscular Hemoglobin Concent 34.8 32.0-36.0 g/dL Red Cell Distribution Width 13.1 11.8-14.3 % Platelet Count 281 140-450 10^3/uL Mean Platelet Volume 8.6 6.9-10.8 fL Neutrophils (%) (Auto) 67.1 37.0-80.0 % Lymphocytes (%) (Auto) 26.9 10.0-50.0 % Monocytes (%) (Auto) 4.8 0.0-12.0 % Eosinophils (%) (Auto) 0.9 0.0-7.0 % Basophils (%) (Auto) 0.3 0.0-2.0 % Neutrophils # (Auto) 7.3 1.6-8.6 10 ^3/uL Lymphocytes # (Auto) 2.9 0.4-5.4 10 ^3/uL Monocytes # (Auto) 0.5 0-1.3 10 ^3/uL Eosinophils # (Auto) 0.1 0-0.8 10 ^3/uL Basophils # (Auto) 0 0-0.2 10 ^3/uL Nucleated Red Blood Cells 0.1 % Sodium Level 139 136-145 mmol/L Potassium Level 3.7 3.5-5.1 mmol/L Chloride Level 103 98-107 mmol/L Carbon Dioxide Level 26 20-31 mmol/L Anion Gap 10 5-15 Blood Urea Nitrogen 8 L 9-23 mg/dL Creatinine 0.69 0.550-1.02 mg/dL Glomerular Filtration Rate Calc 115 >90 mL/min BUN/Creatinine Ratio 11.6 10.0-20.0 Serum Glucose 102 74-106 mg/dL Calcium Level 9.5 8.7-10.4 mg/dL Free Thyroxine (T4) Calculated 1.07 0.89-1.76 ng/dL Total Triiodothyronine (TT3) 1.08 0.60-1.81 ng/mL POC Glucose 103 70-106 mg/dl Urine Color Light-yellow Yellow Urine Clarity Clear Clear Urine pH 6.0 5.0-9.0 Urine Specific [place] 1.028 1.001-1.035 Urine Protein Negative Negative Urine Ketones Negative Negative Urine Blood 1+ H Negative /uL Urine Nitrite Negative Negative Urine Bilirubin Negative Negative Urine Urobilinogen Normal Negative mg/dL Urine Leukocyte Esterase Trace Negative /uL Urine RBC 6 0 - 4 /hpf Urine Microscopic WBC 3 0-5 /HPF Urine Squamous Epithelial Cells Few <5 /hpf Urine Bacteria None seen None Seen /hpf Urine Mucus Few None Seen Urine Glucose Normal Normal mg/dL Urine Test Negative Negative Urine Opiates Screen Neg NEGATIVE Urine Fentanyl Screen Neg NEGATIVE Urine Barbiturates Screen Neg NEGATIVE Urine Phencyclidine Screen Neg NEGATIVE Urine Amphetamines Screen Neg NEGATIVE Urine Benzodiazepines Screen Neg NEGATIVE Urine Cocaine Screen Neg NEGATIVE Urine Cannabinoids Screen Pos NEGATIVE Phosphorus Level 3.0 2.4-5.1 mg/dL Magnesium Level 1.9 1.6-2.6 mg/dL Total Bilirubin 0.3 0.2-1.0 mg/dL Direct Bilirubin < 0.1 <0.3 mg/dL Aspartate Amino Transferase (AST) 14 13-40 U/L Alanine Aminotransferase (ALT) 21 7-40 U/L Alkaline Phosphatase 71 46-116 U/L Troponin I High Sensitivity 3 L </=34 ng/L Total Protein 7.6 5.7-8.2 g/dL Albumin 4.5 3.2-4.8 g/dL Triglycerides Level 149 < 150 mg/dL Cholesterol Level 152 < 200 mg/dL LDL Cholesterol 96 < 100 mg/dL HDL Cholesterol 50 40-59 mg/dL Vitamin B12 Level 800 211-911 pg/mL Vitamin D 25-Hydroxy 85.5 30.0-100 ng/mL Test 11/18/24 20:40 Range/Units Hemoglobin A1c 5.7 <5.7 % A1C Thyroid Stimulating Hormone (TSH) 3.87 0.55-4.78 uIU/mL Treponema pallidum Antibody Non-reactive Negative HIV (1&2) Antibody Negative Negative Assessment Acute abdominal/epigastric pain History of GERD History of heavy NSAID usage Unintentional weight loss Hypertensive urgency Acute complicated UTI Sepsis due to above History of TIA Hepatic steatosis Type 2 diabetes Plan: Continue Protonix Carafate 1 g b.i.d. Counseled patient extensively to avoid using ibuprofen, NSAIDs, Motrin, Advil, Alleve Counseled patient on avoiding spicy foods, eating more than 4 hours before bedtime Scheduled for endoscopy tentatively tomorrow on 11/20/2024 Thank you so much for the opportunity to consult on your patient. GI team will follow the patient. In case of any questions or concerns please feel free to reach out. Plan discussed with Dr. Ty Plan discussed with: Patient, Other (RN) HAWA LÓPEZ RESIDENT Nov 19, 2024 14:33
[2024-11-19] MEDS: MORPHINE SULFATE INJ 2 MG/ml SYRG IV PRN (21:05)
[2024-11-19] MEDS: ATORVASTATIN 20 MG TAB PO SCH (21:05)
[2024-11-19] MEDS: ONDANSETRON HCL 4 MG/2 ML VIAL IV PRN (21:06)
[2024-11-19] MEDS: SUCRALFATE 1 GM/10 ML ORAL SUSP PO SCH (21:07)
[2024-11-19] MEDS: PANTOPRAZOLE 40 MG/10 ML VIAL INJ IV SCH (21:07)
[2024-11-20] VITALS (12 sets, daily range): BP systolic 138–156; BP diastolic 78–94; PULSE 59–97; RESP 15–18; TEMP 97.5–98; O2SAT 96–100
--- NOTE | 2024-11-20 09:08 | DVHSR ---
APPROVED REPORT EXAM: Two-dimensional and M-mode echocardiogram with Doppler and color Doppler. Blood Pressure: 133/80 mmHg INDICATION Hypertension RISK FACTORS Height: 63, Weight: 214 DIMENSIONS LVDd5.2 (3.8-5.7cm)LA (2D)3.9 (1.9-4.0cm)Aortic Root2.9 (2.0-3.7cm) LVDs3.5 (2.5-4.0cm)LA (MM) (1.9-4.0cm)Aortic Cusp Exc (1.5-2.0cm) EF (%) 60.0 (55-70%)Rt. Atrium4.3 (1.9-4.0cm)Asc. Aorta cm IVSd1.0 (0.7-1.1cm)RV (D) (1.8-2.4cm) PWd1.1 (0.7-1.1cm) Mitral Valve MitralMitral Stenosis E wave0.96m/sMV Mean GR.mmHg A wave0.68m/sMV Peak GR.88mmHg E/A ratio1.42D MVAcm2 DECEL [id number] 1/2 [id number] IVRTmsDop MVA2.01cm2 Aortic Valve Aortic ValveAortic Stenosis V10.91m/Zuri Mean GR.4mmHg V21.44m/Zuri Peak GR.8mmHg LVOT Diameter2.0 (1.8-2.4cm)Doppler AVA1.98cm2 Pulmonic Valve V20.88m/s Other Information Technically limited study due to body habitus. Conclusion LV EF IS 65% NORMAL VALVES NORMAL RV FUNCTION NO EFFUSION
[2024-11-20] MEDS: LISINOPRIL 20 MG TAB PO SCH (10:50)
--- NOTE | 2024-11-20 10:55 | DVHPN2 ---
Reviewed: Care Plan, H&P, Labs, Medications, Previous Orders, Radiology Changes from previous H/P or p: No Changes Objective Vitals Vital Signs Date Time Temp Pulse Resp B/P (MAP) Pulse Ox O2 Delivery O2 Flow Rate FiO2 11/20/24 08:55 98.0 65 17 147/88 (107) 99 98.0 11/20/24 06:28 Room Air 0.0 11/20/24 06:28 21 Intake/Output Intake and Output 11/20/24 06:59 Intake Total 0 ml Balance 0 ml Intake Oral 0 ml # Voids 4 Medications Current Medications Medications Dose Ordered Sig/Enrique Route Start Time Stop Time Status Last Admin Dose Admin Acetaminophen 325 mg Q4HP PRN PO 11/19/24 01:15 Ondansetron HCl 4 mg Q4HP PRN IV 11/19/24 01:15 11/19/24 21:06 4 MG Morphine Sulfate 2 mg Q4HPRN PRN IV 11/19/24 01:15 11/19/24 21:05 2 MG Enoxaparin Sodium 40 mg DAILY SC 11/19/24 10:00 11/19/24 10:53 40 MG Nitroglycerin 0.4 mg Q5MINP PRN SL 11/19/24 01:15 Morphine Sulfate 2 mg Q30M PRN IV 11/19/24 01:15 Hydrochlorothiazide 25 mg DAILY PO 11/19/24 10:00 11/19/24 10:00 25 MG Lisinopril 20 mg DAILY PO 11/20/24 10:00 Thiamine HCl 100 mg DAILY PO 11/19/24 10:00 11/19/24 10:52 100 MG Folic Acid 1 mg DAILY PO 11/19/24 10:00 11/19/24 10:52 1 MG Aspirin 81 mg DAILY PO 11/19/24 10:00 11/19/24 10:53 81 MG Atorvastatin Calcium 40 mg HS PO 11/19/24 22:00 11/19/24 21:05 40 MG Ceftriaxone Sodium 50 ml @ 100 mls/hr DAILY@09 IV 11/20/24 09:00 Diagnostic Test (Pha) 1 strip ACHS 11/19/24 11:30 11/20/24 06:21 1 STRIP Insulin Human Regular ACHS SC 11/19/24 11:30 Dextrose 50 ml UD PRN IV 11/19/24 10:00 Pantoprazole Sodium 40 mg BID IV 11/19/24 22:00 11/19/24 21:07 40 MG Clonidine HCl 0.2 mg Q6HP PRN PO 11/19/24 13:45 Sucralfate 1 gm BID@0600,2200 PO 11/19/24 22:00 11/19/24 21:07 1 GM Laboratory Results Laboratory Tests 11/19/24 12:02 Chemistry Test 11/19/24 12:02 Calcium Level 9.5 mg/dL (8.7-10.4) Urinalysis Test 11/18/24 23:00 Urine Color Light-yellow (Yellow) Urine Clarity Clear (Clear) Urine pH 6.0 (5.0-9.0) Urine Specific [place] 1.028 (1.001-1.035) Urine Protein Negative (Negative) Urine Ketones Negative (Negative) Urine Blood 1+ /uL (Negative) H Urine Nitrite Negative (Negative) Urine Bilirubin Negative (Negative) Urine Urobilinogen Normal mg/dL (Negative) Urine Leukocyte Esterase Trace /uL (Negative) Urine RBC 6 /hpf (0 - 4) Urine Microscopic WBC 3 /HPF (0-5) Urine Squamous Epithelial Cells Few /hpf (<5) Urine Bacteria None seen /hpf (None Seen) Urine Mucus Few (None Seen) Urine Glucose Normal mg/dL (Normal) Urine Test Negative (Negative) Microbiology Microbiology Date/Time Source Procedure Growth Status 11/18/24 23:00 Voided Urine Urine Culture - Preliminary Resulted Labs and/or images reviewed: Labs reviewed by me, Image(s) reviewed by me Assessment/Plan Assessment/Plan Acute abdominal/epigastric pain History of GERD pantoprazole Carafate, GI consult by Dr. Shaq Ty appreciated., getting EGD today History of heavy NSAID usage Unintentional weight loss Hypertensive urgency Acute complicated UTI Sepsis due to above History of TIA Depression Bipolar Polysubstance abuse Hepatic steatosis Type 2 diabetes SANJEEV Morales at bedside Plan discussed with: Patient My Orders Orders - MATIAS MARCH MD Procedure Category Date Status Time Pantoprazole PHA 11/19/24 In Process (Protonix) 22:00 Clonidine Hcl Tablet PHA 11/19/24 In Process (Catapres Tablet) 13:45 * Gi D[facility] [employer] Operator CONS 11/19/24 Transmitted 16:01 Date of Service: Nov 20, 2024 Billing Provider: MATIAS MARCH MD Common Visit Codes: [id number] INP/OBS CARE(HIGH) MATIAS MARCH MD Nov 20, 2024 10:55
[2024-11-20 11:13] LABS: Hepatitis C Antibody Negative (Negative)
[2024-11-20 11:14] LABS: Hepatitis B Surface Antigen Negative (Negative)
[2024-11-20] MEDS ORDERED: LIDOCAINE VISCOUS 2% 15ML UD ONE (13:14)
[2024-11-20] MEDS ORDERED: MIDAZOLAM HCL 2MG/2ML 2ml VIAL (1mg/ml) ONE (13:33)
[2024-11-20] MEDS ORDERED: fentaNYL CITRATE 100 MCG/2 ML VL ONE (13:33)
[2024-11-20] MEDS ORDERED: PROPOFOL 10 MG/ML 20 ML IV ONE (13:43)
--- NOTE | 2024-11-20 13:57 | DVHOP2 ---
Operative Report DATE OF OPERATION: 11/20/24 PROCEDURE: Upper Endoscopy with biopsy. PREOPERATIVE INDICATION: The patient is a 34 -year-old female undergoing endoscopy for chronic GERD and atypical chest pain POSTOPERATIVE DIAGNOSES: 1. 0.5 cm sliding-type hiatal hernia with no significant erosive esophagitis 2. Minimal gastritis otherwise normal examination up to the 2nd and 3rd part of the duodenum PROCEDURE PERFORMED BY: Moraima Ty GI NURSE: Olimpia SCOPE: Olympus videoendoscope. ASA CLASS: 3 PREOPERATIVE MEDICATIONS: Mac scott, Dr. Dia PROCEDURE IN DETAIL: After obtaining an informed consent, the patient was placed on left lateral decubitus position. The patient was then sedated with the above medications. A bite block was placed between her teeth. The endoscope was then passed through the oropharynx, into the esophagus, and through the stomach and pylorus up to the second and third part of the duodenum. The endoscope was then withdrawn. The 2nd and 3rd part of the duodenum and the duodenal bulb were normal. Duodenal biopsies were obtained The pre-pyloric area antrum and body showed minimal gastritis. Gastric biopsies were obtained. On retroflexion the fundus cardia and angularis were normal. The endoscope was then withdrawn into distal esophagus Patient had a 5 mm extension of columnar epithelium into the distal esophagus with slightly irregular squamocolumnar junction no significant erosive esophagitis GE junction biopsies were obtained. The remaining distal and proximal esophagus and oropharynx were unremarkable The patient tolerated the procedure well without difficulty. COMPLICATIONS : None SPECIMENS: Duodenal biopsies Gastric biopsies GE junction biopsies DISPOSITION: Transfer back to the floor Stable PLAN: 1. Await for biopsy result 2. Will place pt on Protonix 40 mg p.o. daily 3. Resume GI soft diet advance as tolerated 4. Outpatient follow up with me in 4-6 weeks to review results and discuss further management MORAIMA TY MD Nov 20, 2024 13:57
[2024-11-20] MEDS: MELATONIN 5 MG TAB PO PRN (21:21)
[2024-11-20] MEDS: MORPHINE SULFATE 4 MG/ML SYR/VIAL IV PRN (22:03)
[2024-11-21] VITALS (9 sets, daily range): BP systolic 99–134; BP diastolic 45–76; PULSE 61–92; RESP 15–18; TEMP 36.6; O2SAT 95–100
--- NOTE | 2024-11-21 09:21 | ECG ---
[facility] Test Date: 2024-11-20 Test Time: 14:11:00 Pat Name: JOSÉ LUIS TREJO Department: Room: 0295T A Gender: F C.O.D. Clerk: JOHAN : 1990 Requested By: ARNAV FONSECA Order Number: [id number] Reading MD: Albert Zaman Measurements Intervals [place] Rate: 68 P: 42 [place]: 122 QRS: 20 QRSD: 100 T: 43 QT: 416 QTc: 442 Interpretive Statements Normal sinus rhythm Electronically Signed On 11-21-2024 21:09:54 PDT by Albert Zaman Please click the below link to view image of tracing.
--- NOTE | 2024-11-21 09:51 | DVHPN2 ---
Progress Note Date Seen: Nov 21, 2024 Resident Creating Document: HAWA LÓPEZ RESIDENT Medical Necessity Reason Pt with a Central, PICC or Fol: No Subjective Review of Systems Patient seen and examined at bedside At the time of my assessment, patient denies any active ongoing epigastric or abdominal pain Denies any vomiting, does note to have nausea Objective vital signs Vital Sign Date Time Temp Pulse Resp B/P (MAP) Pulse Ox O2 Delivery O2 Flow Rate FiO2 11/21/24 09:38 81 18 119/76 11/21/24 08:15 97.8 97 97.8 11/21/24 08:00 Room Air* 0 21 Total Intake and Output 11/20/24 11/20/24 11/21/24 15:00 23:00 07:00 Intake Total 60 ml 0 ml 550 ml Output Total 3 ml Balance 60 ml -3 ml 550 ml medications Current Medications Medications Dose Ordered Sig/Enrique Route Start Time Stop Time Status Last Admin Dose Admin Acetaminophen 325 mg Q4HP PRN PO 11/19/24 01:15 Ondansetron HCl 4 mg Q4HP PRN IV 11/19/24 01:15 11/21/24 04:27 4 MG Enoxaparin Sodium 40 mg DAILY SC 11/19/24 10:00 11/21/24 09:38 40 MG Nitroglycerin 0.4 mg Q5MINP PRN SL 11/19/24 01:15 Morphine Sulfate 2 mg Q30M PRN IV 11/19/24 01:15 Hydrochlorothiazide 25 mg DAILY PO 11/19/24 10:00 11/21/24 09:38 25 MG Lisinopril 20 mg DAILY PO 11/20/24 10:00 11/21/24 09:38 20 MG Thiamine HCl 100 mg DAILY PO 11/19/24 10:00 11/21/24 09:37 100 MG Folic Acid 1 mg DAILY PO 11/19/24 10:00 11/21/24 09:37 1 MG Aspirin 81 mg DAILY PO 11/19/24 10:00 11/21/24 09:37 81 MG Atorvastatin Calcium 40 mg HS PO 11/19/24 22:00 11/20/24 21:20 40 MG Ceftriaxone Sodium 50 ml @ 100 mls/hr DAILY@09 IV 11/20/24 09:00 11/21/24 09:00 100 MLS/HR Diagnostic Test (Pha) 1 strip ACHS 11/19/24 11:30 11/21/24 06:28 1 STRIP Insulin Human Regular ACHS SC 11/19/24 11:30 Dextrose 50 ml UD PRN IV 11/19/24 10:00 Pantoprazole Sodium 40 mg BID IV 11/19/24 22:00 11/21/24 09:37 40 MG Clonidine HCl 0.2 mg Q6HP PRN PO 11/19/24 13:45 Sucralfate 1 gm BID@0600,2200 PO 11/19/24 22:00 11/21/24 06:01 1 GM Melatonin 10 mg QHSP PRN PO 11/20/24 22:00 11/20/24 21:21 10 MG Morphine Sulfate 2 mg Q4HPRN PRN IV 11/20/24 21:45 11/21/24 09:38 2 MG Examination Acute abdominal/epigastric pain Hiatal hernia Mild to minimal gastritis History of GERD History of heavy NSAID usage Unintentional weight loss Hypertensive urgency Acute complicated UTI Sepsis due to above History of TIA Hepatic steatosis Type 2 diabetes Plan: Discussed details of endoscopy with the patient in great detail, all questions answered and concerns were addressed. Continue Protonix Carafate 1 g b.i.d. Counseled patient extensively to avoid using ibuprofen, NSAIDs, Motrin, Advil, Alleve Counseled patient on avoiding spicy foods, eating more than 4 hours before bedtime Outpatient follow up with GI in 4-6 weeks to review biopsy results and discuss further management Thank you so much for the opportunity to consult on your patient. GI team will follow the patient. In case of any questions or concerns please feel free to reach out. Plan discussed with Dr. Ty laboratory and microbiology Laboratory Tests 11/19/24 12:02 Test 11/19/24 12:02 Range/Units Serum Glucose 102 74-106 mg/dL Microbiology Date/Time Source Procedure Growth Status 11/19/24 12:50 Blood Blood Culture - Preliminary NO GROWTH AFTER 24 HOURS OF INCUBATION. Resulted 11/18/24 23:00 Voided Urine Urine Culture - Preliminary Resulted Labs and/or images reviewed: Labs reviewed by me, Image(s) reviewed by me Problem List/Assessment/Plan Plan discussed with: Patient, Other (RN) HAWA LÓPEZ RESIDENT Nov 21, 2024 09:51
[2024-11-21] MEDS ORDERED: TRAM-626 PO (10:52)
[2024-11-21] MEDS ORDERED: HYDR25TA5 PO (10:52)
[2024-11-21] MEDS ORDERED: PANT40T PO (10:52)
[2024-11-21] MEDS ORDERED: SUCR1TAB31 PO (10:56)
--- NOTE | 2024-11-21 10:59 | DVHPN2 ---
Reviewed: Care Plan, H&P, Labs, Medications, Previous Orders, Radiology Changes from previous H/P or p: No Changes Objective Vitals Vital Signs Date Time Temp Pulse Resp B/P (MAP) Pulse Ox O2 Delivery O2 Flow Rate FiO2 11/21/24 09:38 81 18 119/76 11/21/24 08:15 97.8 97 97.8 11/21/24 08:00 Room Air* 0 21 Intake/Output Intake and Output 11/21/24 07:00 Intake Total 610 ml Output Total 3 ml Balance 607 ml Intake Oral 550 ml IV Total 60 ml Output Urine Total 3 ml # Voids 1 Medications Current Medications Medications Dose Ordered Sig/Enrique Route Start Time Stop Time Status Last Admin Dose Admin Acetaminophen 325 mg Q4HP PRN PO 11/19/24 01:15 Ondansetron HCl 4 mg Q4HP PRN IV 11/19/24 01:15 11/21/24 04:27 4 MG Enoxaparin Sodium 40 mg DAILY SC 11/19/24 10:00 11/21/24 09:38 40 MG Nitroglycerin 0.4 mg Q5MINP PRN SL 11/19/24 01:15 Morphine Sulfate 2 mg Q30M PRN IV 11/19/24 01:15 Hydrochlorothiazide 25 mg DAILY PO 11/19/24 10:00 11/21/24 09:38 25 MG Lisinopril 20 mg DAILY PO 11/20/24 10:00 11/21/24 09:38 20 MG Thiamine HCl 100 mg DAILY PO 11/19/24 10:00 11/21/24 09:37 100 MG Folic Acid 1 mg DAILY PO 11/19/24 10:00 11/21/24 09:37 1 MG Aspirin 81 mg DAILY PO 11/19/24 10:00 11/21/24 09:37 81 MG Atorvastatin Calcium 40 mg HS PO 11/19/24 22:00 11/20/24 21:20 40 MG Ceftriaxone Sodium 50 ml @ 100 mls/hr DAILY@09 IV 11/20/24 09:00 11/21/24 09:00 100 MLS/HR Diagnostic Test (Pha) 1 strip ACHS 11/19/24 11:30 11/21/24 06:28 1 STRIP Insulin Human Regular ACHS SC 11/19/24 11:30 Dextrose 50 ml UD PRN IV 11/19/24 10:00 Pantoprazole Sodium 40 mg BID IV 11/19/24 22:00 11/21/24 09:37 40 MG Clonidine HCl 0.2 mg Q6HP PRN PO 11/19/24 13:45 Sucralfate 1 gm BID@0600,2200 PO 11/19/24 22:00 11/21/24 06:01 1 GM Melatonin 10 mg QHSP PRN PO 11/20/24 22:00 11/20/24 21:21 10 MG Morphine Sulfate 2 mg Q4HPRN PRN IV 11/20/24 21:45 11/21/24 09:38 2 MG Laboratory Results Laboratory Tests 11/19/24 12:02 Urinalysis Test 11/18/24 23:00 Urine Color Light-yellow (Yellow) Urine Clarity Clear (Clear) Urine pH 6.0 (5.0-9.0) Urine Specific [place] 1.028 (1.001-1.035) Urine Protein Negative (Negative) Urine Ketones Negative (Negative) Urine Blood 1+ /uL (Negative) H Urine Nitrite Negative (Negative) Urine Bilirubin Negative (Negative) Urine Urobilinogen Normal mg/dL (Negative) Urine Leukocyte Esterase Trace /uL (Negative) Urine RBC 6 /hpf (0 - 4) Urine Microscopic WBC 3 /HPF (0-5) Urine Squamous Epithelial Cells Few /hpf (<5) Urine Bacteria None seen /hpf (None Seen) Urine Mucus Few (None Seen) Urine Glucose Normal mg/dL (Normal) Urine Test Negative (Negative) Microbiology Microbiology Date/Time Source Procedure Growth Status 11/19/24 12:50 Blood Blood Culture - Preliminary NO GROWTH AFTER 24 HOURS OF INCUBATION. Resulted 11/18/24 23:00 Voided Urine Urine Culture - Preliminary Resulted Labs and/or images reviewed: Labs reviewed by me, Image(s) reviewed by me Assessment/Plan Assessment/Plan Acute abdominal/epigastric pain episode Carafate, Mild Gastroduodenitis by EGD by Dr. Shaq Ty History of heavy NSAID usage, counseled Hypertensive urgency resolved Acute UTI blood cultures negative urine cultures x-ray Sepsis due to above History of TIA Depression Bipolar Polysubstance abuse Hepatic steatosis Type 2 diabetes SANJEEV Jang at bedside Plan discussed with: Patient Date of Service: Nov 21, 2024 Billing Provider: MATIAS MARCH MD Common Visit Codes: [id number] INP/OBS CARE(HIGH) MATIAS AMRCH MD Nov 21, 2024 10:58
--- NOTE | 2024-11-21 11:02 | DVHDS2 ---
Discharge Summary Date of Admission Nov 19, 2024 at 01:15 Date of Discharge: Nov 21, 2024 Admitting Diagnosis Epigastric pain Wounds: EGD Labs/Diagnostic Data: Laboratory Results Test 11/21/24 06:00 11/19/24 12:02 11/18/24 23:00 11/18/24 22:05 POC Glucose 121 mg/dl (70-106) White Blood Count 10.9 10^3/uL (4.4-10.8) Red Blood Count 5.47 10^6/uL (4.0-5.20) Hemoglobin 15.3 g/dL (12.2-16.2) Hematocrit 44.1 % (36.0-46.0) Mean Corpuscular Volume 80.7 fL (80.0-100.0) Mean Corpuscular Hemoglobin 28.0 pg (28.0-32.0) Mean Corpuscular Hemoglobin Concent 34.8 g/dL (32.0-36.0) Red Cell Distribution Width 13.1 % (11.8-14.3) Platelet Count 281 10^3/uL (140-450) Mean Platelet Volume 8.6 fL (6.9-10.8) Neutrophils (%) (Auto) 67.1 % (37.0-80.0) Lymphocytes (%) (Auto) 26.9 % (10.0-50.0) Monocytes (%) (Auto) 4.8 % (0.0-12.0) Eosinophils (%) (Auto) 0.9 % (0.0-7.0) Basophils (%) (Auto) 0.3 % (0.0-2.0) Neutrophils # (Auto) 7.3 10 ^3/uL (1.6-8.6) Lymphocytes # (Auto) 2.9 10 ^3/uL (0.4-5.4) Monocytes # (Auto) 0.5 10 ^3/uL (0-1.3) Eosinophils # (Auto) 0.1 10 ^3/uL (0-0.8) Basophils # (Auto) 0 10 ^3/uL (0-0.2) Nucleated Red Blood Cells 0.1 % Sodium Level 139 mmol/L (136-145) Potassium Level 3.7 mmol/L (3.5-5.1) Chloride Level 103 mmol/L (98-107) Carbon Dioxide Level 26 mmol/L (20-31) Anion Gap 10 (5-15) Blood Urea Nitrogen 8 mg/dL (9-23) Creatinine 0.69 mg/dL (0.550-1.02) Glomerular Filtration Rate Calc 115 mL/min (>90) BUN/Creatinine Ratio 11.6 (10.0-20.0) Serum Glucose 102 mg/dL (74-106) Calcium Level 9.5 mg/dL (8.7-10.4) Free Thyroxine (T4) Calculated 1.07 ng/dL (0.89-1.76) Total Triiodothyronine (TT3) 1.08 ng/mL (0.60-1.81) Hepatitis A IgM Antibody Negative Hepatitis B Surface Antigen Negative (Negative) Hepatitis B Core IgM Antibody Negative (Negative) Hepatitis C Antibody Negative (Negative) Urine Color Light-yellow (Yellow) Urine Clarity Clear (Clear) Urine pH 6.0 (5.0-9.0) Urine Specific [place] 1.028 (1.001-1.035) Urine Protein Negative (Negative) Urine Ketones Negative (Negative) Urine Blood 1+ /uL (Negative) Urine Nitrite Negative (Negative) Urine Bilirubin Negative (Negative) Urine Urobilinogen Normal mg/dL (Negative) Urine Leukocyte Esterase Trace /uL (Negative) Urine RBC 6 /hpf (0 - 4) Urine Microscopic WBC 3 /HPF (0-5) Urine Squamous Epithelial Cells Few /hpf (<5) Urine Bacteria None seen /hpf (None Seen) Urine Mucus Few (None Seen) Urine Glucose Normal mg/dL (Normal) Urine Test Negative (Negative) Urine Opiates Screen Neg (NEGATIVE) Urine Fentanyl Screen Neg (NEGATIVE) Urine Barbiturates Screen Neg (NEGATIVE) Urine Phencyclidine Screen Neg (NEGATIVE) Urine Amphetamines Screen Neg (NEGATIVE) Urine Benzodiazepines Screen Neg (NEGATIVE) Urine Cocaine Screen Neg (NEGATIVE) Urine Cannabinoids Screen Pos (NEGATIVE) Phosphorus Level 3.0 mg/dL (2.4-5.1) Magnesium Level 1.9 mg/dL (1.6-2.6) Total Bilirubin 0.3 mg/dL (0.2-1.0) Direct Bilirubin < 0.1 mg/dL (<0.3) Aspartate Amino Transferase (AST) 14 U/L (13-40) Alanine Aminotransferase (ALT) 21 U/L (7-40) Alkaline Phosphatase 71 U/L (46-116) Troponin I High Sensitivity 3 ng/L (</=34) Total Protein 7.6 g/dL (5.7-8.2) Albumin 4.5 g/dL (3.2-4.8) Triglycerides Level 149 mg/dL (< 150) Cholesterol Level 152 mg/dL (< 200) LDL Cholesterol 96 mg/dL (< 100) HDL Cholesterol 50 mg/dL (40-59) Vitamin B12 Level 800 pg/mL (211-911) Vitamin D 25-Hydroxy 85.5 ng/mL (30.0-100) Test 11/18/24 20:40 Hemoglobin A1c 5.7 % A1C (<5.7) Thyroid Stimulating Hormone (TSH) 3.87 uIU/mL (0.55-4.78) Treponema pallidum Antibody Non-reactive (Negative) HIV (1&2) Antibody Negative (Negative) Other Laboratory Tests 11/19/24 12:02 Brief Hx & Hospital Course: 34-year-old female with a history of NSAIDs use hypotension TIA depression bipolar polysubstance abuse hepatic steatosis type 2 diabetes came in complaining of epigastric abdominal pain. The placed on pantoprazole and Carafate EGD by Dr. Shaq Ty showed mild gastric duodenitis mild UTI treated with the Rocephin. Patient being discharged home. Prescription for pantoprazole Carafate tramadol hydrochlorothiazide transmitted to the pharmacy. She will follow up with the primary Dr and GI Dr. Shaq Ty Consults/Reason for consult GI Dr. Shaq Ty Operations or Procedures EGD Condition at Discharge: Fair Final Diagnosis/Problems List Acute abdominal/epigastric pain episode Carafate, Mild Gastroduodenitis by EGD by Dr. Shaq Ty History of heavy NSAID usage, counseled Hypertensive urgency resolved Acute UTI blood cultures negative urine cultures x-ray Sepsis due to above History of TIA Depression Bipolar Polysubstance abuse Hepatic steatosis Type 2 diabetes Discharge Disposition: Home Discharge Instruct/Medications Diet: Cardiac 2g Na,low cholest Activity: Light activity Follow Up/Referral: Follow up with your primary Dr Follow up with the GI Dr. Shaq Ty in two weeks Medications: Pantoprazole Carafate Tramadol Hydrochlorothiazide Transmitted to pharmacy Scheduled Acetaminophen (Acetaminophen), 500 MG PO Q4HPRN Albuterol Sulfate (Albuterol Sulfate Hfa), 108 MCG IN TID Albuterol Sulfate (Ventolin Mdi), 2 PUFF IN Q4HPRN Amoxicillin & Pot Clavulanate (Augmentin Tablet), 875 MG PO BID Amoxicillin & Pot Clavulanate (Amoxicillin/Potassium Cla), 1 TAB PO BID Ascorbic Acid (Vitamin C Tablet), 500 MG PO DAILY Azithromycin (Azithromycin), 500 MG PO DAILY Doxycycline Monohydrate (Doxycycline Monohydrate), 1 CAP PO BID Folic Acid (Folic Acid), 1 MG PO DAILY Hctz (Hydrochlorothiazide), 25 MG PO QAM Hctz (Hydrochlorothiazide), 25 MG PO DAILY Hydrochlorothiazide (Hydrochlorothiazide), 5 MG PO BID, (Reported) Hydrochlorothiazide (Hydrochlorothiazide), 1 TAB PO DAILY Lisinopril (Lisinopril), 20 MG PO DAILY Lisinopril (Lisinopril), 1 TAB PO DAILY Nitrofurantoin (Nitrofurantoin), 1 CAP PO BID Nitrofurantoin Monohydrate Mac (Macrobid), 100 MG PO BID Nitrofurantoin Monohydrate Mac (Macrobid), 100 MG PO BID Oxycodone W/ Acetaminophen (Percocet 5/325MG), 1 TAB PO BID Pantoprazole Sodium Sesquihydr (Pantoprazole Sodium), 40 MG PO DAILY Prednisone (Prednisone), 20 MG PO QAM Prednisone (Prednisone), 60 MG PO DAILY Prednisone (Prednisone), 20 MG PO BID Quetiapine Fumerate (Seroquel), 10 MG PO HS, (Reported) Sucralfate (Carafate), 1 GM PO QID Thiamine HCl (Thiamine Hydrochloride), 100 MG PO DAILY Scheduled PRN Albuterol Sulfate (Albuterol Sulfate), 10 MG PO Q6HP PRN for SHORTNESS OF BREATH, (Reported) Albuterol Sulfate (Ventolin Mdi), 90 MCG IN TIDP PRN Ibuprofen Micronized (Motrin Tablet), 600 MG PO TID PRN Ondansetron Odt 4MG Tab (Zofran Po), 4 MG PO QID PRN Tramadol HCl (Tramadol HCl), 50 MG PO QID PRN Miscellaneous Medications Ergocalciferol (Vitamin D2), Unknown Dose PO, (Reported) Pantoprazole Sodium Sesquihydr (Pantoprazole Sodium), 40 MG PO, (Reported) Simvastatin (Simvastatin), 10 MG PO, (Reported) 35 (Time taken for discharge summary 35 minutes) Discharge Statement: "Patient was advised to return to the ER or call 911 if any headaches, dizziness, shortness of breath, chest pain, abdominal pain, bleeding, fevers, or worsening of medical condition. Patient was counseled about treatment plan, medications, possible side effects, patientverbalized understanding. All questions were answered to the best of my ability. This discharge took greater then 30 minutes in planning, reviewing documentation, counseling the patient, and discussing with other team members." ASSESSMENT ASSESSMENT Hospital Course Improved Assessment Acute abdominal/epigastric pain episode Carafate, Mild Gastroduodenitis by EGD by Dr. Sahq Ty History of heavy NSAID usage, counseled Hypertensive urgency resolved Acute UTI blood cultures negative urine cultures x-ray Sepsis due to above History of TIA Depression Bipolar Polysubstance abuse Hepatic steatosis Type 2 diabetes Date of Service: Nov 21, 2024 Billing Provider: MATIAS MARCH MD Common Visit Codes: [id number] DISCH DAY >30min MATIAS MARCH MD Nov 21, 2024 11:02
== END 2024-11-21 13:49 | disposition home or self-care (01) | DRG 720 ==
LOC: ER 20:11 → OVERFLOW 11-19 01:15 → TELE-WESTW 11-19 03:49
PROVIDERS: ADMIT Family Medicine; ATTEND Family Medicine
PROC: 5A09357 Assistance with Respiratory Ventilation, Less than 24 Consecutive Hours, Continuous Positive Airway Pressure (ICD-10-PCS; 2024-11-19)
PROC: 0DB68ZX Excision of Stomach, Via Natural or Artificial Opening Endoscopic, Diagnostic (ICD-10-PCS; 2024-11-20)
PROC: 0DB48ZX Excision of Esophagogastric Junction, Via Natural or Artificial Opening Endoscopic, Diagnostic (ICD-10-PCS; 2024-11-20)
PROC: 5A09357 Assistance with Respiratory Ventilation, Less than 24 Consecutive Hours, Continuous Positive Airway Pressure (ICD-10-PCS; 2024-11-20)
PROC: 0DB98ZX Excision of Duodenum, Via Natural or Artificial Opening Endoscopic, Diagnostic (ICD-10-PCS; principal; 2024-11-20 13:22)
DX: A41.9 Sepsis, unspecified organism (principal); I16.0 Hypertensive urgency; N39.0 Urinary tract infection, site not specified; E87.6 Hypokalemia; K76.0 Fatty (change of) liver, not elsewhere classified; E66.9 Obesity, unspecified; G47.33 Obstructive sleep apnea (adult) (pediatric); E78.5 Hyperlipidemia, unspecified; E11.9 Type 2 diabetes mellitus without complications; F31.9 Bipolar disorder, unspecified; K21.9 Gastro-esophageal reflux disease without esophagitis; K29.80 Duodenitis without bleeding; K29.70 Gastritis, unspecified, without bleeding; I10 Essential (primary) hypertension; J45.909 Unspecified asthma, uncomplicated; F17.210 Nicotine dependence, cigarettes, uncomplicated; K29.90 Gastroduodenitis, unspecified, without bleeding; K44.9 Diaphragmatic hernia without obstruction or gangrene; Z79.2 Long term (current) use of antibiotics; Z79.899 Other long term (current) drug therapy; Z82.49 Family history of ischemic heart disease and other diseases of the circulatory system; Z86.73 Personal history of transient ischemic attack (TIA), and cerebral infarction without residual deficits; Z83.3 Family history of diabetes mellitus; Z68.38 Body mass index [BMI] 38.0-38.9, adult
CPT/HCPCS: 36415; 43239; 71045; 76705; 80048; 80061; 80074; 80076; 80307; 81001; 81025; 82088; 82306; 82607; 82962; 83036; 83735; 83835; 84100; 84244; 84439; 84443; 84480; 84484; 85025; 86703; 86780; 87040; 87086; 93005; 93306; 93975; 94660; 96374; 96375; G0378; J1100; J2250; J2405; J2470; J2704